=== PATIENT | female | born 1985 | race Caucasian/White ===

== ENCOUNTER 2022-07-20 00:19 | Day surgery (SDC) | payer OTHER, SELFPAY ==
[2022-07-17 11:37] VITALS: BMI 29.0
--- NOTE | 2022-07-17 11:47 | PC.NURSE ---
Report to the Outpatient Waiting Room, entrance under the green pavilion located off [facility], at time __0730 on date __07/20/22 . OR Time: . - You and your visitor will be asked to self-screen and do not enter if you have any COVID symptoms. - Only one visitor and NO children visitors are allowed at this time. - The patient visitor is requested to leave or wait in car when not with patient due to restrictions. - A mask is required within the hospital. Patients may have clear liquids (water, carbonated beverages, clear teas, apple juice) until 3 hours prior to surgery with a maximum of 20 ounces. - No food from midnight until time of surgery - Infants may have breast milk until 4 hours before surgery, infant formula 6 hours prior to surgery. - Children will be allowed to drink immediately following surgery. If applicable, please bring a bottle or sippy cup to assist with drinking. Juice, water, soda, and popsicles are readily available. For infants on formula, please bring formula the day of surgery. Pacifiers are allowed. Take the following medications with a SIP of water the morning of surgery: ANTIBIOTIC, PAIN PILL IF NEEDED Medications to discontinue per physician Date to take last dose Please no make-up, nail azerbaijani, hairspray, perfume, deodorant, or body powder the day of surgery. No jewelry (including any body piercings) or valuables the day of surgery, leave them at home. Please take a shower or bath the night before, or the morning of, surgery with an antibacterial soap. Wear comfortable, loose fitting clothing. Children are encouraged to wear pajamas. - Jewelry must be removed prior to entering the operating room. Rings and piercings that are not removed may be cut off. - The hospital will not accept responsibility for valuables. - Please leave all valuables, including medications, at home the day of surgery. If you are going home after surgery, a licensed armored car driver must drive you home. - NO public transportation without another adult. - We recommend that an adult stay with you for 24 hours following discharge. - We also recommend that you do not drive, make important decision, drink alcoholic beverages, or take any drugs that were not prescribed by your health care provider for at least 24 hours after your discharge time. For Pediatric surgeries, we recommend two adults accompany the child home (only one inside the building at this time). Follow any additional instructions given to you from your surgeon. If you or anyone in your household have experienced Covid symptoms in the past week, please notify your surgeon or the nurse liaison at the phone number below for possible testing. Telephone instructions given to ___PT and asked if any additional questions and then verbalized understanding. Patient advised to call surgeon office or pre surgery nurse liaison [phone] if any additional questions.
[2022-07-20] VITALS (8 sets, daily range): BP systolic 96–107; BP diastolic 50–67; PULSE 58–74; RESP 14–18; TEMP 36.1–36.3; O2SAT 99
--- NOTE | 2022-07-20 08:37 | WPDANESEPPF ---
Anes - Initial Pre Proc Eval Procedure: Operation Date: 07/20/22 09:30 Proposed Procedures p Exam Under Anesthesia, Incision and Drainage of Guerita-Rectal Abscess - Elva Bauer MD Date/Time: 07/20/22 08:37 Surgeon: Elva Bauer MD Pre Op Diagnosis: perirectal abscess Patient Data Age: 37 Gender: F Height: 1.8 m Weight: 94.5 kg Last Vital Signs Temp 36.1 C L 07/20/22 08:16 Pulse 70 07/20/22 08:16 Resp 18 07/20/22 08:16 BP 105/64 07/20/22 08:16 Pulse Ox 99 07/20/22 08:16 O2 Del Method Room Air 07/20/22 08:16 Allergies Allergy/AdvReac Type Severity Reaction Status Date / Time venom-wasp Allergy Unknown Anaphylactic Verified 07/20/22 08:21 Shock Home Medications Medication Instructions Recorded Confirmed Type sulfamethoxazole 800 1 tablet PO Q12H #20 tabs 07/14/22 07/20/22 Rx mg-trimethoprim 160 mg tablet (Bactrim DS) hydrocodone 5 mg-acetaminophen 325 1 tablet PO Q4H PRN pain #15 tabs 07/16/22 07/20/22 Rx mg tablet Patient hx anesthesia problems: none Family hx anesthesia problems: none Results Review: All pre-operative results and documents have been reviewed as part of the pre-operative evaluation. [facility] Past Medical History Medical History Abnormal Pap smear of cervix (04/04/14) ascus -HPV Arthritis Asthma BMI 30.0-30.9,adult Encounter for IUD insertion 04/03/05 Mirena insertion 01/10/20 Mirena insertion Encounter for IUD removal (~2009) Mirena removal Hemorrhoid thrombosis Herpes HSV 1 & 2 Perirectal abscess Psoriasis Smoker Surgical History Surgical History History of appendectomy (~2003) S/P skin biopsy Family History Family History Grandparent Acute myocardial infarction Daughter Heart valve regurgitation Heart murmur Sibling Diabetes mellitus sister Social History Social History Smoking packs per day: 0.5 Smoking cigarettes per day: 10.0 Years smoked: 15 Smoking pack-years: 7.50 Smoking status: Current every day smoker Tobacco type: cigarettes Second hand tobacco smoke exposure: Yes Alcohol intake: never Substance use: former Substance use type: marijuana Other substance usage details: A TEEN 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 Living arrangements: with family Additional living arrangements comments: single 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 Gender identity (if verbalized by the patient): Female Sexual Orientation (if Verbalized by the Patient): Straight or Heterosexual Spiritual care concerns: No Anes - Eval Final PreProcedure Day of Procedure 07/20/22 08:37 Patient weight: overweight Heart: regular rate and rhythm Lungs: clear to auscultation and normal air movement Airway: Mallampati scale class II Neurological: alert and oriented Last oral intake: >/= 8 hours ASA classification: II Emergent: no Anesthetic plan: proceed Anesthesia type and monitoring: general LMA and ETT Results Review: All pre-operative results and documents have been reviewed as part of the pre-operative evaluation. Informed Consent: The patient's anesthetic plan and its attendant risks and benefits were discussed with the patient/family/POA. Questions were solicited and answers provided to the satisfaction of the patient/family/POA.
[2022-07-20] MEDS: LACTATED RINGERS 1,000 ML 30 ML IV CONT (08:40)
[2022-07-20] MEDS: ACETAMINOPHEN 500 MG TABLET 1000 MG PO (08:41)
[2022-07-20] MEDS: KETOROLAC 15 MG/ML VIAL (*BKC) IV PUSH (08:41)
--- NOTE | 2022-07-20 08:57 | WPDHPUPDATE1 ---
History and Physical Update Update Date/Time: 07/20/22 08:57 History and Physical has been reviewed, including an updated exam of the patient. There are NO changes in the patient's condition. Risks, benefits, and alternatives have been discussed and questions answered. Patient agrees to proceed with procedure.
[2022-07-20] MEDS: ceFAZolin 2 GM/D5W 50 ML 2 GM/50 ML BAG IVPB (09:11)
[2022-07-20] MEDS: BUPIVACAINE/EPINEPHRINE 0.25% 50 ML VIAL 10 ML INFILTRATE (09:11)
--- NOTE | 2022-07-20 09:34 | W.PM.PROC2 ---
Procedure Note - Detailed Date of Procedure 07/20/22 Pre-op Diagnosis perirectal abscess Post-op Diagnosis Same Procedure Performed 1. Rectal exam under anesthesia 2. Incision and drainage of perirectal abscess Surgeon Fox Sevilla, DO Anesthesia MAC and Local (0.25% bupivacaine with epinephrine) Indications This is a 37-year-old woman who presented with perirectal swelling and pain. She was referred for possible thrombosed external hemorrhoid, but on exam there appeared to be a deeper area of fluctuance suspicious for a perirectal abscess. Incision and drainage was performed on 07/14/2022, but minimal drainage was expressed. She continued to have swelling and pain on a short follow-up therefore decision was made to proceed with rectal exam under anesthesia with deeper incision and drainage of perirectal abscess. Findings Rectal exam under anesthesia was performed. Upon digital rectal exam, no deep palpable abnormalities were noted. A Hill-Cheung anoscope was then also inserted in the anal rectal canal was carefully inspected. There was no evidence of internal fistula or other abnormalities internally. The anterior midline area of induration and swelling was the only abnormality noted. The deeper incision and drainage was performed. Scant purulence drainage was noted. There was not enough to perform cultures. The wound was then packed with quarter-inch iodoform gauze. Description of Procedure Procedure as well as risks, benefits, and alternatives were discussed with the patient. Written consent was obtained and placed in chart prior to procedure. Patient was brought back to surgical suite. She was placed supine on operating table. Time-out was done to confirm patient and procedure. LMA was then placed by the Anesthesia Department and general anesthesia was administered. She was placed in dorsal lithotomy position and her perirectal region was prepped and draped in sterile fashion using Betadine prep. Digital rectal exam was performed. A Hill-Cheung anoscope was then inserted and the anal rectal canal was carefully inspected. No internal abnormalities were noted. 0.5% bupivacaine with epinephrine was infiltrated around the anterior midline region where the perirectal abscess was. The incision was extended to about 2 cm using a 15 blade scalpel. A curved hemostat was then carefully used to dissect between the sphincter muscle fibers and drain any residual abscess. Scant drainage was noted, but no other abnormalities were encountered. The wound was then packed with quarter-inch iodoform gauze. Fluff gauze and mesh underwear were then applied. The patient was then awakened from anesthesia, extubated, and transferred to recovery. Estimated Blood Loss 5 Packing Yes (Quarter-inch iodoform gauze) Complications No immediate complications Condition Stable Disposition Same day [facility] Billing Surgery - Charge Forward: Surgery Billing
[2022-07-20] MEDS: fentaNYL CITRATE INJ (*CRX) 100 MCG/2 ML VIAL 25 MCG IV PUSH ×2 (10:05→10:10)
[2022-07-20] MEDS: oxyCODONE HCL (*CRX) 5 MG TAB IR PO (10:41)
== END 2022-07-20 11:35 | disposition home or self-care (01) ==
PROVIDERS: Visit Provider Surgery
PROC: (CPT 46040; principal; 2022-07-20 09:30)
DX: K61.1 Rectal abscess (principal); M19.90 Unspecified osteoarthritis, unspecified site; J45.909 Unspecified asthma, uncomplicated; L40.9 Psoriasis, unspecified; F17.210 Nicotine dependence, cigarettes, uncomplicated; F12.90 Cannabis use, unspecified, uncomplicated
CPT/HCPCS: 46040; A9270; J0690; J1100; J1885; J2250; J2405; J2704; J3010; J7120

== ENCOUNTER 2024-11-17 02:27 | Day surgery (SDC) | payer OTHER, SELFPAY ==
[2024-11-15 13:29] VITALS: BMI 29.9
--- NOTE | 2024-11-15 13:30 | PC.NURSE ---
Report to the Outpatient Waiting Room, entrance under the green pavilion located off [facility], at time _0800_ on date _[id number]_. Planned Procedure Time: _1000_.? Time changes happen often and if your time is changed the preop area will call you the afternoon before. - You and your visitor will be asked to self-screen and do not enter if you have any COVID symptoms. Please call surgeon if you need to reschedule. - A mask is optional within the hospital at this time. Patients may have clear liquids (water, carbonated beverages, clear teas, apple juice) until 3 hours prior to surgery with a maximum of 20 ounces. - No food from midnight until time of surgery and no smoking. This includes no chewing gum, candy or mints. Take only the following medications with a SIP of water on the morning of surgery: ____Inhaler if needed. DO NOT STOP ANY OF YOUR OTHER PRESCRIPTION MEDICATIONS PRIOR TO SURGERY EXCEPT THE FOLLOWING Medications to discontinue per physician Prenatal vitamin Date to take last dose____Stop now. Please no make-up, nail mongolian, hairspray, perfume, deodorant, or body powder the day of surgery.? No jewelry (including any body piercings) or valuables the day of surgery, leave them at home.? Please take a shower or bath the night before, or the morning of, surgery with an antibacterial soap.? Wear comfortable, loose fitting clothing.? - Jewelry must be removed prior to entering the operating room.? Rings and piercings that are not removed may be cut off. - The hospital will not accept responsibility for valuables.? - Please leave all valuables, including medications, at home the day of surgery. If you are going home after surgery, a licensed regional flatbed truck driver must drive you home.? - NO public transportation without another adult if you receive anesthesia. - We recommend that an adult stay with you for 24 hours following discharge. - We also recommend that you do not drive, make important decision, drink alcoholic beverages, or take any drugs that were not prescribed by your health care provider for at least 24 hours after your discharge time. Follow any additional instructions given to you from your surgeon. Telephone instructions given to __Amy__and asked if any additional questions and then verbalized understanding. Patient advised to call surgeon office or pre surgery nurse liaison [phone] if any additional questions.
--- NOTE | 2024-11-16 14:31 | WPDANESEPPF ---
Anes - Initial Pre Proc Eval Procedure: Operation Date: 11/17/24 10:00 Proposed Procedures p Suction Dilatation and Curettage - Toni Melendez MD Date/Time: 11/16/24 14:31 Surgeon: Toni Melendez MD Pre Op Diagnosis: missed AB Patient Data Age: 39 Gender: F Height: 1.77 m Weight: 93.2 kg Allergies Allergy/AdvReac Type Severity Reaction Status Date / Time venom-wasp Allergy Unknown Anaphylactic Verified 11/17/24 08:18 Shock Home Medications ?Medication ?Instructions ?Recorded ?Confirmed ?Type vitamins-iron fumarate 65 1 tablet PO DAILY 10/23/24 11/17/24 History mg iron-folic acid 1 mg tablet albuterol sulfate 90 mcg/actuation 2 puff inhalation Q6H PRN 11/15/24 11/17/24 History aerosol inhaler shortness of breath or wheezing Patient hx anesthesia problems: none Family hx anesthesia problems: none Results Review: All pre-operative results and documents have been reviewed as part of the pre-operative evaluation. [facility] Past Medical History Medical History Bursitis Screen for STD (sexually transmitted disease) BMI 30.0-30.9,adult Perirectal abscess REUA and I&D perirectal abscess on 07/20/22. Hemorrhoid thrombosis Smoker Arthritis Encounter for IUD removal (~2009) Mirena removal Encounter for IUD insertion 04/03/05 Mirena insertion 01/10/20 Mirena insertion Herpes HSV 1 & 2 Psoriasis Abnormal Pap smear of cervix (04/04/14) ascus -HPV Asthma Surgical History Surgical History History of shoulder surgery (~01/2024) H/O hemorrhoidectomy S/P skin biopsy History of appendectomy (~2003) Family History Family History Grandparent Acute myocardial infarction Daughter Heart valve regurgitation Heart murmur Sibling Diabetes mellitus sister Social History Social History Smoking packs per day: 0.5 Smoking cigarettes per day: 10.0 Years smoked: 15 Smoking pack-years: 7.50 Smoking status: Current every day smoker Tobacco type: cigarettes Second hand tobacco smoke exposure: Yes Alcohol intake: never Substance use: former Substance use type: marijuana Other substance usage details: A TEEN 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 Do You Feel Safe in your Home?: Yes Lack of Transportation: No Lack of Food: Never True Current Housing: I Have Housing Concerned About Future Housing: No Difficulty Paying Gas/Electric Bills: No Difficulty Paying for Meds: No Currently Unemployed: No Education: High School Diploma/GED Difficulty w/ Childcare or Family Care: No Living arrangements: with family Additional living arrangements comments: fiance Occupation/Education: occupation 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 Gender identity (if verbalized by the patient): Female Sexual Orientation (if Verbalized by the Patient): Straight or Heterosexual Spiritual care concerns: No Anes - Eval Final PreProcedure Day of Procedure 11/16/24 14:31 Patient weight: overweight Heart: regular rate and rhythm Lungs: clear to auscultation Airway: Mallampati scale class II Neurological: alert and oriented Last oral intake: >/= 8 hours ASA classification: II Emergent: no Anesthetic plan: proceed Anesthesia type and monitoring: general GIVS and standard monitoring Results Review: All pre-operative results and documents have been reviewed as part of the pre-operative evaluation. Informed Consent: The patient's anesthetic plan and its attendant risks and benefits were discussed with the patient/family/POA. Questions were solicited and answers provided to the satisfaction of the patient/family/POA.
[2024-11-17] VITALS (7 sets, daily range): BP systolic 96–105; BP diastolic 46–62; PULSE 58–68; RESP 14–16; TEMP 36.7; O2SAT 98–100
--- NOTE | 2024-11-17 07:46 | WPDHPUPDATE1 ---
History and Physical Update Update Date/Time: 11/17/24 07:46 History and Physical has been reviewed, including an updated exam of the patient. There are NO changes in the patient's condition. Risks, benefits, and alternatives have been discussed and questions answered. Patient agrees to proceed with procedure.
[2024-11-17] MEDS: ACETAMINOPHEN 500 MG TABLET 1000 MG PO (08:26)
[2024-11-17] MEDS: LACTATED RINGERS 1,000 ML 30 ML IV CONT (08:55)
[2024-11-17 09:20] LABS: Hematocrit 33.2 % (37.0-47.0); Hemoglobin 11.3 g/dL (12.0-15.0); Mean Corpuscular Hemoglobin 30.9 pg (26-34); Mean Corpuscular Volume 90.7 fl (80-100); Mean Platelet Volume 9.9 fl (7.4-10.4); Platelet Count Result 202 k/mm3 (150-375); Red Blood Count 3.66 M/mm3 (4.2-5.4); Red Cell Distribution Width 12.4 % (11.5-14.5); White Blood Count 6.5 K/mm3 (4.5-10.0)
--- NOTE | 2024-11-17 10:22 | W.PM.PROC2 ---
Procedure Note - Detailed Date of Procedure 11/17/24 Pre-op Diagnosis missed AB Post-op Diagnosis Same Procedure Performed Suction curettage Surgeon Toni Melendez MD Anesthesia MAC Findings Moderate amount of retained products of conception Description of Procedure Patient was prepped and draped in usual manner for this procedure. Anterior cervix was grasped with single-tooth tenaculum and cervix was readily dilated to allow an 8mm suction curette be placed. The depth of the uterine cavity was 10 cm. Using the suction curette the intrauterine contents were readily removed. Sharp curette throughout with no remaining tissue no significant bleeding. At this point the procedure was considered terminated. Patient was sent to recovery room in good condition. Estimated Blood Loss 100 Drains No Packing No Pathology Yes Complications No immediate complications Condition Stable Disposition PACU [facility] Billing Surgery - Charge Forward: Surgery Billing
[2024-11-17] MEDS: oxyCODONE HCL (*CRX) 5 MG TAB IR PO (11:22)
== END 2024-11-17 11:47 | disposition home or self-care (01) ==
PROVIDERS: Visit Provider Obstetrics & Gynecology
PROC: (CPT 59820; principal; 2024-11-17 10:00)
DX: O02.1 Missed abortion (principal); F17.210 Nicotine dependence, cigarettes, uncomplicated
CPT/HCPCS: 59820; 36415; 85027; 88305; A9270; J2003; J2250; J2704; J3010; J7120

== ENCOUNTER 2024-11-21 08:05 | Outpatient (CLI) | payer OTHER, SELFPAY ==
--- NOTE | ~2024-11-21 | US_ITS ---
EXAMINATION: US pelvic complete w TV DATE: 11/21/2024 12:08 INDICATION: Pelvic pain. Other acute post procedural pain. TECHNIQUE: Multiple transabdominal and transvaginal sonographic images of the pelvis were obtained. COMPARISON: Ultrasound 11/15/2024 FINDINGS: TRANSABDOMINAL ULTRASOUND: The uterus measures 9.0 x 6.7 x 2.7 cm. There is no free fluid in the pelvis. TRANSVAGINAL ULTRASOUND: The endometrial complex measures 18 mm in thickness. The right ovary measures 4.6 x 2.8 x 2.9 cm. The left ovary measures 4.7 x 3.1 x 3.1 cm. IMPRESSION: 1. Thickened endometrial complex, consistent with retained products of conception. Reviewed, dictated and finalized at location A. [facility] IMPRESSION: 1. Thickened endometrial complex, consistent with retained products of concepti on.
--- OUTSIDE RECORDS SUMMARY | 2024-11-28 06:01 | XMS_ITS | Encounter Summary ---
Author Organization [facility] Address [address] [place] [address] Care Team Providers Care Canine Service Teacher Name Role Phone Toni Melendez MD Primary Care Provider [phone] Reason for Referral * Cardiac (Routine) - Closed Specialty Diagnoses / Procedures Referred By Jonah delacruz Referred To Contact Cardiology Diagnoses Prior with congenital cardiac defect, antepartum, second trimester (HCC) Procedures ECHO CONSULT - Maxim Mayer MD [address] [place] [address] [place] [address] Referral ID Status Reason Start Date Expiration Date Visits Re quested Visits Authorized [id number] Closed 04/28/2017 10/25/2017 1 1 Reason for Visit * Cardiac (Routine) - Closed Specialty Diagnoses / Procedures Referred By Jonah delacruz Referred To Contact Cardiology Diagnoses Prior with congenital cardiac defect, antepartum, second trimester (HCC) Procedures ECHO CONSULT - Maxim Mayer MD [address] [employer] [address] [place] [address] [place] [address] Referral ID Status Reason Start Date Expiration Date Visits Re quested Visits Authorized [id number] Closed 04/28/2017 10/25/2017 1 1 Encounter Details Date Type Department Care Team (Latest Contact Info) Description 05/20/2017 10:45 AM CDT - 05/20/2017 11:59 PM CDT Hospital [facility] [address] [place] [address]. [place] [address] Damaris Yo MD [address] [place] [address] Discharge Disposition: Home or Self Care Social History Tobacco Use Types Packs/Day Years Used Date Smoking Tobacco: Every Day Cigarettes 0.5 10 Comments Yes Sex and Gender Information Value Date Recorded Sex Assigned at Not on file Gender Identity Female 04/21/2018 2:50 PM CDT Sexual Orientation Not on file documented as of this encounter Consult Notes * Damaris Yo MD - 05/20/2017 11:34 AM CDT Images from the original note were not included. Echocardiogram and Consultation Date: 05/20/2017 : [place] Referring Physician: Maxim Mayer MD [address] [place] [address] Melendez and Dr. Mayer: I had the pleasure of seeing your patient, Chelsea Hays, for echocardiographic evaluation and consultation on 05/20/2017. Indications for echocardiogram include a history of previous child with congenital heart disease. The previous child had a history of dilated ductus venosus and tri cuspid regurgitation prenatally. We were concerned that the ductus venosus would not close postnatally, however it did close and the tricuspid valve normalized. The child does have an atrial septal defect which persists and she is followed for this. The following clinical information was available at the time of the evaluation: Maternal Age: 32 y.o. Gestational Age: 27w1d Estimated Date of Delivery: 08/18/17 History : Complications of the : none Maternal Medical History: None Medications: vitamins Family History of Congenital Heart Disease: Yes, as noted above Previous Ultrasound: normal Abnormal HeartTones: none detected A complete 2-D, pulse wave and color Doppler echocardiogram was performed. The quality of thestudy was technically adequate. 2-D Findings: Visceroatrial situs solitus with levocardia. The systemic venous return was normal. There was atrioventricular and ventriculoarterial concordance. The right atrium and left atrium appeared normal size. There was a patent foramen ovale which bowed from right to left. The mitral valve and tricuspid valves were morphologically normal. The right and left ventricles were normal size for gestational age with normal wall thickness and normal systolic function. The ventricular septum appeared intact. The great vessels were normally related. The branch pulmonary arteries were confluent. A ductal arch was identified. The aortic arch appeared normal. No pericardial or pleural effusion. Doppler Examination: There was normal mitral and tricuspid inflow patterns with a dominant A wave and smaller E wave. No mitral or tricuspid insufficiency. There was normal laminar flow across the aortic and pulmonary valves. There was normal sqiux-fk-kkgj shunting across the ductus arteriosus in systole with a small amount in diastole. There was normal flow pattern in the transverse aortic arch.No arrhythmia was detected. IMPRESSION: Normal echocardiogram. RECOMMENDATIONS: I reviewed the findings of today's echocardiogram with the mother of the baby. I reassured her that there are no identified cardiac malformations on today's study, but that minor defects, such as small muscular VSDs or minor valve defects, could still be present postnatally. Based on the findings today, no further cardiology follow-up is needed unless new concerns or symptoms arise. Thank you again for allowing us to participate in the care of this patient. If you have any furtherquestions, please do not hesitate to contact me at . In general, echocardiography has an excellent sensitivity and specificity. However, certain heart lesions cannot be diagnosed in the fetus as they are a normal part of the circulation, e.g. secundum atrial septal defects and patent ductus arteriosus. Other congenital heart lesions that have proven difficult to diagnose in a fetus include coarctation of the aorta, total or partial anomalous pulmonary venous return, small ventricular septal defects, and coronary anomalies. Nor can we predict late gestation myocarditis or arrhythmias later in life such as Jhuiq-Qlaswflgj-Lpuap syndrome. Total time spent with the patient was 30 minutes with >50% time spent counseling regarding findings and limitations, and coordinating care. Sincerely, Damaris Yo MD documented in this encounter Plan of Treatment Not on file documented as of this encounter Procedures Procedure Name Priority Date/Time Associated Diagnosis Comments ECHO CONSULT - Routine 05/20/2017 11:08 AM CDT Prior with congenital cardiac defect, antepartum, second trimester (HCC) documented in this encounter Results * ECHO CONSULT - (05/20/2017 11:08 AM CDT) 05/20/2017 11:0 8 AM CDT Narrative Procedure Note Damaris Yo MD - 05/20/2017 [facility] [place] [id number] Fax Echocardiogram Report Pat.Name: CHELSEA HAYS Pat.ID: [id number] .Date: 05/20/2017 Exam Time: 11:08:00 AM Study Type: Echo Age: 4 1985,32Y Sex: FEMALE Sonogrphr: Suad Benítez RDCS Pat. Stat.:Outpatient CPT - 4: [id number], [id number], [id number], [id number] Reason for Study:Previous child with CHD History / Clinical:Previous child with CHD 08/18/17 210 Procedures: 2D Complete, Doppler Complete, Color Flow Visit ID: [id number] SUMMARY: Study Data: GA: 27w1d weeks. NINA: 08/18/2017 . : 5. Para: 4. Type: Brasher. Lie: Vertex. Impression: The echocardiogram was within normal limits; however small atrial and ventricular septal defects and persistent ductus arteriosus cannot be excluded as findings. Findings: Anatomic Relationships: Left sided cardiac apex (levocardia). There is normal visceral-cardiac situs, and normal segmental cardiac anatomical relationship. Systemic Veins: There is normal systemic venous return. Pulmonary Veins: The visualized pulmonary veins drain normally to the left atrium. Right Atrium: The right atrial size is normal. Left Atrium: The left atrial size is normal. Atrial Septum: Patent foramen ovale is seen with the foramen flap bowing from right to left and color flow is right to left. Tricuspid Valve: The tricuspid valve is structurally normal. The inflow pattern is normal. Tricuspid velocity is within the normal range. There is no regurgitation present. Mitral Valve: The mitral valve is structurally normal. The inflow pattern is normal. Mitral velocity is within the normal range. There is no regurgitation present. Right Ventricle: The cavity size is normal. The wall thickness is normal. The systolic function is normal. RV Outflow Tract: The outflow tract is normal. Left Ventricle: The cavity size is normal. The wall thickness is normal. The systolic function is normal. LV Outflow Tract: The outflow tract is normal. Ventricular Septum: There is no defect with no shunting. Pulmonary Valve: Leaflets exhibited normal mobility. The transpulmonic velocity is within the normal range. There is no regurgitation present. Aortic Valve: Leaflets exhibited normal mobility. The transaortic velocity is within the normal range. There is no regurgitation present. Pulmonary Artery: The MPA is normal with confluent branch pulmonary arteries. Aorta: aortic arch visualized and is without obstruction by 2D, color flow and Doppler. Ductus Arteriosus: The antegrade flow velocity and pattern in the ductal arch is normal. A normal ductus arteriosus is appreciated. Hydrops Assessment: No pericardial effusion. No evidence of ascites or pleural effusion. Rhythm: The rhythm is normal. There is 1:1 AV conduction. Dopplers: Flow in the ductus venosus is normal. The umbilical vein flow pattern is normal. The umbilical artery flow pattern is normal. MEASUREMENTS: DOPPLER Mitral Valve MV pkE 0.4 m/s MV pkA 0.5 m/s Tricuspid Valve TV pkE 0.4 m/s TV pkA 0.6 m/s Aortic Valve AVpkPG 2.9 mmHg AVpkVel 0.8 m/s Pulmonic Valve PV pkPG 1.9 mmHg PV pkVel 0.7 m/s MMODE HR 125.2 bpm HR 125.2 bpm Signed 05/20/2017 03:50 PM Damaris Yo MD Maxim Mayer MD ECHO ORDERABLES Performing Organization Address City/State/[facility] Co de Phone Number [facility] [address] [place] [address] documented in this encounter Visit Diagnoses Diagnosis Prior with congenital cardiac defect, antepartum, second trimester (HCC) documented in this encounter Care Teams Canine Service Teacher Relationship Specialty Start Date End Date Toni Melendez MD [address] [facility] [address] [place] [address] PCP - General Obstetrics and Gynecology 05/20/17 documented as of this encounter
--- OUTSIDE RECORDS SUMMARY | 2024-11-28 06:01 | XMS_ITS | Encounter Summary ---
Author Organization [facility] Address [address] [place] [address] Care Team Providers Care Business Risk Consultant Name Role Phone Holger Alves MD Primary Care Provider [phone] Encounter Details Date Type Department Care Team (Latest Contact Info) Description 08/31/2014 2:44 PM CDT - 08/31/2014 11:59 PM CDT Hospital Encounter [facility] & Care [address] [place] [address] Maxim Mayer MD [address] [address] Discharge Disposition: Home or Self Care Social History Tobacco Use Types Packs/Day Years Used Date Smoking Tobacco: Every Day Cigarettes 0.5 10 Comments Yes Sex and Gender Information Value Date Recorded Sex Assigned at Not on file Gender Identity Female 04/21/2018 2:50 PM CDT Sexual Orientation Not on file documented as of this encounter Plan of Treatment Not on file documented as of this encounter Procedures Procedure Name Priority Date/Time Associated Diagnosis Comments FIRST TRI NUCHAL TRANSLUCENCY W:SEQ SCREEN Routine 08/31/2014 3:34 PM CDT Encounter for nuchal translucency testing (HCC) documented in this encounter Results * FIRST TRI NUCHAL TRANSLUCENCY W:SEQ SCREEN (08/31/2014 3:34 PM CDT) Anatomical Region Laterality Modality Other 08/31/2014 3:34 PM CDT Narrative 08/31/2014 4:25 PM CDT ?[facility] Maternal Medicine ? [facility] ?PHONE: ??FAX: ? Pat. Name: ?CHELSEA DANIEL Pat. No: ?[id number] Study Date: ?? 08/31/2014 ??3:34pm , Age: ? 1985, 29 LMP: ?Unknown GA by US: ? 10w4d GA Selected: ??10w1d (From Known E) NINA: ?03/28/2015 Referring MD: Edelmira Andrade MD Bus Driver: ??Magda Roldan RDMS Hist/Ind: ? Previous Child with a Heart Defect ?NIPT MEASUREMENTS & AGE ? GROWTH EVALUATION Measurement ??GA ? Range ? Srce %for GA Ratios ----- ---- ------- CRL ??3.7 cm 10w4d ([id number]) Hadl CRL 72% GA for sonogram 10w4d ([id number]) based on (CRL) Avg ? Heart Rate: 168 bpm CLINICAL SUMMARY Study Number: ??1 A single intrauterine gestational sac is seen. ??The gestational sac contains a embryonic pole and a yolk sac. ??The right ovary was not visualized. ??The left ovary was not visualized. ??There is no free fluid in the cul de sac. Blood was drawn for NIPT. IMPRESSION: Single, live IUP at 10w1d No gross anomalies seen RECOMMEND: ?? Follow up ultrasound at 20 weeks for anatomy survey Patient with history of prior child with VSD Patient elected for NIPT with 22q testing Thank you for allowing us the opportunity to care for your patient. Maxim Mayer MD <Electronic Signature> ??08/31/2014 04:26pm Edelmira Andrade MD [facility] ORDERABLES documented in this encounter Visit Diagnoses Diagnosis Encounter for nuchal translucency testing (HCC)- Primary Other specified screening Prior with congenital cardiac defect, antepartum, first trimester (HCC) Supervision of other normal , first trimester (HCC) documented in this encounter Care Teams Business Risk Consultant Relationship Specialty Start Date End Date Holger Alves MD [address] [place] [address] [address] [place] [address] PCP - General Internal Medicine 05/30/13 01/07/15 documented as of this encounter
--- OUTSIDE RECORDS SUMMARY | 2024-11-28 06:01 | XMS_ITS | Encounter Summary ---
Author Organization [facility] Address [address] [facility] [place] [address] Care Team Providers Care Export Coordinator Name Role Phone Toni Melendez MD Primary Care Provider [phone] Reason for Visit * Evaluate & Treat (Routine) - Closed Specialty Diagnoses / Procedures Referred By Jonah delacruz Referred To Contact Cardiology Diagnoses Supervision of other high risk pregnancies, unspecified trimester (HCC) Maternal care for (suspected) hereditary disease in fetus, not applicable or unspecified (HCC) Procedures [place] [facility] Elana Lin NP [address] [facility] [address] [place] [address] [address] Referral ID Status Reason Start Date Expiration Date Visits Re quested Visits Authorized [id number] Closed 05/10/2018 02/03/2019 1 1 Encounter Details Date Type Department Care Team (Latest Contact Info) Description 05/10/2018 2:30 PM CDT - 05/10/2018 11:59 PM CDT Hospital Encounter [facility] at [address] [address] Blanca Mendoza MD [address] [place] [address] Discharge Disposition: Home or Self Care Social History Tobacco Use Types Packs/Day Years Used Date Smoking Tobacco: Every Day Cigarettes 0.5 10 Comments Yes Sex and Gender Information Value Date Recorded Sex Assigned at Not on file Gender Identity Female 04/21/2018 2:50 PM CDT Sexual Orientation Not on file documented as of this encounter Consult Notes * Blanca Mendoza MD - 05/10/2018 3:15 PM CDT Images from the original note were not included. Attending Physician: Blanca Mendoza MD Office Echocardiogram and Consultation Date: 05/10/2018 Institution:[facility] Referring Physician: Elana Lin NP [address] [address] [address] [place] [address] Dear Elana Lin NP, I had the pleasure of seeing your patient, Chelsea Hays, for echocardiographic evaluation and consultation on 05/10/2018. Indications for echocardiogram include a history of previous child with congenital heart disease. The following clinical information was available at the time of the evaluation: Maternal Age: 33 years old. Gestational Age: 26 2/7 weeks. Estimated Date of Delivery: 08/14/2018 History : G6,P5. Complications of the : Admitted recently due to contractions. Maternal Medical History: Psoriasis History of antepartum diabetes: No Medications: vitamins Family History of Congenital Heart Disease: Yes; Daughter Maureen (4yrs) with large ductus venosus and tricuspid regurgitation. Residual atrial septal defect followed by Dr. Yo. Social History: . Smoker. 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 The aortic and pulmonary valves were thin and mobile. The branch pulmonary arteries were confluent. A ductal arch was identified. The aortic arch appeared normal. No pericardial or pleural effusion. Doppler Examination: There were normal mitral and tricuspid inflow patterns with a dominant A wave and smaller E wave. No mitral or tricuspid insufficiency. There was normal laminar flow across the aortic and pulmonary valves. There was normal rbelq-es-oeku shunting across the ductus arteriosus in systole with a small amount in diastole. There was normal flow pattern in the transverse aortic arch. No arrhythmia was detected. heart rate was 138 beats per minute. Normal umbilical artery andumbilical vein flow profiles. Normal ductus venosus flow profile. Abnormal HeartTones: none detected IMPRESSION:No evidence of congenital heart disease. RECOMMENDATIONS: I reviewed the findings of today's echocardiogram with . Chelsea Hays and her aunt. The echocardiogram showed a structurally normal heart without evidence of cardiac pathology and noabnormal heart rhythms were noted. No further follow-up is required unless any new cardiacconcerns are noted. Thank you again for allowing us to participate in the care of this patient. If you have any furtherquestions, please do not hesitate to contact me at . Sincerely, Blanca Mendoza MD In general, echocardiography has an excellent sensitivity [...] or arrhythmias later in life such as Wxiod-Adxpdknwm-Yalrc syndrome. Total time spent with the patient was 45 minutes with >50% time spent counseling regarding findings and limitations. documented in this encounter Plan of Treatment Not on file documented as of this encounter Procedures Procedure Name Priority Date/Time Associated Diagnosis Comments ECHO CONSULT - Routine 05/10/2018 2:48 PM C DT Prior with congenital cardiac defect, antepartum (HCC) documented in this encounter Results * ECHO CONSULT - (05/10/2018 2:48 PM CDT) 05/10/2018 2:48 PM CDT Narrative Procedure Note Blanca Mendoza MD - 05/10/2018 [place] [address] Fax Echocardiogram Report Pat.Name: CHELSEA HAYS Pat.ID: [id number] St.Date: 05/10/2018 Exam Time: 2:48:00 PM Study Type: Echo Age: 4 1985,33Y Sex: FEMALE Sonogrphr: JENNIFER Green Pat. Stat.:Outpatient Reason for Study:Family History of Congenital Heart Disease Procedures: 2D Complete, Doppler Complete, Color Flow Visit ID: [id number] SUMMARY: Study Data: GA: 26/2 weeks. NINA: 08/14/2018 . : 6. Para: 5. Type: [place]. Lie: Breech. Impression: The echocardiogram was within normal limits; [...] Mitral Valve MV pkE 0.4 m/s MV E/A 0.8 no unit MV pkA 0.5 m/s Aortic Valve AVpkVel -0.9 m/s Pulmonic Valve PV pkVel 0.7 m/s Thorax Cardiac Circumf 98.4 mm CTCR 0.6 no unit Thorax Circumfe 179.9 mm Signed 05/10/2018 04:23 PM Blanca Mendoza MD Blanca Mendoza MD ECHO ORDERABLES [facility] [address] [place] [address] documented in this encounter Visit Diagnoses Diagnosis Prior with congenital cardiac defect, antepartum (HCC)- Primary with other poor obstetric history documented in this encounter Care Teams Export Coordinator Relationship Specialty Start Date End Date Toni Melendez MD [address] [place] [address] PCP - General Obstetrics and Gynecology 05/20/17 documented as of this encounter
--- OUTSIDE RECORDS SUMMARY | 2024-11-28 06:01 | XMS_ITS | Encounter Summary ---
Author Organization [facility] Address [address] [place] [address] Care Team Providers Care Tannery Worker Name Role Phone Holger Alves MD Primary Care Provider [phone] Encounter Details Date Type Department Care Team (Latest Contact Info) Description 12/11/2014 11:00 AM QUALITY TECH - 12/11/2014 11:59 PM QUALITY TECH Hospital Encounter [facility] Care [address] [place] [address] Yamilka Leroy MD [address] [id number] Discharge Disposition: Home or Self Care Social [...] Procedure Name Priority Date/Time Associated Diagnosis Comments SONOGRAM - COMPLETE Routine 12/11/2014 11:49 AM QUALITY TECH Encounter for routine screening for malformation using ultrasonics documented in this encounter Results * SONOGRAM - COMPLETE (12/11/2014 11:49 AM QUALITY TECH) Anatomical Region Laterality Modality Other 12/11/2014 11:4 9 AM QUALITY TECH Narrative 12/11/2014 1:37 PM QUALITY TECH ?[facility] Maternal Medicine ? M[facility] Care Center ?PHONE: ??FAX: ? Pat. Name: ?CHELSEA HAYS Pat. No: ?[id number] Study Date: ?? 12/11/2014 ??11:49am , Age: ? 1985, 29 LMP: ?Unknown GA by 1st: ?24w5d GA by US: ? 24w3d GA Selected: ??24w5d (From First S) NINA: ?03/28/2015 Referring MD: Edelmira Andrade MD Circulating Nurse: ??Kenyetta Earl RDMS CPT4: ? [address] Hist/Ind: ? Incomplete anatomic survey ?Prior child with congential heart defect MEASUREMENTS & AGE ? GROWTH EVALUATION Measurement ??GA ? Range ? Srce %for GA Ratios ----- ---- ------- BPD ??5.8 cm 23w5d ([id number]) Hadl BPD 25% FL/BPD 0.78 (0.71 - 0.87) HC ??22.3 cm 24w2d (03t5s-52b7i) Hadl HC ??42% FL/AC ??0.23 (0.20 - 0.24) AC ??19.9 cm 24w4d ([id number]) Hadl AC ??47% HC/AC ??1.12 (1.02 - 1.21) FL ?? 4.5 cm 24w6d (00t5t-60n8s) Hadl FL ??53% CI ? 0.73 (0.70 - 0.86) HL ?? 4.1 cm 24w4d ([id number]) Ted HL ??47% GA for sonogram 24w3d (25g1n-90e5i) ?? Weight Estimate: based on (HL,BPD,HC,AC,FL) Avg ? Weight: 716 gm (612-821) Hadlock ? : 1lbs, 9oz ? Normal: 752 gm (564-940) Hadlock ? Wt% ? 41% for 24w5d Heart Rate: 128 bpm CLINICAL SUMMARY Study Number: 3 A single fetus is identified breech presentation. The amniotic fluid volume is within normal limits. ??The placenta is posterior. IMPRESSION: ?? 1) Brasher gestation, 24w5d 2) Biometry is consistent with the previously established NINA of 03/28/15 3) No structural abnormalities have been detected on the, now complete, anatomic survey NOTE: The patient was advised that ultrasound does not allow detection of all structural or chromosomal abnormalities. ?? RECOMMEND: ?? Follow up at the [facility] for a echo in 4 weeks Thank you for allowing us the opportunity to care for your patient. Yamilka Leroy MD <Electronic Signature> ??12/11/2014 01:37pm Yamilka Leroy MD [facility] ORDERABLES documented in this encounter Visit Diagnoses Diagnosis Encounter for routine screening for malformation using ultrasonics (HCC)- Primary Encounter for routine screening for malformation using ultrasonics Prior with congenital cardiac defect, antepartum, second trimester (HCC) documented in this encounter Care Teams Tannery Worker Relationship Specialty Start Date End Date oHlger Alves MD [address] [place] [address] [address] [place] [address] PCP - General Internal Medicine 05/30/13 01/07/15 documented as of this encounter
--- OUTSIDE RECORDS SUMMARY | 2024-11-28 06:01 | XMS_ITS | Encounter Summary ---
Author Organization [facility] Address [address] [place] [address] Care Team Providers Care Academic Affairs Coordinator Name Role Phone Holger Alves MD Primary Care Provider [phone] Reason for Referral * - Closed Specialty Diagnoses / Procedures Referred By Contac t Referred To Contact Cardiology Diagnoses abnormality in (HCC) Procedures ECHO CONSULT - Echo 10199 Placido Cortez MD [address] [facility] [address] [place] [address] Referral ID Status Reason Start Date Expiration Date Visits Re quested Visits Authorized [id number] Closed 06/14/2013 12/03/2013 1 1 Encounter Details Date Type Department Care Team (Latest Contact Info) Description 06/02/2013 3:30 PM CDT - 06/02/2013 11:59 PM CDT Hospital Encounter [facility] [address] [place] [address] Placido Cortez MD [address] [place] [address] Discharge Disposition: Home or Self Care Social History Tobacco Use Types Packs/Day Years Used Date Smoking Tobacco: Every Day Cigarettes 0.5 10 Tobacco Cessation:Ready to Q uit: No Comments Yes Sex and Gender Information Value Date Recorded Sex Assigned at Not on file Gender Identity Female 04/21/2018 2:50 PM CDT Sexual Orientation Not on file documented as of this encounter Plan of Treatment Not on file documented as of this encounter Procedures Procedure Name Priority Date/Time Associated Diagnosis Comments SONOGRAM - COMPLETE Routine 06/02/2013 5 :05 PM CDT abnormality in (HCC) documented in this encounter Results * ECHO CONSULT - (06/14/2013 3:42 PM CDT) 06/14/2013 3:42 PM CDT Narrative [facility] - 06/16/2013 11:24 AM CDT [facility] , Echocardiogram 2D, Doppler, and Color Doppler Name: CHELSEA DANIEL MR #: [id number] Study date: 06/14/2013 Age: : 1985 Gender: Female Ht: / Wt: / BSA: HR: BP: / age: 32 weeks NINA: 08/06/2013 Maternal age: 28 years CARDIOVASCULAR OR NURSE: ??Damaris oY MD PEDIATRIC ECHO TETRYL SCREEN OPERATOR: ??JENNIFER Green History/ Indications: Dilated ductus venosus. Rule out CHD. Procedure: The study was performed in the [facility] [place]. Echocardiogram. The mother was G 3, P 2. type: single fetus. The fetus is in vertex presentation. rhythm: The rhythm was normal. There was 1:1 AV conduction. dopplers: Flow in the ductus venosus was normal. The umbilical vein flow pattern was normal. The umbilical artery flow pattern was normal. Anatomic relationships: Visceral situs: normal. Left sided cardiac apex (levocardia). There was normal visceral-cardiac situs, and normal segmental cardiac anatomical relationship. Systemic veins: There was normal superior vena cava drainage. IVC not well visualized. Ductus venosus: The umbilical vein and ductus venosus was enlarged. The ductus venosus course appeared to pass more anteriorly than typical. Pulmonary veins: Doppler: Color flow pattern showed normal draining to the left atrium in the visualized pulmonary vein(s). Right atrium: Size was normal. Left atrium: Size was normal. Atrial septum: Patent foramen ovale is seen with the foramen flap bowing from right to left and color flow is right to left. Tricuspid valve: Mildly thickened tricuspid valve. Doppler: The inflow pattern and transtricuspid velocity were within the normal range. There was mild regurgitation. Mitral valve: Valve structure was normal. Doppler: The inflow pattern and transmitral velocity were within the normal range. There was no regurgitation. Right ventricle: The cavity size was normal. Wall thickness was normal. Systolic function was normal. Left ventricle: The cavity size was normal. Wall thickness was normal. Systolic function was normal. Ventricular septum: The septum was intact. Pulmonic valve: Leaflets exhibited normal mobility. Doppler: The transpulmonic velocity was within the normal range. There was no regurgitation. Aortic valve: Leaflets exhibited normal mobility. Doppler: Transaortic velocity was within the normal range. There was no regurgitation. Pulmonary artery: The main pulmonary artery was normal, with normal-sized, confluent branch pulmonary arteries. Aorta: aortic arch visualized and was without obstruction by 2D, color flow and Doppler. Extracardiac shunting: Ductus arteriosus: The antegrade flow velocity and pattern in the ductal arch was normal. A normal ductus arteriosus was appreciated. Pericardium: There was no pericardial effusion. No evidence of ascites or pleural effusion. 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 Mildly thickened tricuspid valve with mild tricuspid regurgitation. Normal biventricular systolic function. Upper normal heart size. No evidence of hydrops. Recommendations: Recommend echocardiogram as an outpatient (if baby asymptomatic) to reevaluate tricuspid valve and for peristence of the ductus venosus. Recommend follow-up OB ultrasound - if any evidence of hydrops or increased cardiomegaly, we would be happy to reevaluate fetus prenatally. Prepared and signed by Damaris Yo MD Signed 06/16/2013 11:23:50 2D MEASUREMENTS General ?? (Reference) Cardiac area ?? 16 cm?? Thoracic area ?? 39.5 cm?? Cardiac circumference ?? 142 mm Thoracic circumference ?? 223 mm Cardiac area/thoracic area ?? 0.41 Cardiac circ/thoracic circ ?? 0.64 Legend: Predicted normals (shown in italics) are given as mean ?? 2 SD Asterisk (*) shelton values outside the specified normal range. System measurement tables PW Fetus=A MV A Darinel: 81.1 cm/s MV E Darinel: 47.1 cm/s MV E/A Ratio: 0.6 PV Vmax: 89.5 cm/s PV maxP.2 mmHg TR Vmax: 2.1 m/s TR maxP.9 mmHg TV A Darinel: 74 cm/s TV E Darinel: 51.6 cm/s TV E/A Ratio: 0.7 HR: 138.7 BPM Procedure Note 06/16/2013 [facility] , Echocardiogram 2D, Doppler, and Color Doppler Name: CHELSEA DANIEL MR #: [id number] Study date: 06/14/2013 Age: : 1985 Gender: Female Ht: / Wt: / BSA: HR: BP: / age: 32 weeks NINA: 08/06/2013 Maternal age: 28 years CARDIOVASCULAR OR NURSE: Damaris Yo MD PEDIATRIC ECHO TETRYL SCREEN OPERATOR: JENNIFER Green History/ Indications: Dilated ductus venosus. Rule out CHD. Procedure: The study was performed in the [facility] [place] [facility]. Echocardiogram. The mother was G 3, P 2. type: single fetus. The fetus is in vertex presentation. rhythm: The rhythm was normal. There was 1:1 AV conduction. dopplers: Flow in the ductus venosus was normal. The umbilical vein flow pattern was normal. The umbilical artery flow pattern was normal. Anatomic relationships: Visceral situs: normal. Left sided cardiac apex (levocardia). There was normal visceral-cardiac situs, and normal segmental cardiac anatomical relationship. Systemic veins: There was normal superior vena cava drainage. IVC not well visualized. Ductus venosus: The umbilical vein and ductus venosus was enlarged. The ductus venosus course appeared to pass more anteriorly than typical. Pulmonary veins: Doppler: Color flow pattern showed normal draining to the left atrium in the visualized pulmonary vein(s). Right atrium: Size was normal. Left atrium: Size was normal. Atrial septum: Patent foramen ovale is seen with the foramen flap bowing from right to left and color flow is right to left. Tricuspid valve: Mildly thickened tricuspid valve. Doppler: The inflow pattern and transtricuspid velocity were within the normal range. There was mild regurgitation. Mitral valve: Valve structure was normal. Doppler: The inflow pattern and transmitral velocity were within the normal range. There was no regurgitation. Right ventricle: The cavity size was normal. Wall thickness was normal. Systolic function was normal. Left ventricle: The cavity size was normal. Wall thickness was normal. Systolic function was normal. Ventricular septum: The septum was intact. Pulmonic valve: Leaflets exhibited normal mobility. Doppler: The transpulmonic velocity was within the normal range. There was no regurgitation. Aortic valve: Leaflets exhibited normal mobility. Doppler: Transaortic velocity was within the normal range. There was no regurgitation. Pulmonary artery: The main pulmonary artery was normal, with normal-sized, confluent branch pulmonary arteries. Aorta: aortic arch visualized and was without obstruction by 2D, color flow and Doppler. Extracardiac shunting: Ductus arteriosus: The antegrade flow velocity and pattern in the ductal arch was normal. A normal ductus arteriosus was appreciated. Pericardium: There was no pericardial effusion. No evidence of ascites or pleural effusion. 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 Mildly thickened tricuspid valve with mild tricuspid regurgitation. Normal biventricular systolic function. Upper normal heart size. No evidence of hydrops. Recommendations: Recommend echocardiogram as an outpatient (if baby asymptomatic) to reevaluate tricuspid valve and for peristence of the ductus venosus. Recommend follow-up OB ultrasound - if any evidence of hydrops or increased cardiomegaly, we would be happy to reevaluate fetus prenatally. Prepared and signed by Damaris Yo MD Signed 06/16/2013 11:23:50 2D MEASUREMENTS General (Reference) Cardiac area 16 cm?? Thoracic area 39.5 cm?? Cardiac circumference 142 mm Thoracic circumference 223 mm Cardiac area/thoracic area 0.41 Cardiac circ/thoracic circ 0.64 Legend: Predicted normals (shown in italics) are given as mean ?? 2 SD Asterisk (*) shelton values outside the specified normal range. System measurement tables PW Fetus=A MV A Darinel: 81.1 cm/s MV E Darinel: 47.1 cm/s MV E/A Ratio: 0.6 PV Vmax: 89.5 cm/s PV maxP.2 mmHg TR Vmax: 2.1 m/s TR maxP.9 mmHg TV A Darinel: 74 cm/s TV E Darinel: 51.6 cm/s TV E/A Ratio: 0.7 HR: 138.7 BPM Placido Cortez MD ECHO ORDERABLES [facility] [address] [place] [address] * SONOGRAM - COMPLETE (06/02/2013 5:05 PM CDT) Anatomical Region Laterality Modality Other 06/02/2013 5:05 PM CDT Narrative 06/02/2013 7:34 PM CDT ?[facility] ? [facility] ?PHONE: ??FAX: ? Pat. Name: ?CHELSEA DANIEL Pat. No: ?[id number] Study Date: ?? 06/02/2013 ??5:05pm , Age: ? 1985, 28 Pregnancies: ?? 3, Para 2 LMP: ?10/29/2012 GA by LMP: ?30w6d GA by US: ? 31w2d GA Selected: ??30w6d (LMP) NINA: ?08/05/2013 Referring MD: Dmitri Andrade MD National Sales Executive: ??Britta Majano RDMS Hist/Ind: ? Heart Defect Seen on Outside Scan MEASUREMENTS & AGE ? GROWTH EVALUATION Measurement ??GA ? Range ? Srce %for GA Ratios ----- ---- ------- BPD ??7.8 cm 31w2d ([id number]) Hadl BPD 55% FL/BPD 0.76 (0.71 - 0.87) HC ??28.7 cm 31w4d (66p3u-88w0a) Hadl HC ??61% FL/AC ??0.21 (0.20 - 0.24) AC ??28.8 cm 32w5d (86j9y-21i1h) Hadl AC ??78% HC/AC ??1.00 (0.97 - 1.16) FL ?? 5.9 cm 31w0d (12q0b-22l4n) Hadl FL ??51% CI ? 0.77 (0.70 - 0.86) HL ?? 5.1 cm 29w5d (53i8u-99h7y) Ted HL ??31% GA for sonogram 31w2d (47m7m-82r5j) ?? Weight Estimate: based on (HL,BPD,HC,AC,FL) Avg ? Weight: 1876 gm (9738-8455) Hadlo ? : 4lbs, 2oz ? Normal: 1613 gm (1165- 2271) Brenn ? Wt% ? 66% for 30.9 wks Heart Rate: 138 bpm CLINICAL SUMMARY Study Number: ??1 A garner fetus is identified in cephalic presentation. ??The measurements today are consistent with appropriate growth for the NINA provided.. ??The NINA selected is based on her LMP and a prior ultrasound examination. ??The amniotic fluid volume is within normal limits. ??The placenta is anterior, Grade 2. ??The anatomy was not well visualized due to position and size. ??The patient was advised that ultrasound does not allow detection of all structural or chromosomal abnormalities. ?? ECHO: Situs solitus The heart is of normal size. ?? Normal ??4 chamber heart was visualized with normal cardiac axis. ?? Normal ??right ventricular outflow tracts. Normal left ventricular outflow tracts. The following was well visualized: aortic arch The following was well visualized: ductal arch No pericardial effusion observed The ductus venosus does not appear to move through the liver. ?? The Doppler interrogation of the ductus venosus is note normal ANATOMY: There is no evidence of cardiomegaly. Right and left atria are symmetric and approximately equal in size. ?? Right and left ventricles are symmetric and approximately equal in size. HEART RATE AND RHYTHM: heart rate is 141 bpm. ??Normal sinus rhythm. IMPRESSION: ?? Single, live, IUP 30w6d. No anomalies identified on an incomplete anatomical survey The ductus venosus has a cursory or non-hepatic path to the heart The umbilical vein is large in diameter through the intra abdominal course The umbilical vein drains either into the right atrium or into the coronary sinus The umbilical cord possesses 3 vessels Cardiac venous return is not well visualized RECOMMEND: ?? Follow up ultrasound in four to six weeks echo cardiologic evaluation to be scheduled in the next 2 - 3 weeks Thank you for allowing us the opportunity to care for your patient. Maxim Mayer MD <Electronic Signature> ??06/02/2013 07:34pm Revised Edelmira Andrade MD [facility] ORDERABLES documented in this encounter Visit Diagnoses Diagnosis abnormality in (HCC) Unspecified abnormality affecting management of mother, unspecified as to episode of care abnormality in (HCC) Unspecified abnormality affecting management of mother, unspecified as to episode of care documented in this encounter Care Teams Academic Affairs Coordinator Relationship Specialty Start Date End Date Holger Alves MD [address] [place] [address] [address] [place] [address] PCP - General Internal Medicine 05/30/13 01/07/15 documented as of this encounter
--- OUTSIDE RECORDS SUMMARY | 2024-11-28 06:01 | XMS_ITS | Encounter Summary ---
Author Organization [facility] Address [address] [place] [address] Care Team Providers Care Traffic Engineering Director Name Role Phone Toni Melendez MD Primary Care Provider Reason for Referral * Cardiac - Closed Specialty Diagnoses / Procedures Referred By Contac t Referred To Contact Cardiology Diagnoses Prior with congenital cardiac defect, antepartum, second trimester (HCC) Procedures ECHO CONSULT - Yamilka Leroy MD [address] [place] [address] [address] Referral ID Status Reason Start Date Expiration Date Visits Re quested Visits Authorized [id number] Closed 11/13/2014 05/12/2015 1 1 ISTLER OPERATOR Reason for Visit * Evaluate & Treat (Routine) - Closed Specialty Diagnoses / Procedures Referred By Contac t Referred To Contact Maternal Medicine Diagnoses Supervision of other high-risk (V23.89) (HCC) Hereditary disease in family possibly affecting fetus, affecting management of mother, antepartum condition or complication (HCC) Procedures [facility] Yamilka Leroy MD [address] [place] [address] [facility] [address] [place] [address] Referral ID Status Reason Start Date Expiration Date Visits Re quested Visits Authorized [id number] Closed 01/08/2015 05/28/2015 1 1 Encounter Details Date Type Department Care Team (Latest Contact Info) Description 01/08/2015 10:00 AM DETHISTLER OPERATOR - 01/08/2015 11:59 PM [facility] Hospital Encounter [facility] at [address] [address] Yamilka Leroy MD [address] [facility] [address] [place], [place] [id number] Discharge Disposition: Home or Self Care Social History Tobacco Use Types Packs/Day Years Used Date Smoking Tobacco: Every Day Cigarettes 0.5 10 Comments Yes Sex and Gender Information Value Date Recorded Sex Assigned at Not on file Gender Identity Female 04/21/2018 2:50 PM CDT Sexual Orientation Not on file documented as of this encounter Progress Notes * Helen Miguel MD - 01/08/2015 11:29 AM CST Images from the original note were not included. Attending Physician: Yamilka Leroy MD Office 01/08/2015 11:29 AM Echocardiogram and Consultation Date: 01/08/2015 Institution: [facility] : [facility] Referring Physician: Yamilka Leroy MD [address] Leryo I had the pleasure of seeing your patient, Chelsea Hays , for echocardiographic evaluationand consultation on 01/08/2015. Indications for echocardiogram include a history of family history of congenital heart disease. The following clinical information was available at the time of the evaluation: Maternal Age: 29 y.o. Maternal Medical History: None, history of antepartum diabetes: No Gestational Age: 28 weeks. Estimated Date of Delivery: 03/28/15 History : G2,P1. Medications: vitamins Smoking status: Smoker Family History of Congenital Heart Disease: Yes - 18 month old child with ASD, no surgery to date Previous Ultrasound: normal A complete 2-D, pulse wave and color Doppler echocardiogram was performed. The quality of thestudy was technically adequate. The fetus is in vertex position. The cardiac silhouette is within the left hemithorax. There is oneto one AV conduction noted with heart rate 136bpm. The four chamber view of the heart is normal with two well formed AV valves, atria and ventricles. Color flow interrogation in the four chamber view is normal without evidence of VSD or AV valve regurgitation. Mitral and tricuspid inflow Doppler patterns are normal. The septal view of the heart is normal without evidence of VSD. The septal thickness is normal for gestational age. The PFO flow is from right to left and color flow confirms this finding. The sagittal view of the heart demonstrates the anterior most great vessel to bifurcate, consistent with the pulmonary artery. The pulmonary and aortic valve annuli are symmetric in size. Doppler flow interrogation of the great vessels is normal for gestational age. The ductal arch andaortic arch are well visualized and are without obstruction by 2D, color flow and Doppler interrogation. IMPRESSION:Normal cardiac anatomy. RECOMMENDATIONS: No further follow-up is required unless any new cardiac concerns are noted. I reviewed the findings of today's echocardiogram with the patient and the father of the baby. I reassured them that there are no identified malformations on today's study, but that minor defects, such as small muscular VSDs could still be present postnatally. Thank you again for allowing us to participate in the care of this patient. If you have any further questions, please do not hesitate to contact me at . Sincerely, Helen Miguel MD CC: Toni Melendez [address] [address] / [facility] [address] Date: 01/08/2015 11:29 AM In general, echocardiography has an excellent sensitivity and specificity. However, certain heart lesions cannot be diagnosed in the fetus as they are a normal part of the circulation, e.g. secundum atrial septal defects and patent ductus arteriosus. Total time spent with the patient was 20 minutes with >50% time spent counseling regarding findings and limitations. ISTLER OPERATOR documented in this encounter Plan of Treatment Not on file documented as of this encounter Procedures Procedure Name Priority Date/Time Associated Diagnosis Comments CARDIAC ECHOCARDIOGRAM COMPLETE ORDER 01/09/2015 10:17 PM DETHISTLER OPERATOR ECHO CONSULT - Routine 01/08/2015 11:34 AM DETHISTLER OPERATOR Prior with congenital cardiac defect, antepartum, second trimester (HCC) documented in this encounter Results * CARDIAC ECHOCARDIOGRAM COMPLETE ORDER (01/09/2015 10:17 PM DETHISTLER OPERATOR) Narrative 01/09/2015 10:17 PM DETHISTLER OPERATOR Ordered by an unspecified provider. Scanned Document ECHO ORDERABLES * ECHO CONSULT - (01/08/2015 11:34 AM DETHISTLER OPERATOR) 01/08/2015 11:3 4 AM DETHISTLER OPERATOR Narrative [facility] - 01/08/2015 12:11 PM DETHISTLER OPERATOR ?[address] [place] [address] ?[phone] Phone ?[phone] Fax ? Echocardiogram Report Pat.Name: ??CHELSEA HAYS ?Pat.ID: ?[id number] ? St.Date: ?? 01/08/2015 ? Exam Time: 11:34:00 AM ? Study Type: Echo ?Age: ??1985,29Y ? Sex: ? FEMALE ?Sonogrphr: Khadijah Stringer, RDCS ? Pat. Stat.:Outpatient ?Room: ?echo lab ? CPT - 4: ?? 02393, 16541, 18095, [id number] Procedures:Doppler Color Flow, 2D Complete, Doppler Complete, Doppler Umbilical artery Visit ID: ??[id number] ? SUMMARY: Study Comments: ?? echocardiogram performed on a 28 week single fetus. NINA is 03-28-15. All cardiac structures are well visualized. The fetus is in vertex position. Impressions: ??The echocardiogram was within normal limits; however, small atrial and ventricular septal defects and persistent ductus arteriosus cannot be excluded as findings. Findings Anatomic Relationships: Visceral situs: Normal. ??Cardiac apex: Levocardia. ??Atrial situs: ??Solitus. ??AV alignment: Concordant. Ventricular looping: ??D-looped. ??VA connection: ??Concordant. ??Arterial relationships: ??Normal. ?? Systemic Venous Return: Normal. Pulmonary Veins: At least two pulmonary veins seen draining to left atrium. RA Size: ??Normal. LA Size: ?? Normal. Atrial Septum: ??Normal foramen ovale. ??Shunt: Hzhic-pf-Bxgw, Non-restrictive. ? Tricuspid Valve: Structure: Normal. Stenosis:No. Regurgitation: No. ?? Mitral Valve: Structure: Normal. Stenosis: No. Regurgitation: No. Ventricles: ??RV size: ??Normal. ??RV wall thickness: ??Normal. ??RV function: Normal. ?? LV size: Normal. LV wall thickness: ??Normal. ??LV function:Normal. IVS: ??Defect Type/Size: None./None. ??Shunt: None. Outflow Tracts: RVOT: ??Normal. LVOT: ??Normal. Grt Vessls: ??Pulmonary Valve: ??Structure: Normal. Stenosis: No. Regurgitation: No. ?? Aortic Valve: Structure: Normal. Stenosis: No. Regurgitation: No. Pulmonary Artery: MPA: Normal MPA with confluent branch pulmonary arteries. Aorta: ?? aortic arch: Unobstructed aortic arch. Arch sidedness: ??Left aortic arch. PDA: ??Normal ductus arteriosus. ??Shunt: ??Right to left ?? Effusions: ??Pericardial: ??None. ??Pleural: ??None. Ascites: ??None. Dopplers: Umbilical Artery: ??Normal. ?Umbilical Vein: Normal. Ductus Venosus: Normal. Rhythm: ? The rhythm was normal with 1:1 AV conduction. MEASUREMENTS: ?DOPPLER AV Forward Flow AV pkVel ?88.5 cm/s ?AV pkPG ?3 mmHg AV pkVel ?88.5 cm/s ? MV Forward Flow MV pkE ?30.9 cm/s ?MV E/A ? 0.8 ? MV pkA ?39.7 cm/s ? PV Forward Flow PV pkVel ?58.3 cm/s ?PV pkPG ?1 mmHg TV Forward Flow TV pkE ?36.2 cm/s ?TV E/A ? 0.9 ? TV pkA ?41.8 cm/s ? Aortic Valve ?? Heart rate ? 132 bpm ? HEART CIRC ?? Circumference ??108.3 mm ?Area ? 9.2 cm2 HRTC/THRC ?? Value ?0.5 ? THORAX CIRC ?? Circumference ??206.5 mm ?2D Aorta ?? Ao Rtd ?0.57 cm ? Pulmonic Valve ?? PV pamela ?0.65 cm ? Tricuspid Valve ?? TV pamela ?1.02 cm ?TV pamela ?1.02 cm ?? Mitral Valve ?? MV pamela ?0.88 cm ? Signed 01/08/2015 12:11 PM Helen Miguel MD Procedure Note Reading, No - 01/08/[address] [place] [address] Fax Echocardiogram Report Pat.Name: CHELSEA HAYS Pat.ID: [id number] St.Date: 01/08/2015 Exam Time: 11:34:00 AM Study Type: Echo Age: 4 1985,29Y Sex: FEMALE Sonogrphr: Khadijah Stringer RDCS Pat. Stat.:Outpatient Room: echo lab CPT - 4: 92387, 82571, 94019, [address]28[address] Procedures:Doppler Color Flow, 2D Complete, Doppler Complete, Doppler Umbilical artery Visit ID: [id number] SUMMARY: Study Comments: echocardiogram performed on a 28 week single fetus. NINA is 03-28-15. All cardiac structures are well visualized. The fetus is in vertex position. Impressions: The echocardiogram was within normal limits; however, small atrial and ventricular septal defects and persistent ductus arteriosus cannot be excluded as findings. Findings Anatomic Relationships: Visceral situs: Normal. Cardiac apex: Levocardia. Atrial situs: Solitus. AV alignment: Concordant. Ventricular looping: D-looped. VA connection: Concordant. Arterial relationships: Normal. Systemic Venous Return: Normal. Pulmonary Veins: At least two pulmonary veins seen draining to left atrium. RA Size: Normal. LA Size: Normal. Atrial Septum: Normal foramen ovale. Shunt: [id number]-dq-Fshd, Non-restrictive. Tricuspid Valve: Structure: Normal. Stenosis:No. Regurgitation: No. Mitral Valve: Structure: Normal. Stenosis: No. Regurgitation: No. Ventricles: RV size: Normal. RV wall thickness: Normal. RV function: Normal. LV size: Normal. LV wall thickness: Normal. LV function:Normal. IVS: Defect Type/Size: None./None. Shunt: None. Outflow Tracts: RVOT: Normal. LVOT: Normal. Grt Vessls: Pulmonary Valve: Structure: Normal. Stenosis: No. Regurgitation: No. Aortic Valve: Structure: Normal. Stenosis: No. Regurgitation: No. Pulmonary Artery: MPA: Normal MPA with confluent branch pulmonary arteries. Aorta: aortic arch: Unobstructed aortic arch. Arch sidedness: Left aortic arch. PDA: Normal ductus arteriosus. Shunt: Right to left Effusions: Pericardial: None. Pleural: None. Ascites: None. Dopplers: Umbilical Artery: Normal. Umbilical Vein: Normal. Ductus Venosus: Normal. Rhythm: The rhythm was normal with 1:1 AV conduction. MEASUREMENTS: DOPPLER AV Forward Flow AV pkVel 88.5 cm/s AV pkPG 3 mmHg AV pkVel 88.5 cm/s MV Forward Flow MV pkE 30.9 cm/s MV E/A 0.8 MV pkA 39.7 cm/s PV Forward Flow PV pkVel 58.3 cm/s PV pkPG 1 mmHg TV Forward Flow TV pkE 36.2 cm/s TV E/A 0.9 TV pkA 41.8 cm/s Aortic Valve Heart rate 132 bpm HEART CIRC Circumference 108.3 mm Area 9.2 cm2 HRTC/THRC Value 0.5 THORAX CIRC Circumference 206.5 mm 2D Aorta Ao Rtd 0.57 cm Pulmonic Valve PV pamela 0.65 cm Tricuspid Valve TV pamela 1.02 cm TV pamela 1.02 cm Mitral Valve MV pamela 0.88 cm Signed 01/08/2015 12:11 PM Helen Miguel MD Yamilka Leroy MD ECHO ORDERABLES Performing Organization Address City/State/[facility] Co de Phone Number [facility] [address] [place] [address] documented in this encounter Visit Diagnoses Diagnosis Prior with congenital cardiac defect, antepartum, second trimester (HCC) documented in this encounter Care Teams Traffic Engineering Director Relationship Specialty Start Date End Date Toni Melendez MD [address] [facility] [address] [place] [address] PCP - General Obstetrics and Gynecology 01/08/1512/30 documented as of this encounter
--- OUTSIDE RECORDS SUMMARY | 2024-11-28 06:01 | XMS_ITS | Encounter Summary ---
Author Organization [facility] Address [address] [place] [address] Care Team Providers Care Vegetable Loader Name Role Phone Kyle Turner PA-C Primary Care Provider [phone] Reason for Visit * Reason Onset Date Comments Employment Physical 01/15/2017 Encounter Details Date Type Department Care Team (Late st Contact Info) Description 01/15/2017 11:30 AM RESIDENTIAL PROGRAM WORKER Office Visit [facility] [address] [place] [phone] Pre-employment health screening examination (Primary Dx) Social History Tobacco Use Types Packs/Day Years Used Date Smoking Tobacco: Every Day Cigarettes 0.5 10 Sex and Gender Information Value Date Recorded Sex Assigned at Not on file Gender Identity Female 04/21/2018 2:50 PM CDT Sexual Orientation Not on file documented as of this encounter Progress Notes * Franck Snyder RT - 01/15/2017 2:16 PM CST Patient presents for [facility] pre-employment physical examination and drug screening. Please see scanned copy of paper form for full documentation. DENTIAL PROGRAM WORKER documented in this encounter Plan of Treatment Not on file documented as of this encounter Visit Diagnoses Diagnosis Pre-employment health screening examination- Primary Health examination of defined subpopulation documented in this encounter Care Teams Vegetable Loader Relationship Specialty Start Date End Date Kyle Turner PA-C [address] [place] [phone] PCP - General Physician Television Announcer 01/15/17 05/19/17 documented as of this encounter
--- OUTSIDE RECORDS SUMMARY | 2024-11-28 06:01 | XMS_ITS | Encounter Summary ---
Author Organization [facility] Address [address] [place] [address] Care Team Providers Care Clinical Social Worker Name Role Phone Holger Alves MD Primary Care Provider [phone] Reason for Referral * Cardiac - Closed Specialty Diagnoses / Procedures Referred By Contac t Referred To Contact Cardiology Diagnoses Prior with congenital cardiac defect, antepartum, second trimester (HCC) Procedures ECHO CONSULT - Yamilka Leroy MD [address] [place] [address] [address] Referral ID Status Reason Start Date Expiration Date Visits Re quested Visits Authorized [id number] Closed 11/13/2014 05/12/2015 1 1 HEAD CLEANER Encounter Details Date Type Department Care Team (Latest Contact Info) Description 11/13/2014 1:15 PM OVERHEAD CLEANER - 11/13/2014 11:59 PM OVERHEAD CLEANER Hospital Encounter [facility]aternal & Care [address] [place] [address] Yamilka Leroy MD [address] [place] [address] Discharge Disposition: Home or Self [...] Associated Diagnosis Comments SONOGRAM - COMPLETE Routine 11/13/2014 2:11 PM OVERHEAD CLEANER Encounter for routine screening for malformation using ultrasonics Prior with congenital cardiac defect, antepartum, second trimester (HCC) documented in this encounter Results * ECHO CONSULT - (01/08/2015 11:34 AM OVERHEAD CLEANER) 01/08/2015 11:3 4 AM OVERHEAD CLEANER Narrative [facility] - 01/08/2015 12:11 PM OVERHEAD CLEANER ?[address] [place] [address] ?[phone] Phone ?[phone] Fax ? Echocardiogram Report Pat.Name: ??CHELSEA HAYS ?Pat.ID: ?[id number] ? St.Date: ?? 01/08/2015 ? Exam Time: 11:34:00 AM ? Study Type: Echo ?Age: ??1985,29Y ? Sex: ? FEMALE ?Sonogrphr: Khadijah Stringer, RDCS ? Pat. Stat.:Outpatient ?Room: ?echo lab ? CPT - 4: ?? 21128, 608[address], 556[address], [address] Procedures:Doppler Color Flow, 2D Complete, Doppler Complete, Doppler Umbilical artery Visit ID: ??[id number] ? SUMMARY: Study Comments: ?? echocardiogram performed [...] Normal. Atrial Septum: ??Normal foramen ovale. ??Shunt: Evyik-qr-Dvbv, Non-restrictive. ? Tricuspid Valve: Structure: Normal. Stenosis:No. [...] Note Reading, No - 01/08/[address] [place] [address] Fax Echocardiogram Report Pat.Name: CHELSEA HAYS Pat.ID: [id number] St.Date: 01/08/2015 Exam Time: 11:34:00 AM Study Type: Echo Age: 4 1985,29Y Sex: FEMALE Sonogrphr: Khadijah Stringer RDCS Pat. Stat.:Outpatient Room: echo lab CPT - 4: 78675, 80140, 77348, [address]372 Procedures:Doppler Color Flow, 2D Complete, Doppler Complete, Doppler Umbilical artery Visit ID: [id number] SUMMARY: Study Comments: echocardiogram performed on a [...] Normal. Atrial Septum: Normal foramen ovale. Shunt: Punog-ip-Vawj, Non-restrictive. Tricuspid Valve: Structure: Normal. Stenosis:No. Regurgitation: [...] Miguel MD Yamilka Leroy MD ECHO ORDERABLES [facility] [address] [place] [address] * SONOGRAM - COMPLETE (11/13/2014 2:11 PM OVERHEAD CLEANER) Anatomical Region Laterality Modality Other 11/13/2014 2:11 PM OVERHEAD CLEANER Narrative 11/13/2014 3:15 PM OVERHEAD CLEANER ?[facility]aternal [facility] ? [facility] ?PHONE: ??FAX: ? Pat. Name: ?CHELSEA HAYS. No: ?[id number] Study Date: ?? 11/13/2014 ??2:11pm , Age: ? 1985, 29 LMP: ?Unknown GA by 1st: ?20w5d GA by US: ? 20w5d GA Selected: ??20w5d (From First S) NINA: ?03/28/2015 Referring MD: Edelmira Andrade MD Rough Rib Grader: ??Kenyetta Earl, [facility] CPT4: ? 52292 Hist/Ind: ? Anatomic survey ?Prior child with heart defect MEASUREMENTS & AGE ? GROWTH EVALUATION Measurement ??GA ? Range ? Srce %for GA Ratios ----- ---- ------- BPD ??4.9 cm 20w5d ([id number]) Hadl BPD 50% FL/BPD 0.71 HC ??18.3 cm 20w5d (28h7f-87r4c) Hadl HC ??50% FL/AC ??0.22 AC ??15.5 cm 20w5d (02q0s-18s5b) Hadl AC ??50% HC/AC ??1.18 (1.06 - 1.24) FL ?? 3.5 cm 20w6d (17s1y-88y1p) Hadl FL ??54% CI ? 0.76 (0.70 - 0.86) HL ?? 3.2 cm 20w4d (84y3b-80x0r) Ted HL ??47% GA for sonogram 20w5d (60n6r-03e7l) ?? Weight Estimate: based on (HL,BPD,HC,AC,FL) Avg ? Weight: 376 gm (321-430) Hadlock ? : 0lbs, 13oz ? Normal: 380 gm (284-475) Hadlock ? Wt% ? 48% for 20w5d Heart Rate: 141 bpm Amniotic Fluid Index: 02.6cm (Deepest Pocket) CLINICAL SUMMARY Study Number: 2 A single fetus is identified cephalic presentation. The amniotic fluid volume is within normal limits. ??The placenta is posterior. IMPRESSION: ?? 1) Brasher gestation, 20w5d 2) Biometry is consistent with the previously established NINA of 03/28/15 3) No structural abnormalities were detected on detailed anatomic survey 4) Imaging of the heart, cord insert, and hands was suboptimal due to positioning NOTE: The patient was advised that ultrasound does not allow detection of all structural or chromosomal abnormalities. ?? RECOMMEND: ?? 1) Follow-up in 4 weeks to complete the anatomic survey 2) Schedule echo at [facility] around 28 weeks (order submitted) Thank you for allowing us the opportunity to care for your patient. 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
--- OUTSIDE RECORDS SUMMARY | 2024-11-28 06:01 | XMS_ITS | Encounter Summary ---
Author Organization [facility] Address [address] [place] [address] Care Team Providers Care Agricultural Equipment Design Engineer Name Role Phone Kyle Turner PA-C Primary Care Provider [phone] Reason for Visit * Reason Comments Ultrasound Encounter Details Date Type Department Care Team (Latest Contact Info) Description 03/31/2017 1:04 PM CDT - 03/31/2017 11:59 PM CDT Hospital Encounter [facility] Maternal & Care [address] [place], [place] [id number] Bear Jimenez MD [address] [place] [id number] Discharge Disposition: Home or Self Care Social [...] Associated Diagnosis Comments SONOGRAM - COMPLETE Routine 03/31/2017 2 :53 PM CDT Prior with congenital cardiac defect, antepartum, second trimester (HCC) Encounter for anatomic survey (HCC) documented in this encounter Results * SONOGRAM - COMPLETE (04/28/2017 11:44 AM CDT) Anatomical Region Laterality Modality Other 04/28/2017 11:4 4 AM CDT Narrative 04/28/2017 12:48 PM CDT ? [facility] Maternal Medicine ? Maternal & Care Center ?PHONE: ??FAX: ? Pat. Name: ?CHELSEA HAYS Pat. No: ?[id number] Study Date: ?? 04/28/2017 ??11:44am , Age: ? 1985, 32 Pregnancies: ?? 5, Para 4 Height: ? 68 in Weight: ? 195 lb LMP: ?Unknown GA by 1st: ?24w3d GA by US: ? 24w1d GA Selected: ??24w3d (From First U) NINA: ?08/15/2017 Referring MD: Toni Melendez MD Online Education Manager: ??Angelina Moraes RDMS BMI: ?29.65 Hist/Ind: ? 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 GROWTH EVALUATION Measurement ??GA ? Range ? Srce %for GA Ratios ----- ---- ------- BPD ??5.7 cm 23w4d (21g0g-02q4c) Hadl BPD 27% FL/BPD 0.75 (0.71 - 0.87) HC ??21.5 cm 23w4d (20a1b-73s6b) Hadl HC ??26% FL/AC ??0.21 (0.20 - 0.24) AC ??20.9 cm 25w3d (56x8o-06e1a) Hadl AC ??72% HC/AC ??1.03 (1.02 - 1.21) FL ?? 4.3 cm 24w0d (88j9u-67n5g) Hadl FL ??43% CI ? 0.75 (0.70 - 0.86) GA for sonogram 24w1d (48i9j-11f8q) ?? Weight Estimate: based on (BPD,HC,AC,FL) Avg ?Weight: 723 gm (617-828) Hadlock ? : 1lbs, 9oz ? Normal: 715 gm (594-836) Hadlock ? Wt% ? 52% for 24w3d Heart Rate: 136 bpm CLINICAL SUMMARY Study Number: 3 A single fetus is identified in cephalic presentation. ??The measurements today are consistent with appropriate growth compared to previous study. ??The NINA selected is based on a prior ultrasound examination (confirmed). ??The amniotic fluid volume is within normal limits. ??The placenta is posterior. ??No major malformations are seen. ??The patient was advised that ultrasound does not allow detection of all structural or chromosomal abnormalities. IMPRESSION: Single, live, IUP 24w3d No anomalies identified Normal fluid assessment Appropriate interval growth RECOMMEND: ?? Follow up ultrasound as clinically indicated. echocardiogram is scheduled at [facility] in the near future Thank you for allowing us the opportunity to care for your patient. Maxim Mayer MD <Electronic Signature> ??04/28/2017 12:47pm Bear Jimenez MD [facility] ORDERABLES * SONOGRAM - COMPLETE (03/31/2017 2:53 PM CDT) Anatomical Region Laterality Modality Other 03/31/2017 2:53 PM CDT Narrative 03/31/2017 6:19 PM CDT ? [facility] Maternal Medicine ? Maternal & Care Center ?PHONE: ??FAX: ? Pat. Name: ?CHELSEA HAYS. No: ?[id number] Study Date: ?? 03/31/2017 ??2:53pm , Age: ? 1985, 31 Pregnancies: ?? 5, Para 4 Height: ? 68 in Weight: ? 195 lb LMP: ?Unknown GA by [facility]: ?20w3d GA by US: ? 20w1d GA Selected: ??20w3d (From First U) NINA: ?08/15/2017 Referring MD: Toni Melendez MD Online Education Manager: ??Angelina Moraes RDMS BMI: ?29.65 Hist/Ind: ? 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 Anatomy Screen MEASUREMENTS & AGE ? GROWTH EVALUATION Measurement ??GA ? Range ? Srce %for GA Ratios ----- ---- ------- BPD ??4.7 cm 20w2d (20r5p-97q4a) Hadl BPD 47% FL/BPD 0.66 HC ??16.9 cm 19w4d (19b8f-24q3b) Hadl HC ??25% FL/AC ??0.20 AC ??16.0 cm 21w0d (37i4s-87w5d) Hadl AC ??64% HC/AC ??1.06 (1.06 - 1.24) FL ?? 3.1 cm 19w5d (63d1u-81f1w) Hadl FL ??32% CI ? 0.82 (0.70 - 0.86) HL ?? 3.2 cm 20w5d (80p3o-45q9e) Ted HL ??55% GA for sonogram 20w1d (67e5w-76u0e) ?? Weight Estimate: based on (BPD,HC,AC,FL) Avg ?Weight: 347 gm (297-398) Hadlock ? : 0lbs, 12oz ? Normal: 358 gm (297-418) Hadlock ? Wt% ? 43% for 20w3d Cervical Length: ??4.4 cm Heart Rate: 142 bpm CLINICAL SUMMARY Study Number: 2 A single fetus is identified in cephalic presentation. ??The measurements today are consistent with appropriate growth. ?? The NINA selected is based on a prior ultrasound(confirmed). ??The estimated weight is at the 43%. ??The amniotic fluid volume is within normal limits. ??The placenta is fundal. ?? The patient was advised that ultrasound does not allow detection of all structural or chromosomal abnormalities. TRANSVAGINAL ULTRASOUND: ?? The transvaginal cervical length measures 4.4cm with no funneling identified. ??No change is seen with fundal pressure. IMPRESSION: Single, live vertex IUP at 20w3d Normal amniotic fluid volume Appropriate growth AGA ?? status Placental location: Fundal No major malformations are seen today within the limitations of ultrasound The heart views and spine were not well visualized due to position. ?? Incomplete anatomy survey RECOMMEND: Follow up ultrasound in 4 weeks to complete anatomy and growth,. Thank you for allowing us the opportunity to care for your patient. Bear Jimenez MD <Electronic Signature> ??03/31/2017 06:20pm Julio Cesar Young MD [facility] ORDERABLES documented in this encounter Visit Diagnoses Diagnosis Encounter for ultrasound to check growth (HCC)- Primary Prior with congenital cardiac defect, antepartum, second trimester (HCC) Encounter for anatomic survey (HCC) Encounter for anatomic survey Prior with congenital cardiac defect, antepartum, second trimester (HCC)- Primary Encounter for ultrasound to check growth (HCC) Encounter for nuchal translucency testing (HCC) Other specified screening documented in this encounter Care Teams Agricultural Equipment Design Engineer Relationship Specialty Start Date End Date Kyle Turner PA-C [address] [place] [id number] PCP - General Physician Plate Conditioner 01/15/17 05/19/17 documented as of this encounter
--- OUTSIDE RECORDS SUMMARY | 2024-11-28 06:01 | XMS_ITS | Clinical Summary ---
Author Organization [facility] Address [address] [place] [address]. [place], [place] [id number] [place] [address] Care Team Providers Care Line Out Man Name Role Phone Unavailable Primary Care Provider Unavailabl e Social History Tobacco Use Types Packs/Day Years Used Date Smoking Tobacco: Never Assessed Comments Unknown Sex and Gender Information Value Date Recorded Sex Assigned at Not on file Legal Sex Female 4:30 PM CDT Gender Identity Not on file Sexual Orientation Not on file Last Filed Vital Signs Vital Sign Reading Time Taken Comments Blood Pressure 110/68 02/09/2017 12:01 PM CDT Pulse 80 02/09/2017 12:01 PM CDT Temperature - - Respiratory Rate - - Oxygen Saturation - - Inhaled Oxygen Concentration - - Weight - - Height - - Body Mass Index - - Plan of Treatment Health Maintenance Due Date Last Done Comments Cervical Cancer Screening Pa p Smear (Age 30 to 64) Every 3 Years 1984 Annual Physical 1987 Hepatitis C 2002 DTaP, Tdap and Td Vaccines ( 1 - Tdap) 2003 Hepatitis B Vaccines (1 of 3 - 19+ 3-dose series) 2003 Cervical Cancer Screening Pa p with HPV Testing (Age 30 to 64) Every 5 Years 2014 Cervical Cancer Screening with HPV 2014 Mammogram Screening 2024 COVID-19 Vaccine ( - 2023-2 5 season) 2024 Influenza Adult (#1) 2024 HPV Vaccines Aged Out No longer eligi ble based on patient's age to complete this topic Meningococcal Vaccine Aged Out No stepan isaac eligible based on patient's age to complete this topic Pneumococcal Vaccine: Pediat rics (0 to 5 Years) and At-Risk Patients (6 to 64 Years) Aged Out No longer eligible b ased on patient's age to complete this topic RSV Immunizations Under 20 Months Aged Out No longer eligible based on patient's age to complete this topic
--- OUTSIDE RECORDS SUMMARY | 2024-11-28 06:01 | XMS_ITS | Referral Summary ---
Author Organization [facility] Address [address] [facility] [place] [address] Care Team Providers Care Utilization Review Rn Name Role Phone Toni Melendez MD Primary Care Provider [phone] Source Comments [facility],non-owned Affiliates and Associated Physician Practices is amultiple site organization consisting of ambulatory clinics and hospital sitesin [place], [place], [place] and [place]. This disclosure is being madepursuant to the Care Everywhere program and may not contain all information available regarding this patient. Last updated 18.[facility] Allergies No known active allergies Active Problems Problem Noted Date Diagnosed Date Encounter for routine screen ing for malformation using ultrasonics 12/13/2014 Encounter for nuchal translucency testing 2013 Prior with congenital cardiac defect, antepartum 09/04/2014 Encounter for supervision of other normal pregna ncy 09/04/2014 Overview (10/06/2015): Social History Tobacco Use Types Packs/Day Years Used Date Smoking Tobacco: Every Day Cigarettes 0.5 10 Tobacco Cessation:Ready to Q uit: No Sex and Gender Information Value Date Recorded Sex Assigned at Not on file Gender Identity Female 04/21/2018 2:50 PM CDT Sexual Orientation Not on file Plan of Treatment Not on file Care Teams Utilization Review Rn Relationship Specialty Start Date End Date Toni Melendez MD [address] [place] [address] PCP - General Obstetrics and Gynecology 05/20/17
--- OUTSIDE RECORDS SUMMARY | 2024-11-28 06:01 | XMS_ITS | Encounter Summary ---
Author Organization [facility] Address [address] [facility] [place] [address] Care Team Providers Care Service Plumber Name Role Phone Holger Alves MD Primary Care Provider [phone] Reason for Visit * Reason Onset Date Comments Results 10/23/2014 Scheduling 10/23/2014 Encounter Details Date Type Department Care Team ([facility] [place] Contact Info) Description 10/23/2014 Telephone [facility] Maternal & Care [address] [place] [address] Kip Smallwood RN Results; Scheduling Social History Tobacco Use Types Packs/Day Years Used Date Smoking Tobacco: Every Day Cigarettes 0.5 10 Comments Yes Sex and Gender Information Value Date Recorded Sex Assigned at Not on file Gender Identity Female 04/21/2018 2:50 PM CDT Sexual Orientation Not on file documented as of this encounter Miscellaneous Notes * Telephone Encounter - Kip Smallwood RN - 10/23/2014 3:51 PM CST Pt notified of good results on Panorama screen and notified of gender of fetus. Pt scheduled for anatomy scan. LE CONSULTANT documented in this encounter Plan of Treatment Not on file documented as of this encounter Visit Diagnoses Not on filedocumented in this encounter Care Teams Service Plumber Relationship Specialty Start Date End Date Holger Alves MD [address] [place], [place] [address] [place] [address] PCP - General Internal Medicine 05/30/13 01/07/15 documented as of this encounter
--- OUTSIDE RECORDS SUMMARY | 2024-11-28 06:01 | XMS_ITS | Encounter Summary ---
Author Organization [facility] Address [address] [place] [address] Care Team Providers Care Summer Sessions Director Name Role Phone Kyle Turner PA-C Primary Care Provider [phone] Reason for Visit * Reason Comments Ultrasound Encounter Details Date Type Department Care Team (Latest Contact Info) Description 02/24/2017 2:08 PM CDT - 02/24/2017 11:59 PM CDT Hospital Encounter [facility] Maternal & Care [address] [place], [place] [id number] Julio Cesar Young MD [address] [id number] Discharge Disposition: Home or Self Care Social [...] Associated Diagnosis Comments SONOGRAM - COMPLETE Routine 02/24/2017 3 :22 PM CDT Prior with congenital cardiac defect, antepartum, second trimester (HCC) documented in this encounter Results * SONOGRAM - COMPLETE (03/31/2017 2:53 PM CDT) Anatomical Region Laterality Modality Other 03/31/2017 2:53 PM CDT Narrative 03/31/2017 6:19 PM CDT ? [facility] ? M[facility] & Care Center ?PHONE: ??FAX: ? Pat. Name: ?CHELSEA DANIEL Pat. No: ?[id number] Study Date: ?? 03/31/2017 ??2:53pm , Age: ? 1985, 31 Pregnancies: ?? 5, Para 4 Height: ? 68 in Weight: ? 195 lb LMP: ?Unknown GA by 1st: ?20w3d GA by US: ? 20w1d GA Selected: ??20w3d (From First U) NINA: ?08/15/2017 Referring MD: Toni Melendez MD Transverse Abdominal Muscle Nurse: ??Angelina Moraes RDMS BMI: ?29.65 Hist/Ind: ? 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 Anatomy Screen MEASUREMENTS & AGE ? GROWTH EVALUATION Measurement ??GA ? Range ? Srce %for GA Ratios ----- ---- ------- BPD ??4.7 cm 20w2d (14p6i-50f6d) Hadl BPD 47% FL/BPD 0.66 HC ??16.9 cm 19w4d (97l0z-72m6v) Hadl HC ??25% FL/AC ??0.20 AC ??16.0 cm 21w0d (38l8g-39v8s) Hadl AC ??64% HC/AC ??1.06 (1.06 - 1.24) FL ?? 3.1 cm 19w5d (62x2j-44h1m) Hadl FL ??32% CI ? 0.82 (0.70 - 0.86) HL ?? 3.2 cm 20w5d (31c9d-61z4i) Ted HL ??55% GA for sonogram 20w1d (17l9e-35q1y) ?? Weight Estimate: based on (BPD,HC,AC,FL) Avg [...] Signature> ??03/31/2017 06:20pm Julio Cesar Young MD [facility] ORDERABLES * SONOGRAM - COMPLETE (02/24/2017 3:22 PM CDT) Anatomical Region Laterality Modality Other 02/24/2017 3:22 PM CDT Narrative 02/24/2017 3:21 PM CDT ? [facility] ? Maternal & Care Center ?PHONE: ??FAX: ? Pat. Name: ?CHELSEA DANIEL. No: ?[id number] Study Date: ?? 02/24/2017 ??3:22pm , Age: ? 1985, 31 Pregnancies: ?? 5, Para 4 Height: ? 68 in Weight: ? 195 lb LMP: ?Unknown GA by US: ? 15w3d GA Selected: ??15w3d (Sonographic) NINA: ?08/15/2017 Referring MD: Toni Melendez MD Transverse Abdominal Muscle Nurse: ??Angelina Moraes RDMS Hist/Ind: ? 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 GROWTH EVALUATION Measurement ??GA ? Range ? Srce %for GA Ratios ----- ---- ------- BPD ??2.9 cm 15w2d (66l5h-56i0w) Hadl BPD 45% FL/BPD 0.60 HC ??10.9 cm 15w2d (41t9k-37p1a) Hadl HC ??45% FL/AC ??0.18 AC ?? 9.8 cm 15w6d (05n4j-43d6g) Hadl AC ??63% HC/AC ??1.11 (1.10 - 1.29) FL ?? 1.8 cm 15w1d (10i4j-44m4i) Hadl FL ??43% CI ? 0.78 (0.70 - 0.86) HL ?? 1.7 cm 14w5d (63d0q-23d1l) Ted HL ??39% GA for sonogram 15w3d (33y7v-60d9e) ?? Weight Estimate: based on (BPD,HC,AC,FL) Avg ?Weight: 126 gm (108-145) Hadlock ? : 0lbs, 4oz ? Normal: 128 gm (106-150) Hadlock ? Wt% ? 46% for 15w3d Heart Rate: 147 bpm CLINICAL SUMMARY Study Number: 1 A single fetus is identified in breech presentation. ??The measurements today are consistent with appropriate growth compared to previous study. ??The NINA selected is based on a prior ultrasound examination (confirmed). ??The amniotic fluid volume is within normal limits. ??The placenta is fundal. ??No major malformations are seen. ??The patient was advised that ultrasound does not allow detection of all structural or chromosomal abnormalities. IMPRESSION: Single live IUP at 15w3d Appropriate growth Normal AFV No major malformations are seen within the limitations of ultrasound and early gestational age RECOMMEND: ?? Follow up ultrasound in 5 weeks for detailed anatomic survey and cervical screening Thank you for allowing us the opportunity to care for your patient Julio Cesar Young MD <Electronic Signature> ??02/24/2017 03:21pm Toni Melendez MD [facility] ORDERABLES documented in this encounter Visit Diagnoses Diagnosis Encounter for anatomic survey (HCC)- Primary Encounter for anatomic survey Prior with congenital cardiac defect, antepartum, second trimester (HCC) Supervision of other high risk pregnancies, second trimester (HCC) Encounter for ultrasound to check growth (HCC)- Primary Prior with congenital cardiac defect, antepartum, second trimester (HCC) Encounter for anatomic survey (HCC) Encounter for anatomic survey documented in this encounter Care Teams Summer Sessions Director Relationship Specialty Start Date End Date Kyle Turner PA-C [facility] [place] [address] PCP - General Physician Electrolysis Needle Operator 01/15/17 05/19/17 documented as of this encounter
--- OUTSIDE RECORDS SUMMARY | 2024-11-28 06:01 | XMS_ITS | Encounter Summary ---
Author Organization [facility] Address [address] [place] [address] Care Team Providers Care Pet Supplies Salesperson Name Role Phone Yue Hixton Thompson CLARKE Primary Care Provider [phone] Encounter Details Date Type Department Care Team (Latest Contact Info) Description 03/05/2017 9:33 AM CDT - 03/05/2017 11:59 PM CDT Hospital Encounter [facility] Maternal & Care [address] [place] [address] Yamilka Leroy MD [facility] [address] [phone] Discharge Disposition: Home or Self Care Social History Tobacco Use Types Packs/Day Years Used Date Smoking Tobacco: Every Day Cigarettes 0.5 10 Comments Yes Sex and Gender Information Value Date Recorded Sex Assigned at Not on file Gender Identity Female 04/21/2018 2:50 PM CDT Sexual Orientation Not on file documented as of this encounter Progress Notes * Angelina Louis APRN-CNP - 03/05/2017 11:08 AM CDT Pt. Presents for NIPT r/t abnormal quad results. Pt. Offered and declined genetic counseling and amnio at this time. NIPT drawn Angelina Louis RN 03/05/2017 11:09 AM documented in this encounter Plan of Treatment Not on file documented as of this encounter Visit Diagnoses Not on filedocumented in this encounter Care Teams Pet Supplies Salesperson Relationship Specialty Start Date End Date Kyle Turner PA-C [address] [place] [phone] PCP - General Physician Senior Electrical Estimator 01/15/17 05/19/17 documented as of this encounter
--- OUTSIDE RECORDS SUMMARY | 2024-11-28 06:01 | XMS_ITS | Patient Health Summary ---
Author Organization [facility] [employer] Address [address] [place] [address] Care Team Providers Care Senior Clinical Sas Programmer Name Role Phone Toni Melendez MD Primary Care Provider [phone] Note from [facility],non-owned Affiliates and Associated Physician Practices is amultiple site organization consisting of ambulatory clinics and hospital sitesin [place], [place], [place] and [place]. This disclosure is being madepursuant to the Care Everywhere program and may not contain all information available regarding this patient. Last updated 18.[facility] [employer] Allergies No known active allergies Active Problems Problem Noted Date Diagnosed Date Encounter for routine screen ing for malformation using ultrasonics 12/13/2014 Encounter for nuchal translucency testing 2013 Prior with congenital cardiac defect, antepartum 09/04/2014 Encounter for supervision of other normal pregna ncy 09/04/2014 Social History Tobacco Use Types Packs/Day Years Used Date Smoking Tobacco: Every Day Cigarettes 0.5 10 Tobacco Cessation:Ready to Q uit: No Sex and Gender Information Value Date Recorded Sex Assigned at Not on file Gender Identity Female 04/21/2018 2:50 PM CDT Sexual Orientation Not on file Procedures * ECHO CONSULT - (Performed 05/10/2018) Performed for Prior with congenital cardiac defect, antepartum (HCC) * ECHO CONSULT - (Performed 05/20/2017) Performed for Prior with congenital cardiac defect, antepartum, second trimester (HCC) * SONOGRAM - COMPLETE(Performed 04/28/2017) Performed for Encounter for ultrasound to check growth (HCC) * SONOGRAM - COMPLETE(Performed 03/31/2017) Performed for Prior with congenital cardiac defect, antepartum, second trimester ([facility]), Encounter for anatomic survey ([facility]) * SONOGRAM - COMPLETE(Performed 02/24/2017) Performed for Prior with congenital cardiac defect, antepartum, second trimester ([facility]) * CARDIAC ECHOCARDIOGRAM COMPLETE ORDER(Performed 01/09/2015) * ECHO CONSULT - (Performed 01/08/2015) Performed for Prior with congenital cardiac defect, antepartum, second trimester ([facility]) * SONOGRAM - COMPLETE(Performed 12/11/2014) Performed for Encounter for routine screening for malformation using ultrasonics * SONOGRAM - COMPLETE(Performed 11/13/2014) Performed for Encounter for routine screening for malformation using ultrasonics, Prior with congenital cardiac defect, antepartum, second trimester ([facility]) * FIRST TRI NUCHAL TRANSLUCENCY W:SEQ SCREEN(Performed 08/31/2014) Performed for Encounter for nuchal translucency testing ([facility]) * CULTURE URINE(Performed 04/20/2014) * ECHO CONSULT - (Performed 06/14/2013) Performed for abnormality in ([facility]) * SONOGRAM - COMPLETE(Performed 06/02/2013) Performed for abnormality in ([facility]) Results * ECHO CONSULT - (05/10/2018 2:48 PM CDT) Only the most recent of4 resultswithin the time period is included. 05/10/2018 2:48 PM CDT Narrative Procedure Note Blanca Mendoza MD - 05/10/2018 [address] [place] [address] Fax Echocardiogram Report Pat.Name: FREDY CHELSEA Aristides Pat.ID: [id number] St.Date: 05/10/2018 Exam Time: 2:48:00 PM Study Type: Echo Age: 4 1985,33Y Sex: FEMALE Sonogrphr: JENNIFER Green Pat. Stat.:Outpatient Reason for Study:Family History of Congenital Heart Disease Procedures: 2D Complete, Doppler Complete, Color Flow Visit ID: [id number] SUMMARY: Study Data: GA: 26/2 weeks. NINA: 08/14/2018 . : 6. Para: 5. Type: [place]. Lie: Breech. Impression: The echocardiogram was within [...] Mendoza MD Blanca Mendoza MD ECHO ORDERABLES Performing Organization Address City/State/[facility] Co de Phone Number [facility] [address] [place] [address] * SONOGRAM - COMPLETE (04/28/2017 11:44 AM CDT) Only the most recent of6 resultswithin the time period is included. Anatomical Region Laterality Modality Other 04/28/2017 11:4 4 AM CDT Narrative 04/28/2017 12:48 PM CDT ? [facility] ? [facility] ?PHONE: ??FAX: ? Pat. Name: ?CHELSEA HAYS. No: ?[id number] Study Date: ?? 04/28/2017 ??11:44am , Age: ? 1985, 32 Pregnancies: ?? 5, Para 4 Height: ? 68 in Weight: ? 195 lb LMP: ?Unknown GA by [facility]: ?24w3d GA by US: ? 24w1d GA Selected: ??24w3d (From First U) NINA: ?08/15/2017 Referring MD: Toni Melendez MD Application Development Liaison: ??Angelina Moraes RDMS BMI: ?29.65 Hist/Ind: ? 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 GROWTH EVALUATION Measurement ??GA ? Range ? Srce %for GA Ratios ----- ---- ------- BPD ??5.7 cm 23w4d (69b3f-58t5e) Hadl BPD 27% FL/BPD 0.75 (0.71 - 0.87) HC ??21.5 cm 23w4d (92p7n-32e9o) Hadl HC ??26% FL/AC ??0.21 (0.20 - 0.24) AC ??20.9 cm 25w3d (35f5c-29y9t) Hadl AC ??72% HC/AC ??1.03 (1.02 - 1.21) FL ?? 4.3 cm 24w0d (02t5n-94b3g) Hadl FL ??43% CI ? 0.75 (0.70 - 0.86) GA for sonogram 24w1d (29p8b-43p0h) ?? Weight Estimate: based on (BPD,HC,AC,FL) Avg [...] as clinically indicated. echocardiogram is scheduled at [facility] in the near future Thank you for allowing us the opportunity to care for your patient. Maxim Mayer MD <Electronic Signature> ??04/28/2017 12:47pm Bear Jimenez MD [facility] ORDERABLES * CARDIAC ECHOCARDIOGRAM COMPLETE ORDER (01/09/2015 10:17 PM HAND PLEATER) Narrative 01/09/2015 10:17 PM HAND PLEATER Ordered by an unspecified provider. Scanned Document ECHO ORDERABLES * FIRST TRI NUCHAL TRANSLUCENCY W:SEQ SCREEN (08/31/2014 3:34 PM CDT) Anatomical Region Laterality Modality Other 08/31/2014 3:34 PM CDT Narrative 08/31/2014 4:25 PM CDT ?[facility] ? M[facility] Care Center ?PHONE: ??FAX: ? Pat. Name: ?CHELSEA HAYS. No: ?[id number] Study Date: ?? 08/31/2014 ??3:34pm , Age: ? 1985, 29 LMP: ?Unknown GA by US: ? 10w4d GA Selected: ??10w1d (From Known E) NINA: ?03/28/2015 Referring MD: Edelmira Andrade MD Application Development Liaison: ??Magda Roldan RDMS Hist/Ind: ? Previous Child with a Heart Defect ?NIPT MEASUREMENTS & AGE ? GROWTH EVALUATION Measurement ??GA ? Range ? Srce %for GA Ratios ----- ---- ------- CRL ??3.7 cm 10w4d (40l6l-26i0h) Hadl CRL 72% GA for sonogram 10w4d (03u1v-27a9g) based on (CRL) Avg ? Heart Rate: [...] <Electronic Signature> ??08/31/2014 04:26pm Edelmira Andrade MD [facility] ORDERABLES * CULTURE URINE (04/20/2014 6:48 PM CDT) Culture Urine STAPHYLOCOCCUS SAPROPHYTICUS [facility] Comment:1,000,000 CFU/ML Sta phylococcus Saprophyticus Urine specimen (specimen) URINE SPECIMEN OBTAINED BY CLEAN CATCH PROCEDURE / Unknown 04/20/2014 6:48 PM CDT 04/21/2014 12:02 AM CDT Narrative [facility] - 04/23/2014 10:52 AM CDT DevanSpecimen#[id number] Devan Loc/Rm/Bed: EXPCARE C// CLN CATCH U Historical Provider LAB - MICROBIOLOG Y ORDERABLES [address] [phone] Care Teams Senior Clinical Sas Programmer Relationship Specialty Start Date End Date Toni Melendez MD [address] [place] [address] PCP - General Obstetrics and Gynecology 05/20/17
--- OUTSIDE RECORDS SUMMARY | 2024-11-28 06:01 | XMS_ITS | Encounter Summary ---
Author Organization [facility] Address [address] [place] [address] Care Team Providers Care Slate Splitter Name Role Phone Kyle Turner PA-C Primary Care Provider [phone] Reason for Referral * Cardiac (Routine) - Closed Specialty Diagnoses / Procedures Referred By Jonah delacruz Referred To Contact Cardiology Diagnoses Prior with congenital cardiac defect, antepartum, second trimester (HCC) Procedures ECHO CONSULT - Maxim Mayer MD [address] [place] [address] [address] Referral ID Status Reason Start Date Expiration Date Visits Re quested Visits Authorized [id number] Closed 04/28/2017 10/25/2017 1 1 Reason for Visit * Reason Comments Ultrasound Encounter Details Date Type Department Care Team (Latest Contact Info) Description 04/28/2017 11:43 AM CDT - 04/28/2017 11:59 PM CDT Hospital Encounter [facility] Women's Health Maternal & Care [address] [place] [address] Maxim Mayer MD [address] [place] [address] Discharge Disposition: Home or Self [...] Associated Diagnosis Comments SONOGRAM - COMPLETE Routine 04/28/2017 1 1:44 AM CDT Encounter for ultrasound to check growth (HCC) documented in this encounter Results * ECHO CONSULT - (05/20/2017 11:08 AM CDT) 05/20/2017 11:0 8 AM CDT Narrative Procedure Note Damaris Yo MD - 05/20/2017 [address] [place] [address] Fax Echocardiogram Report Pat.Name: CHELSEA HAYS Pat.ID: [id number] St.Date: 05/20/2017 Exam Time: 11:08:00 AM Study Type: Echo Age: 4 1985,32Y Sex: FEMALE Sonogrphr: Suad Benítez RDCS Pat. Stat.:Outpatient CPT - 4: 02150, [id number], [id number], [id number] Reason for Study:Previous child with CHD History / Clinical:Previous child with CHD 08/18/17 210 Procedures: 2D Complete, Doppler Complete, Color Flow Visit ID: [id number] SUMMARY: Study Data: GA: 27w1d weeks. NINA: [...] Yo MD Maxim Mayer MD ECHO ORDERABLES [facility] [address] [place] [address] * SONOGRAM - COMPLETE (04/28/2017 11:44 AM CDT) Anatomical Region Laterality Modality Other 04/28/2017 11:4 4 AM CDT Narrative 04/28/2017 12:48 PM CDT ? [facility] Maternal Medicine ? Maternal & Care Center ?PHONE: ??FAX: ? Pat. Name: ?CHELSEA HAYS Pat. No: ?[id number] Study Date: ?? 04/28/2017 ??11:44am , Age: ? 1985, 32 Pregnancies: ?? 5, Para 4 Height: ? 68 in Weight: ? 195 lb LMP: ?Unknown GA by 1st: ?24w3d GA by US: ? 24w1d GA Selected: ??24w3d (From First U) NINA: ?08/15/2017 Referring MD: Toni Melendez MD Beauty Director: ??Angelina Moraes RDMS BMI: ?29.65 Hist/Ind: ? 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 GROWTH EVALUATION Measurement ??GA ? Range ? Srce %for GA Ratios ----- ---- ------- BPD ??5.7 cm 23w4d (64i8w-09f1a) Hadl BPD 27% FL/BPD 0.75 (0.71 - 0.87) HC ??21.5 cm 23w4d (48q2g-62e8m) Hadl HC ??26% FL/AC ??0.21 (0.20 - 0.24) AC ??20.9 cm 25w3d (72g1t-89c1b) Hadl AC ??72% HC/AC ??1.03 (1.02 - 1.21) FL ?? 4.3 cm 24w0d (45y4b-77l7o) Hadl FL ??43% CI ? 0.75 (0.70 - 0.86) GA for sonogram 24w1d (09x1k-47s7o) ?? Weight Estimate: based on (BPD,HC,AC,FL) Avg [...] as clinically indicated. echocardiogram is scheduled at [facility] in the near future Thank you for allowing us the opportunity to care for your patient. Maxim Mayer MD <Electronic Signature> ??04/28/2017 12:47pm Bear Tony MD [facility] ORDERABLES documented in this encounter Visit Diagnoses Diagnosis Prior with congenital cardiac defect, antepartum, second trimester (HCC)- Primary Encounter for ultrasound to check growth (HCC) Encounter for nuchal translucency testing (HCC) Other specified screening Prior with congenital cardiac defect, antepartum, second trimester (HCC) documented in this encounter Care Teams Slate Splitter Relationship Specialty Start Date End Date Kyle Turner PA-C [address] [place] [address] [phone] PCP - General Physician Head Men'S Golf Coach 01/15/17 05/19/17 documented as of this encounter
--- OUTSIDE RECORDS SUMMARY | 2024-11-28 06:01 | XMS_ITS | Encounter Summary ---
Author Organization [facility] Address [address] [place] [address] Care Team Providers Care Instructor Military Science Name Role Phone Holger Alves MD Primary Care Provider [phone] Reason for Referral * - Closed Specialty Diagnoses / Procedures Referred By Contac t Referred To Contact Cardiology Diagnoses abnormality in (HCC) Procedures ECHO CONSULT - Echo [id number] Moe MD [address] [employer] [address] [place] [address] Referral ID Status Reason Start Date Expiration Date Visits Re quested Visits Authorized [id number] Closed 06/14/2013 12/03/2013 1 1 Reason for Visit * - Closed Specialty Diagnoses / Procedures Referred By Contac t Referred To Contact Cardiology Diagnoses abnormality in (HCC) Procedures ECHO CONSULT - Echo [id number] Alvarado MD [address] [employer] [address] [place] [address] Referral ID Status Reason Start Date Expiration Date Visits Re quested Visits Authorized [id number] Closed 06/14/2013 12/03/2013 1 1 Encounter Details Date Type Department Care Team (Latest Contact Info) Description 06/14/2013 3:13 PM CDT - 06/14/2013 11:59 PM CDT Hospital [facility] [address] [place] [address]. [place] [address] Damaris Yo MD [facility] [place] [address] Discharge Disposition: Home or Self Care Social History Tobacco Use Types Packs/Day Years Used Date Smoking Tobacco: Every Day Cigarettes 0.5 10 Comments Yes Sex and Gender Information Value Date Recorded Sex Assigned at Not on file Gender Identity Female 04/21/2018 2:50 PM CDT Sexual Orientation Not on file documented as of this encounter Progress Notes * Damaris Yo MD - 06/14/2013 5:37 PM CDT Images from the original note were not included. Attending Physician: Damaris Yo MD Office 06/14/2013 5:38 PM Echocardiogram and Consultation Date: 06/14/2013 Institution:[facility] [place] Referring Physician: Maxim Mayer MD Dear Dr. Mayer and Dr. Altman: I had the pleasure of seeing your patient, Chelsea Hays , for echocardiographic evaluationand consultation on 06/14/2013. Indications for echocardiogram include a history of abnormal ductus venosus. The umbilical vein is dilated and the ductus venosus has an abnormal course. The following additional clinical information was available at the time of the evaluation: Maternal Age: 29 years old. Gestational Age: 32 weeks, 4 days. Estimated Date of Delivery: 08/05/13 History : G3,P2. Complications of the : possible anomaly Maternal Medical History: None Medications: vitamins Family History of Congenital Heart Disease: No Previous Ultrasound: abnormal Abnormal HeartTones: none detected A complete 2-D, pulse wave and color Doppler echocardiogram was performed. The quality of thestudy was technically adequate. 2-D Findings: Visceroatrial situs solitus with levocardia. There was atrioventricular and ventriculoarterial concordance. The right atrium and left atrium appeared normal size. There was a patent foramen ovale which bowed from right to left. The mitral valve appeared normal. The tricuspid valve appeared mildly thickened. The right and left ventricles were normal size for gestational age with normal wall thickness and normal systolic function. The ventricular septum appeared intact. The great vessels were normally related. The aortic and pulmonary valves were thin and mobile. The branch pulmonary arteries were confluent. A ductal arch was identified. The aortic arch appeared normal. No pericardial or pleural effusion. The ductus venosus was dilated and the umbilical vein leading to the ductus venosus is also dilated. Doppler Examination: There were normal mitral and tricuspid inflow patterns with a dominant A wave and smaller E wave. No mitral insufficiency. Mild tricuspid insufficiency. There was normal laminar flow across the aortic and pulmonary valves. There was normal xsmiq-nt-nbgs shunting across the ductus arteriosus in systole with a small amount in diastole. There was normal flow pattern in the transverse aortic arch. No arrhythmia was detected. Normal umbilical artery and umbilical vein flow profiles. Ductus venosus flow profile showed all antegrade flow in the ductus venosus. IMPRESSION: 1. 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 2. Mildly thickened tricupsid valve with mild tricuspid regurgitation. 3. Upper normal heart size. RECOMMENDATIONS: I reviewed the findings of today's echocardiogram with the mother and fatherof the baby. The dilatation of the ductus venosus may lead to persistence of the ductus venosus. This usually acts as a shunt which allows passage of blood to the caval system without the benefit of decontamination through the liver. In older patients and adults, this can lead to mental status changes. On review of the literature, babies generally are not symptomatic. However, if the ductus venosus persists postnatally, this can be closed by interventional cardiac catheterization, which I discussed with the family. In addition, there is mild thickening of the tricuspid valve and mild tricuspid regurgitation. This may reflect a mild abnormality of the tricuspid valve or could be normal variant. I do not think the baby should have significant hemodynamic issues in the period, however Iwould recommend an echocardiogram after for reevaluation. We can perform this as an outpatient here at [facility] once the baby is discharged. Delivery site does not need to be altered unless there are additional concerns from an OB standpoint. I would recommend a follow-up OB ultrasound through your office. If there is evidence of evolving hydrops or increasing heart size, we would be happy to reevaluate the fetus. Thank you again for allowing us to participate in the care of this patient. If you have any furtherquestions, please do not hesitate to contact me at . Sincerely, Damaris Yo MD In general, echocardiography has an excellent [...] or arrhythmias later in life such as Yvcag-Wmaeahpuo-Fwhth syndrome. Total time spent with the patient was 45 minutes with >50% time spent counseling regarding findings and limitations. documented in this encounter Plan of Treatment Not on file documented as of this encounter Procedures Procedure Name Priority Date/Time Associated Diagnosis Comments ECHO CONSULT - Routine 06/14/2013 3:42 PM CDT abnormality in (HCC) documented in this encounter Results * ECHO CONSULT - (06/14/2013 3:42 PM CDT) 06/14/2013 3:42 PM CDT Narrative [facility] - 06/16/2013 11:24 AM CDT [facility] , Echocardiogram 2D, Doppler, and Color Doppler Name: CHELSEA HAYS MR #: [id number] Study date: 06/14/2013 Age: : 1985 Gender: Female Ht: / Wt: / BSA: HR: BP: / age: 32 weeks NINA: 08/06/2013 Maternal age: 28 years ARMORED SERVICE TECHNICIAN: ??Damaris Yo MD PEDIATRIC ECHO HEAD OF MARKETING: ??JENNIFER Green History/ Indications: Dilated ductus venosus. Rule out CHD. Procedure: The study was performed in the [facility] [place]. Echocardiogram. The mother was G 3, P [...] 0.7 HR: 138.7 BPM Procedure Note 06/16/2013 [facility] , Echocardiogram 2D, Doppler, and Color Doppler Name: CHELSEA HAYS MR #: [id number] Study date: 06/14/2013 Age: : 1985 Gender: Female Ht: / Wt: / BSA: HR: BP: / age: 32 weeks NINA: 08/06/2013 Maternal age: 29 years ARMORED SERVICE TECHNICIAN: Damaris Yo MD PEDIATRIC ECHO HEAD OF MARKETING: JENNIFER Green History/ Indications: Dilated ductus venosus. Rule out CHD. Procedure: The study was performed in the [facility] [place]. Echocardiogram. The mother was G 3, P [...] E/A Ratio: 0.7 HR: 138.7 BPM Placido Bj Cortez MD ECHO ORDERABLES Performing Organization Address City/State/[facility] Co de Phone Number [facility] [address] [place] [address] documented in this encounter Visit Diagnoses Diagnosis abnormality in (HCC) Unspecified abnormality affecting management of mother, unspecified as to episode of care documented in this encounter Care Teams Instructor Military Science Relationship Specialty Start Date End Date Holger Alves MD [address] [place] [address] [address] [place] [address] PCP - General Internal Medicine 05/30/13 01/07/15 documented as of this encounter
--- OUTSIDE RECORDS SUMMARY | 2024-11-28 06:01 | XMS_ITS | Clinical Summary ---
Author Organization [facility] Address [address] [facility] [address] Care Team Providers Care Die Maker Trim Name Role Phone Toni Melendez MD Primary Care Provider [phone] Source Comments [facility],non-owned Affiliates and Associated Physician Practices is amultiple site organization consisting of ambulatory clinics and hospital sitesin [place], [place], [place] and [place]. This disclosure is being madepursuant to the Care Everywhere program and may not contain all information available regarding this patient. Last updated 18.[facility] Allergies No known active allergies Active Problems [...] Orientation Not on file Plan of Treatment Health Maintenance Due Date Last Done Comments LIPID TESTING 1985 MAMMOGRAM 1985 PAP SMEAR 1985 PNEUMOCOCCAL VACCINE (1 of 2 - PCV) 1990 HIV SCREENING 1999 HEPATITIS C SCREENING 04/20/2002 DTAP/TDAP/TD VACCINES (1 - Tdap) 2003 HEPATITIS B VACCINE (1 of 3 - 19+ 3-dose series) 2003 DEPRESSION SCREENING 11/29/2023 COVID-19 VACCINE (3 - 2023-2 5 season) 2024 2021, 12/31/2020 INFLUENZA VACCINE (#1) 2024 8, 08/10/2017 ZOSTER VACCINE (1 of 2) 2034 HIB VACCINE Aged Out No longer eligi ble based on patient's age to complete this topic HPV VACCINE Aged Out No longer eligi ble based on patient's age to complete this topic MENINGOCOCCAL VACCINE Aged Out No stepan isaac eligible based on patient's age to complete this topic Care Teams Die Maker Trim Relationship Specialty Start Date End Date Toni Melendez MD [address] [place] [address] PCP - General Obstetrics and Gynecology 05/20/17
--- OUTSIDE RECORDS SUMMARY | 2024-11-28 06:02 | XMS_ITS | Encounter Summary ---
Author Organization [facility] Address [address] [place] [address]. [place] [address] [place] [address] Care Team Providers Care Radio News Anchor Name Role Phone Unavailable Primary Care Provider Unavailabl e Encounter Details Date Type Department Care Team (Late st Contact Info) Description 03/18/2018 Abstract [facility] [address] [place] [address] [place] [address] [place] [address] [address] [place] [address] Social History Tobacco Use Types Packs/Day Years Used Date Smoking Tobacco: Never Assessed Comments Unknown Sex and Gender Information Value Date Recorded Sex Assigned at Not on file Legal Sex Female 4:30 PM CDT Gender Identity Not on file Sexual Orientation Not on file documented as of this encounter Plan of Treatment Not on file documented as of this encounter Visit Diagnoses Not on filedocumented in this encounter
--- OUTSIDE RECORDS SUMMARY | 2024-11-28 06:02 | XMS_ITS | Encounter Summary ---
Author Organization [facility] Address [address] [place] [address]. [place], [place] [address] [place] [address] Care Team Providers Care Post Office Manager Name Role Phone Unavailable Primary Care Provider Unavailabl e Encounter Details Date Type Department Care Team (Late st Contact Info) Description 01/06/2017 Abstract [facility] [address] [place] [address] Fox David MD Social History Tobacco Use Types Packs/Day Years [...]
--- OUTSIDE RECORDS SUMMARY | 2024-11-28 06:02 | XMS_ITS | Encounter Summary ---
Author Organization [facility] Address [address] [place] [address]. [place] [address] [place] [address] Care Team Providers Care Survey Rodman Name Role Phone Unavailable Primary Care Provider Unavailabl e Encounter Details Date Type Department Care Team (Late st Contact Info) Description 05/18/2018 Abstract [facility] [address] [place] [address] Elana Lin, DEJUAN [address] [facility] [address] [place] [address] Social History Tobacco Use Types Packs/Day Years [...]
--- OUTSIDE RECORDS SUMMARY | 2024-11-28 06:02 | XMS_ITS | Encounter Summary ---
Author Organization [facility] Address [address] [place] [address]. [place] [address] [place] [address] Care Team Providers Care Heading Saw Operator Name Role Phone Unavailable Primary Care Provider Unavailabl e Encounter Details Date Type Department Care Team (Late st Contact Info) Description 06/03/2017 Abstract [facility] [address] [place] [address] Thad [place] MD [address] [place] [address] [id number] Social History Tobacco Use Types Packs/Day Years [...]
--- OUTSIDE RECORDS SUMMARY | 2024-11-28 06:02 | XMS_ITS | Encounter Summary ---
Author Organization [facility] Address [address] [place] [address]. [place], [place] [address] [place] [address] Care Team Providers Care Operations Accountant Name Role Phone Unavailable Primary Care Provider Unavailabl e Encounter Details Date Type Department Care Team (Late st Contact Info) Description 07/24/2016 Abstract [facility] Clinics Conversion Md, Generic Conversion, Social History Tobacco Use Types Packs/Day Years [...]
--- OUTSIDE RECORDS SUMMARY | 2024-11-28 06:02 | XMS_ITS | Encounter Summary ---
Author Organization [facility] Address [address] [place] [address]. [place], [place] [address] [place] [address] Care Team Providers Care Mill Feeder Name Role Phone Unavailable Primary Care Provider Unavailabl e Encounter Details Date Type Department Care Team (Late st Contact Info) Description 07/21/2016 Abstract [facility] CONVERSION [address] [place] [id number] , Generic Conversion, Social History Tobacco Use Types [...]
--- OUTSIDE RECORDS SUMMARY | 2024-11-28 06:02 | XMS_ITS | Encounter Summary ---
Author Organization [facility] Address [address] [place] [address]. [place], [place] [address] [place] [address] Care Team Providers Care Agile Java Developer Name Role Phone Unavailable Primary Care Provider Unavailabl e Encounter Details Date Type Department Care Team (Late st Contact Info) Description 11/24/[address] [facility] [address] [place] [address] [place] [address] [place] [address] Social History Tobacco Use Types Packs/Day Years [...]
--- OUTSIDE RECORDS SUMMARY | 2024-11-28 06:02 | XMS_ITS | Encounter Summary ---
Author Organization [facility] Address [address] [place] [address]. [place] [address] [place] [address] Care Team Providers Care Women'S Basketball Coach Name Role Phone Unavailable Primary Care Provider Unavailabl e Encounter Details Date Type Department Care Team (Late st Contact Info) Description 12/14/2017 Abstract [facility] [address] [place] [address] [place] [address] [place] [address] [address] [place] [address] Social History Tobacco Use Types Packs/Day Years [...]
--- OUTSIDE RECORDS SUMMARY | 2024-11-28 06:02 | XMS_ITS | Encounter Summary ---
Author Organization [facility] Address [address] [place] [address]. [place], [place] [address] [place] [address] Care Team Providers Care Clerk Of Court Name Role Phone Unavailable Primary Care Provider Unavailabl e Encounter Details Date Type Department Care Team (Late st Contact Info) Description 05/05/2018 Abstract [facility] CONVERSION [address] [place] [phone] Helen Willard MD Social History Tobacco Use Types Packs/Day [...]
--- OUTSIDE RECORDS SUMMARY | 2024-11-28 06:02 | XMS_ITS | Encounter Summary ---
Author Organization [facility] Address [address] [place] [address]. [place], [place] [address] [place] [address] Care Team Providers Care Doctor Naturopathic Name Role Phone Unavailable Primary Care Provider Unavailabl e Encounter Details Date Type Department Care Team (Late st Contact Info) Description 06/05/[address] [facility] [address] [place] [address] , Deven Juarez MD Social History Tobacco Use Types Packs/Day [...]
--- OUTSIDE RECORDS SUMMARY | 2024-11-28 06:02 | XMS_ITS | Encounter Summary ---
Author Organization [facility] Address [address] [place] [address]. [place] [address] [place] [address] Care Team Providers Care Golf Club Repairer Name Role Phone Unavailable Primary Care Provider Unavailabl e Encounter Details Date Type Department Care Team (Late st Contact Info) Description 09/11/2019 Abstract [facility] Emergency Services [address] [place] [address] Angel Locke MD [address] [place] [address] Social History Tobacco Use Types Packs/Day Years [...]
--- OUTSIDE RECORDS SUMMARY | 2024-11-28 06:02 | XMS_ITS | Encounter Summary ---
Author Organization [facility] Address [address] [place] [address]. [place] [address] [place] [address] Care Team Providers Care Canteen Attendant Name Role Phone Unavailable Primary Care Provider Unavailabl e Encounter Details Date Type Department Care Team (Late st Contact Info) Description 12/09/2017 Abstract [facility] [address] [place] [address] [place] [address] [place] [address] [address] [place] [address] Social History Tobacco Use Types Packs/Day Years [...]
--- OUTSIDE RECORDS SUMMARY | 2024-11-28 06:02 | XMS_ITS | Encounter Summary ---
Author Organization [facility] Address [address] [place] [address]. [place], [place] [address] [place] [address] Care Team Providers Care Pianos And Organs Salesperson Name Role Phone Unavailable Primary Care Provider Unavailabl e Encounter Details Date Type Department Care Team (Late st Contact Info) Description 09/03/[address] [facility] [address] [place] [address] [place] [address] [place] [address] Social History Tobacco Use Types [...]
--- OUTSIDE RECORDS SUMMARY | 2024-11-28 06:02 | XMS_ITS | Encounter Summary ---
Author Organization [facility] Address [address] [place] [address]. [place] [address] [place] [address] Care Team Providers Care Communication Analyst Name Role Phone Unavailable Primary Care Provider Unavailabl e Encounter Details Date Type Department Care Team (Late st Contact Info) Description 12/30/2015 Abstract [facility] Emergency Services [address] [place] [address] Margot Blackburn, [place] [address] Social History Tobacco Use Types Packs/Day Years [...]
--- OUTSIDE RECORDS SUMMARY | 2024-11-28 06:02 | XMS_ITS | Encounter Summary ---
Author Organization [facility] Address [address] [place] [address]. [place] [address] [place] [address] Care Team Providers Care Research Administrator Name Role Phone Unavailable Primary Care Provider Unavailabl e Encounter Details Date Type Department Care Team (Late st Contact Info) Description 11/24/2017 Abstract [facility] [address] [place] [address] [place] [address] [place] [address] [address] [place] [address] Social History Tobacco Use Types Packs/Day Years [...]
--- OUTSIDE RECORDS SUMMARY | 2024-11-28 06:02 | XMS_ITS | Encounter Summary ---
Author Organization [facility] Address [address] [place] [address]. [place], [place] [address] [place] [address] Care Team Providers Care Costume Cutter Name Role Phone Unavailable Primary Care Provider Unavailabl e Encounter Details Date Type Department Care Team (Late st Contact Info) Description 05/25/[address] [facility] [address] [place] [address] , Deven Juarez MD Social History Tobacco [...]
--- OUTSIDE RECORDS SUMMARY | 2024-11-28 06:02 | XMS_ITS | Encounter Summary ---
Author Organization [facility] Address [address] [place] [address]. [place] [address] [place] [address] Care Team Providers Care Manufacturing Executive Name Role Phone Unavailable Primary Care Provider Unavailabl e Encounter Details Date Type Department Care Team (Late st Contact Info) Description 07/24/2016 Abstract [facility] Emergency Services [address] [place] [address] Thad [place] MD [address] [place] [address] [phone] Social History Tobacco Use Types Packs/Day Years [...]
--- OUTSIDE RECORDS SUMMARY | 2024-11-28 06:02 | XMS_ITS | Encounter Summary ---
Author Organization [facility] Address [address] [place] [address]. [place], [place] [address] [place] [address] Care Team Providers Care Personal Fitness Manager Name Role Phone Unavailable Primary Care Provider Unavailabl e Encounter Details Date Type Department Care Team (Late st Contact Info) Description 05/05/2018 Abstract [facility] [address] [place] [phone] Helen Willard MD Social History Tobacco Use [...]
--- OUTSIDE RECORDS SUMMARY | 2024-11-28 06:02 | XMS_ITS | Encounter Summary ---
Author Organization [facility] Address [address] [place] [address]. [place] [address] [place] [address] Care Team Providers Care Appliance Worker Name Role Phone Unavailable Primary Care Provider Unavailabl e Encounter Details Date Type Department Care Team (Late st Contact Info) Description 02/09/2017 Abstract [facility] Conversion Jennifer Hutchinson, EMELY [address] [place], [place] [id number] Social History Tobacco Use Types Packs/Day Years Used Date Smoking Tobacco: Never Assessed Comments Unknown Sex and Gender Information Value Date Recorded Sex Assigned at Not on file Legal Sex Female 4:30 PM CDT Gender Identity Not on file Sexual Orientation Not on file documented as of this encounter Last Filed Vital Signs Vital Sign Reading Time Taken Comments Blood Pressure 110/68 02/09/2017 12:01 PM CDT Pulse 80 02/09/2017 12:01 PM CDT Temperature - - Respiratory Rate - - Oxygen Saturation - - Inhaled Oxygen Concentration - - Weight - - Height - - Body Mass Index - - documented in this encounter Plan of Treatment Not on file documented as of this encounter Visit Diagnoses Not on filedocumented in this encounter
--- OUTSIDE RECORDS SUMMARY | 2024-11-28 06:02 | XMS_ITS | Encounter Summary ---
Author Organization [facility] Address [address] [place] [address]. [place] [address] [place] [address] Care Team Providers Care Shower Screen Installer Name Role Phone Unavailable Primary Care Provider Unavailabl e Encounter Details Date Type Department Care Team (Late st Contact Info) Description 05/17/2019 Abstract [facility] [address] [place] [address] Yogi Cho MD [address] [place] [address] [address] [place] [address] Social History Tobacco Use Types Packs/Day Years [...]
--- OUTSIDE RECORDS SUMMARY | 2024-11-28 06:02 | XMS_ITS | Encounter Summary ---
Author Organization [facility] Address [address] [place] [address]. [place], [place] [address] [place] [address] Care Team Providers Care Director Retirement Name Role Phone Unavailable Primary Care Provider Unavailabl e Encounter Details Date Type Department Care Team (Late st Contact Info) Description 01/08/[address] [facility] [address] [place] [address] , Deven Juarez MD Social History Tobacco [...]
--- OUTSIDE RECORDS SUMMARY | 2024-11-28 06:02 | XMS_ITS | Encounter Summary ---
Author Organization [facility] Address [address] [place] [address]. [place], [place] [address] [place] [address] Care Team Providers Care Chemical Dependency Nurse Name Role Phone Unavailable Primary Care Provider Unavailabl e Encounter Details Date Type Department Care Team (Late st Contact Info) Description 06/15/2017 Abstract [facility] Emergency Services [address] [place] [address] , Deven Juarez MD Social History Tobacco [...]
--- OUTSIDE RECORDS SUMMARY | 2024-11-28 06:02 | XMS_ITS | Encounter Summary ---
Author Organization [facility] Address [address] [place] [address]. [place], [place] [address] [place] [address] Care Team Providers Care Subway Guard Name Role Phone Unavailable Primary Care Provider Unavailabl e Encounter Details Date Type Department Care Team (Late st Contact Info) Description 03/19/[address] [facility] [address] [place] [address] [place] [address] [place] [address] Social History Tobacco Use Types [...]
--- OUTSIDE RECORDS SUMMARY | 2024-11-28 06:02 | XMS_ITS | Encounter Summary ---
Author Organization [facility] Address [address] [place] [address]. [place], [place] [address] [place] [address] Care Team Providers Care Plateman Name Role Phone Unavailable Primary Care Provider Unavailabl e Encounter Details Date Type Department Care Team (Late st Contact Info) Description 11/12/2018 Abstract [facility] Emergency Services [address] [place] [address] Adolph Jenkins MD [address] [place] [address] Social History Tobacco Use Types Packs/Day Years [...]
--- OUTSIDE RECORDS SUMMARY | 2024-11-28 06:02 | XMS_ITS | Encounter Summary ---
Author Organization [facility] Address [address] [place] [address]. [place] [address] [place] [address] Care Team Providers Care Automation Clerk Name Role Phone Unavailable Primary Care Provider Unavailabl e Encounter Details Date Type Department Care Team (Late st Contact Info) Description 05/18/2018 Abstract [facility] [address] [place] [address] [place] [address] [place] [address] [address] [place] [address] Social History Tobacco Use Types Packs/Day Years [...]
--- OUTSIDE RECORDS SUMMARY | 2024-11-28 06:02 | XMS_ITS | Encounter Summary ---
Author Organization [facility] Address [address] [place] [address]. [place], [place] [address] [place] [address] Care Team Providers Care Asphalt Tile Floor Layer Name Role Phone Unavailable Primary Care Provider Unavailabl e Encounter Details Date Type Department Care Team (Late st Contact Info) Description 10/02/[address] [facility] [address] [place] [address] [place] [address] [place] [address] Social History Tobacco Use Types [...]
--- OUTSIDE RECORDS SUMMARY | 2024-11-28 06:02 | XMS_ITS | Encounter Summary ---
Author Organization [facility] Address [address] [place] [address]. [place] [address] [place] [address] Care Team Providers Care Flash Developer Name Role Phone Unavailable Primary Care Provider Unavailabl e Encounter Details Date Type Department Care Team (Late st Contact Info) Description 02/11/2018 Abstract [facility] Emergency Services [address] [place] [address] Vlad Garg MD [facility] [place] [address] Social History Tobacco Use Types Packs/Day Years [...]
--- OUTSIDE RECORDS SUMMARY | 2024-11-28 06:07 | XMS_ITS | Data Portability ---
Author Organization [facility], [address] [facility] ([place] Address [address] [place] [address] [place] [address] Care Team Providers Care Animal Laboratory Helper Name Role Phone VIJI OWUSU Primary Care Provider [phone] Assessment Encounter Date Assessment Date Assessment LastModified by Organization Details LastModified Time 10/02/2024 10/02/2024 Patient is interested in Sotyktu. Had a very long discussion with the patient over the Ric inhibitors and the tyk2 i. Discussed the risk of infection, malignancy, thrombosis, cardiac events, lab changes as well as the most common side effects including nasopharyngiti s, diarrhea, bronchitis, ear infection, hives, folliculitis, and upper respiratory infection symptoms. Patient denies a history of cancer, blood clots, heart attacks, or infection. She is a smoker and is trying to quit. She is not on OCP. Cbc, cmp, lipid panel, bhcg, tb, hep panel, hiv checked today. [email or web address] Not available 10/02/2024 17:00:05 Plan of Treatment Reminders Order Date Submit Date Provider Last Modified By Organization Details Last Modified Time Details Appointments None recorded. Lab CBC w/ auto diff 2023 024 adoughert y17 [facility], [address] [place] [address], [address], 4 10:47:15 CMP, serum or plasma 2023 024 adoughert y17 [facility], [address] [place] [address], [address], 4 10:47:15 hepatitis panel (A+B+C), acute, serum 2023 adoughert y17 [facility], [address] [place] [address], [address], 4 10:47:15 HIV 1+2 Ab + HIV 1 p24 Ag, panel, [place], serum or plasma 2023 adoughert y17 [facility], [address] [place] [address], [address], 4 10:47:16 TB (M tuberculos is), IFN-gamma+ mitogen-ga mma, blood 2023 adoughert y17 [facility], [address] [place] [address], [address], 10:47:16 beta-HCG, quantitati ve, serum or plasma 2023 adoughert y17 [facility], [address] [place] [address], [address], 10:47:16 lipid panel, serum 2023 adoughert y17 [facility], [address] [place] [address], [address], 10:47:16 Referral None recorded. Procedures None recorded. Surgeries None recorded. Imaging None recorded. Medication Orders None recorded. Patient TargetsNo targets recorded. Patient Instructions Encounter Date Encounter Id Patient Instructions Last Modified By Organization Details Last Modified Time 10/02/2024 [id number] Plan of care reviewed and discussed with patient. Patient verbalizes understanding and has no questions. Professional minutes spent face to face, chart review, and chart documentation with patient: [email or web address] Not available 07/23/2024 11:10:01 Reason for Referral None Reported. Problems Name Problem SNOMED Code Status Onset Date Resolution Date Notes Provider Name and Address Organization Details Recorded Time Psoriasis vulgaris 744393867 Active Judi Davidson PA-C [address] [place] [address], [phone], [facility] 4 11:09:46 Psoriatic arthritis 326073450 Active 024 Judi Davidson PA-C [address] [place] [address], [phone], [facility] 4 11:09:53 Problem Notes None recorded. Medical Equipment None Reported. Allergies No known drug allergies Medications Name Sig Start Date Stop Date Status Note LastModified by Organization Details LastModified Time amoxicillin 500 mg capsule TAKE 2 CAPSULES BY MOUTH TWICE DAILY active Not Available Not Available No t Available nystatin 100,000 unit/mL oral suspension TAKE 5 ML BY MOUTH 4 TIMES DAILY FOR 10 DAYS active Not Available Not Available No t Available azithromyci n 250 mg tablet TAKE 2 TABLETS BY MOUTH ON DAY 1, AND THEN TAKE 1 TABLET BY MOUTH ONCE A DAY ON DAY 2 THROUGH DAY 5 10/02 completed Not Available Not Available Not Available valacyclovi r 1 gram tablet TAKE 1 TABLET BY MOUTH THREE TIMES DAILY FOR 7 DAYS active Not Available Not Available No t Available hydrocodone 5 mg-acetamin ophen 325 mg tablet TAKE 1 TABLET BY MOUTH EVERY 6 HOURS NEEDED FOR PAIN active Not Available Not Available No t Available triamcinolo ne acetonide 0.1 % topical cream APPLY CREAM EXTERNALL Y TO AFFECTED AREA(S) TWICE DAILY FOR 2 WEEKS. TAKE ONE WEEK BREAK AND USE NEEDED AFTER THE CYCLE COMPLETED . active Not Available Not Available No t Available clobetasol 0.05 % topical ointment APPLY A THIN LAYER TO THE AFFECTED AREA on your body BY TOPICAL ROUTE 2 TIMES PER DAY for 2 weeks take one week off then repeat as needed. 2023 active Not Available Not Available Not Avai lable albuterol sulfate HFA 90 mcg/actuati on aerosol inhaler INHALE 2 PUFFS BY MOUTH EVERY 4 HOURS NEEDED active Not Available Not Available No t Available mometasone 0.1 % topical cream APPLY A THIN LAYER TO THE AFFECTED AREA(S) on the face BY TOPICAL ROUTE 3 times a week 2023 active Not Available Not Available Not Avai lable Otezla 30 mg tablet active Not Available Not Available No t Available naloxone 4 mg/actuatio n nasal spray CALL 911. ADMINISTE R A SINGLE SPRAY INTRANASA LLY INTO ONE NOSTRIL UPON SIGNS OF OPIOID OVERDOSE. MAY REPEAT AFTER 3 MINUTES IF NO RESPONSE. active Not Available Not Available No t Available Paxlovid 300 mg (150 mg x 2)-100 mg tablets in a dose pack TAKE 3 TABLETS TOGETHER (TWO 150 MG NIRMATREL VIR TABLETS AND ONE 100 MG RITONAVIR TABLET) BY MOUTH TWICE DAILY FOR 5 DAYS. active Not Available Not Available No t Available Vitals None Recorded Social History None recorded. Functional Status None recorded. Mental Status None recorded. Family History Nothing Reported. Medical History No medical history recorded. Gynecological HistoryNo gynecological history recorded. Obstetrics History GPAL:G 0 P 0 0 0 0 Past Encounters Encounter ID Performer Location Encounter Start Date Encounter Closed Date Diagnosis/Indication Diagnosis SNOMED-CT Code Diagnosis ICD10 Code [id number] Judi Davidson PA-C [facility] [address] [place] [address] 10/02/2024 16:06:15 10/02/2024 17:01:23 Psoriasis vulgaris 744284509 L40.0 Psoriatic arthritis 1563 35066 L40.50 Long-term current use of drug therapy 310844924 Z79.899 Health Concerns Section Related Observation LastModified by Organization Detai ls LastModified Time None Recorded Concern Status LastModified by Organization Details LastModified Time None Recorded Advance Directives Directive None Recorded Payers Encounter Date Sequence Insurance Name Policy Number Policy Rodríguez Covered Member ID Rodríguez Member ID Guarantor Name 10/02/2024 1 [facility] ON OR AFTER 05/29/21 (MEDICAID REPLACEMENT - HMO) Chelsea Hays [id number] Chelsea Hays Notes Date Note Type Note Provider Name and Address Organization Details Recorded Time 10/02/2024 text/html 4 mo recheck of psoriasis and psoriatic arthritis on Otezla. She has been sick a lot the last month and is wondering if Otezla is making it worse. Has hip pain that is worse at night. She says all of her joints hurt except her elbows and ankles. She does report difficulty getting up out of bed in the morning because of her hip pain. She think hip pain is worse since starting Otezla. Also has soft stools with Otezla. Has 7 children but is possibly thinking about future children. Judi Davidson PA-C [address] [place] [address], [phone], [facility] 10/02/2024 17:00:24 OBGyn Episode No OBEpisode recorded.
--- OUTSIDE RECORDS SUMMARY | 2024-11-28 06:07 | XMS_ITS | Continuity of Care Document ---
Author Organization [facility], [facility] ([place] Address [address] [place] [address] Care Team Providers Care Dispatcher Relay Name Role Phone VIJI OWUSU Primary Care Provider [phone] Assessment Encounter Date Assessment Date Assessment LastModified [...] [email or web address] y17 [facility], [address] [place] [address], [address], 4 10:47:15 CMP, serum or plasma 2023 024 adoughert y17 [facility], [address] [place] [address], [address], 4 10:47:15 hepatitis panel (A+B+C), acute, serum 2023 adoughert y17 [facility], [address] [place] [address], [address], 4 10:47:15 HIV 1+2 Ab + HIV 1 p24 Ag, panel, IA, serum or plasma 2023 adoughert y17 [facility], [address] [place] [address], [address], 4 10:47:16 TB (M tuberculos is), IFN-gamma+ mitogen-ga mma, blood 2023 adoughert y17 [facility], [address] [place] [address], [address], 10:47:16 beta-HCG, quantitati ve, serum or plasma 2023 adoughert y17 [facility], [address] [place] [address], [address], 10:47:16 lipid panel, serum 2023 adoughert y17 [facility], [address] [place] [address], [address], 10:47:16 Referral None recorded. Procedures None recorded. Surgeries None recorded. Imaging None recorded. Medication Orders None recorded. Patient TargetsNo targets recorded. Patient Instructions Encounter Date Encounter Id Patient Instructions Last Modified By Organization Details Last Modified Time 10/02/2024 [id number] Plan of care reviewed and discussed with patient. Patient verbalizes understanding and has no questions. Professional minutes spent face to face, chart review, and chart documentation with patient: [email or web address] Not available 07/23/2024 11:10:01 Reason for Referral None Reported. Problems Name Problem SNOMED Code Status Onset Date Resolution Date Notes Provider Name and Address Organization Details Recorded Time Psoriasis vulgaris 163507517 Active Judi Davidson PA-C [address] [place] [address], [phone], [facility] 4 11:09:46 Psoriatic arthritis 498963049 Active 024 Judi Davidson PA-C [address] [place] [address], [phone], [facility] 4 11:09:53 Problem Notes None recorded. Medical [...] Diagnosis/Indication Diagnosis SNOMED-CT Code Diagnosis ICD10 Code [id number] Judi Davidson PA-C [facility] [address] [place] [address] 10/02/2024 16:06:15 10/02/2024 17:01:23 Psoriasis vulgaris 079513731 L40.0 Psoriatic arthritis 1563 14899 L40.50 Long-term current use of drug therapy 666359003 Z79.899 Health Concerns Section Related Observation LastModified by Organization Detai ls LastModified Time None Recorded Concern Status LastModified by Organization Details LastModified Time None Recorded Payers Encounter Date Sequence Insurance Name Policy Number Policy Rodríguez Covered Member ID Rodríguez Member ID Guarantor Name 10/02/2024 1 [facility] ON OR AFTER 05/29/21 (MEDICAID REPLACEMENT - HMO) Chelsea Hays [id number] Chelsea Hays Notes Date Note Type Note [...] future children. Judi Davidson PA-C [address] [place] [address], [id number], [facility] 10/02/2024 17:00:24 OBGyn Episode No OBEpisode recorded.
--- OUTSIDE RECORDS SUMMARY | 2024-11-28 06:07 | XMS_ITS | Continuity of Care Document ---
Author Organization [facility] Марина PETERSON Address [address] [place] [address] Care Team Providers Care Locate Technician Name Role Phone VIJI TURNER Primary Care Provider JOSAFAT [place] [employer] Manager Assessment No assessment recorded. Plan of Treatment Reminders Order Date Submit Date Provider Last Modified By Organization Details Last Modified Time Details Appointments None recorded. Lab None recorded. Referral physical therapist referral - appt for nokomis [address], [address], 4 11:49:42 Procedures None recorded. Surgeries None recorded. Imaging None recorded. Medication Orders None recorded. Patient TargetsNo targets recorded. Patient Instructions Encounter Date Encounter Id Patient Instructions Last Modified By Organization Details Last Modified Time 11/06/2024 [id number] A healthy lifestyle: care instructions Not available 11/06/2024 14:29:43 Quitting Tobacco : Care Instructions Not available 11/06/2024 14:29:43 Reason for Referral Physical Therapist Referral for Degeneration of lumbar intervertebral disc appt for nokomis Referring Physician: Viji Turner, Family Medicine, Encounter Date: 11/06/2024 Problems Name Problem SNOMED Code Status Onset Date Resolution Date Notes Provider Name and Address Organization Details Recorded Time Accessory nipple 23521732 Active 2019 Not Available [facility] 09:52:45 Degenerati on of cervical interverte bral disc 71681021 Active 2019 Not Available [facility] 02/04/202 1 09:52:45 Spinal stenosis in cervical region 81346195 Active 2019 Not Available [facility] 1 09:52:45 Tendinosis of right shoulder 9428840864450 9100 Active 2019 Not Available [facility] 1 09:52:45 Cough 10166441 Active 2023 Viji Turner PA-C Attn: Accounting ,[address] [facility], [place], [address] , [facility] 4 13:07:13 Degenerati on of lumbar interverte bral disc 51894824 Active 2023 Viji Turner PA-C Attn: Accounting ,[address] [facility], [place], [address] , [facility] 4 14:55:51 Disorder of rotator cuff 329698549 Active Not Available [facility] 1 09:52:45 Anaphylaxi s 66770929 Active Not Available [facility] 1 09:52:45 Problem Notes None recorded. Procedures Surgical History Date Name Laterality Status Provider Name and Address Organization Details Recorded Time Appendectomy completed Rita Gil RN [facility] 07/08/2016 10:37:36 Imaging Results None recorded. Procedure Notes None recorded. Medical Equipment None Reported. Allergies Allergen ID Allergen Name Allergen Category Reaction Reaction Severity Criticality Documentation Date Start Date Code Code System Note Provider Name and Address Organization Details Recorded Time 67331 wasp venoms environme nt Not available Not available Not available 07/08/2016 76298 RxNorm Rita Gil RN [facility], [facility] 6 10:37:36 Medications Name Sig Start Date Stop Date Status Note LastModified by Organization Details LastModified Time cyclobenzap rine 10 mg tablet TAKE 1 TABLET BY MOUTH THREE TIMES DAILY FOR 15 DAYS 12/15 completed Not Available Not Available Not Available amoxicillin 500 mg capsule TAKE 2 CAPSULES BY MOUTH TWICE DAILY 09/25 completed Not Available Not Available Not Available buspirone 5 mg tablet 01/16 completed Not Available Not Available Not Available nystatin 100,000 unit/mL oral suspension TAKE 5 ML BY MOUTH 4 TIMES DAILY FOR 10 DAYS 12/15 completed Not Available Not Available Not Available prednisone 10 mg tablet TAKE 3 TABLETS BY MOUTH ONCE DAILY FOR 3 DAYS 09/27 completed Not Available Not Available Not Available venlafaxine ER 75 mg capsule,ext ended release 24 hr 01/16 completed Not Available Not Available Not Available clindamycin HCl 300 mg capsule TAKE ONE CAPSULE BY MOUTH EVERY 8 HOURS UNTIL ALL TAKEN 02/10 completed Not Available Not Available Not Available azithromyci n 250 mg tablet TAKE 2 TABLETS BY MOUTH ON DAY 1, AND THEN TAKE 1 TABLET BY MOUTH ONCE A DAY ON DAY 2 THROUGH DAY 5 11/06 completed Not Available Not Available Not Available ibuprofen 800 mg tablet TAKE 1 TABLET EVERY 6 HOURS NEEDED FOR PAIN 04/22 completed Not Available Not Available Not Available Lidocaine Viscous 2 % mucosal solution SWISH AND EXPECTORA TE 5 ML BY MOUTH EVERY 1 TO 2 HOURS NEEDED FOR PAIN 04/22 completed Not Available Not Available Not Available valacyclovi r 1 gram tablet TAKE 1 TABLET BY MOUTH THREE TIMES DAILY FOR 7 DAYS 08/21 completed Not Available Not Available Not Available hydrocodone 5 mg-acetamin ophen 325 mg tablet TAKE 1 TABLET BY MOUTH EVERY 6 HOURS NEEDED FOR PAIN 08/21 completed Not Available Not Available Not Available meloxicam 15 mg tablet TAKE 1 TABLET BY MOUTH ONCE DAILY 12/15 completed Not Available Not Available Not Available ondansetron HCl 4 mg tablet 01/03 completed Not Available Not Available Not Available Medrol (Suhail) 4 mg tablets in a dose pack Take 1 dose pk by oral route as directed. 04/30 completed Not Available Not Available Not Available prednisone 20 mg tablet 01/03 completed Not Available Not Available Not Available naproxen 250 mg tablet take 1-2 tablets up to twice daily as needed 07/31 completed Not Available Not Available Not Available acyclovir 400 mg tablet 01/16 completed Not Available Not Available Not Available sulfamethox azole 800 mg-trimetho prim 160 mg tablet TAKE 1 TABLET BY MOUTH EVERY 12 HOURS 02/10 completed Not Available Not Available Not Available triamcinolo ne acetonide 0.1 % topical cream APPLY CREAM EXTERNALL Y TO AFFECTED AREA(S) TWICE DAILY FOR 2 WEEKS. TAKE ONE WEEK BREAK AND USE NEEDED AFTER THE CYCLE COMPLETED . active Not Available Not Available No t Available oxycodone-a cetaminophe n 5 mg-325 mg tablet Take 1 tablet 3 times a day by oral route as needed. 07/31 completed Not Available Not Available Not Available terbinafine HCl 250 mg tablet TAKE 1 TABLET BY MOUTH ONCE DAILY 02/10 completed Not Available Not Available Not Available amoxicillin 875 mg tablet Take 1 tablet every 12 hours by oral route for 10 days. 02/18 completed Not Available Not Available Not Available orphenadrin e citrate ER 100 mg tablet,exte nded release 01/03 completed Not Available Not Available Not Available diclofenac potassium 50 mg tablet Take 1 tablet twice a day by oral route for 14 days. 01/16 completed Not Available Not Available Not Available diclofenac sodium 75 mg tablet,marco yed release Take 1 tablet twice a day by oral route. 01/19 completed Not Available Not Available Not Available diclofenac sodium 50 mg tablet,marco yed release 07/31 completed Not Available Not Available Not Available clobetasol 0.05 % topical ointment APPLY A THIN LAYER TO THE AFFECTED AREA(S) BY TOPICAL ROUTE 2 TIMES PER DAY active Not Available Not Available No t Available epinephrine 0.3 mg/0.3 mL injection, auto-inject or Take by injection route as directed. active Not Available Not Available No t Available ibuprofen 600 mg tablet TAKE 1 TABLET BY MOUTH THREE TIMES DAILY WITH FOOD OR MILK NEEDED 01/16 completed Not Available Not Available Not Available albuterol sulfate HFA 90 mcg/actuati on aerosol inhaler INHALE 2 PUFFS BY MOUTH EVERY 4 HOURS NEEDED active Not Available Not Available No t Available ketorolac 60 mg/2 mL intramuscul ar solution Inject 2 mL by intramusc ular route. 12/15 completed Not Available Not Available Not Available norethindro ne (contracept timothy) 0.35 mg tablet 01/19 completed Not Available Not Available Not Available hydrocortis one 2.5 % topical ointment APPLY A THIN LAYER TO THE AFFECTED AREA(S) BY TOPICAL ROUTE 2 TIMES PER DAY 01/03 completed Not Available Not Available Not Available hydroxyzine HCl 10 mg tablet 01/16 completed Not Available Not Available Not Available mometasone 0.1 % topical cream active Not Available Not Available Not Available calcipotrie ne 0.005 % topical ointment APPLY A THIN LAYER TO THE AFFECTED AREA(S) BY TOPICAL ROUTE ONCE DAILY ; RUB IN GENTLY AND COMPLETEL Y 04/30 completed Not Available Not Available Not Available hydroxyzine pamoate 25 mg capsule 01/16 completed Not Available Not Available Not Available bupropion HCl XL 150 mg 24 hr tablet, extended release 01/16 completed Not Available Not Available Not Available 12/18 (28) 1 mg-20 mcg (21)/75 mg (7) tablet Take 1 tablet every day by oral route. 01/19 completed Not Available Not Available Not Available 01/03 completed Not Available Not Available Not Available Banophen 50 mg capsule 01/03 completed Not Available Not Available Not Available Otezla 30 mg tablet 11/06 completed Not Available Not Available Not Available Otezla 11/06 completed Not Available Not Available Not Available naloxone 4 mg/actuatio n nasal spray CALL 911. ADMINISTE R A SINGLE SPRAY INTRANASA LLY INTO ONE NOSTRIL UPON SIGNS OF OPIOID OVERDOSE. MAY REPEAT AFTER 3 MINUTES IF NO RESPONSE. 08/21 completed Not Available Not Available Not Available Paxlovid 300 mg (150 mg x 2)-100 mg tablets in a dose pack TAKE 3 TABLETS TOGETHER (TWO 150 MG NIRMATREL VIR TABLETS AND ONE 100 MG RITONAVIR TABLET) BY MOUTH TWICE DAILY FOR 5 DAYS. 08/21 completed Not Available Not Available Not Available Vitals Date Recorded Body height Body mass index (BMI) Body weight Heart rate Respiratory rate Systolic blood pressure Diastolic blood pressure Provider Name and Address Organization Details Last Updated DateTime 4 175.26 cm 30 kg/m2 60300.2 5 g 73 /min 18 /min 112 mm[Hg] 70 mm[Hg] Tosha Hunter LPN [place] - [facility] 4 14:20:10 Social History Question Answer Notes LastModified by Organizat ion Details LastModified Time Tobacco Smoking Status Current Every Day Smoker Rita Gli RN null, [place] - [facility] 07/08/2016 10:37:36 Do You Have An Advance Directive? No Information not available 09/27/2023 Are You Blind Or Do You Have Difficulty Seeing? No Information not available 09/27/2023 In The 14 Days Before Symptom Onset, Have You Had Close Contact With A Laboratory-confir med COVID-19 While That Case Was Ill? No Information not available 09/27/2023 In The 14 Days Before Symptom Onset, Have You Had Close Contact With A Person Who Is Under Investigation For COVID-19 While That Person Was Ill? No Information not available 09/27/2023 Have You Been To An Area Known To Be High Risk For COVID-19? No Information not available 09/27/2023 Are You Currently Employed? Yes Information not available 09/27/2023 Are You Deaf Or Do You Have Serious Difficulty Hearing? No Information not available 09/27/2023 What Type Of Diet Are You Following? REGULAR Information not available 09/27/2023 Do You Or Have You Ever Used E-cigarettes Or Vape? 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 No Information not available 09/27/2023 What Was The Date Of Your Most Recent Tobacco Screening? 09/25/2024 Information not available 09/25/2024 How Many Children Do You Have? 11 Information not available 09/27/2023 What Is Your Relationship Status? Single Information not available 09/27/2023 Are You Sexually Active? Yes Information not available 09/27/2023 Do You Have Smoke And Carbon Monoxide Detectors In Your Home? Yes Information not available 09/27/2023 At What Age Did You Start Smoking Tobacco? 12 Information not available 10/05/2017 Are You Passively Exposed To Smoke? Yes Information no t available 09/27/2023 Do You Or Have You Ever Used Smokeless Tobacco? Never Used Smokeless Tobacco Information not available 01/17/2020 How Much Tobacco Do You Smoke? 1 PPD [email or web address] Information not available 11/07/2020 Do You Use Any Illicit Or Recreational Drugs? No Information not available 08/21/2024 Do You Use Sunscreen Routinely? Yes Information not available 09/27/2023 Has Tobacco Cessation Counseling Been Provided? Yes [email or web address] Information not available 02/10/2023 On What Date Was Tobacco Cessation Counseling Provided? 09/25/2024 Information not available 09/25/2024 How Many Years Have You Smoked Tobacco? 25 Information not available 01/17/2020 Do You Or Have You Ever Used Any Other Forms Of Tobacco Or Nicotine? No Information not available 02/10/2023 Sex: Female Functional Status Question Answer Note LastModified by Organization D etails LastModified Time Are you able to care for yourself? Yes Information n ot available 09/27/2023 What is your exercise level? None Information not available 09/27/2023 Mental Status None recorded. Family History Relationship Description Onset Age of this Age Resolved Age Notes LastModified by Organization Details LastModified Time Maternal Grandmother Heart disease [email or web address] Not available 2015 10:37:36 Maternal Grandfather Heart disease [email or web address] Not available 2015 10:37:36 Medical History Condition Response Coronary Artery Disease N Other N Atrial Fibrillation N High Blood Pressure N Depression N COPD N Blood Clots N Anxiety Disorder N Muscle, Joint, or Bone Problems N Acid Reflux (GERD) N Cancer N Stroke N ADHD N High Cholesterol N Liver Disease N Schizophrenia N Headaches N Thyroid Problems N Kidney or Bladder Problems N GI Problems N Eating Disorder N Skin Problems N Anemia N Heart Attack ([place]) N Diabetes N Seizures/Epilepsy N Asthma N Allergies N Substance Abuse N Hepatitis N Heart Failure N Osteoporosis N Gynecological History Statement/Question Response Flow Moderate Frequency of Cycle (Q days) 28 On BCP's at Conception? N Menses Monthly No Duration of Flow (days) 7 Age at Menarche 12 Current Control Method Age at First Child 17 LMP Unknown Obstetrics History GPAL:G 0 P 0 0 0 0 Immunizations Vaccine Type Date Status Note Provider Nam e and Address Organization Details Recorded Time COVID-19, mRNA, LNP-S, PF, 30 mcg/0.3 mL dose 1 completed Telisa Medina, NURSE MIDWIFE null, [place] - [facility] 04/22/2023 10:24:05 COVID-19, mRNA, LNP-S, PF, 30 mcg/0.3 mL dose 1 completed Telisa Medina, NURSE MIDWIFE [place], [place] [facility] 04/22/2023 10:24:05 Tdap 7 completed Telisa Medina, NURSE MIDWIFE [place], [place] [facility] 04/22/2023 10:24:05 Influenza, split virus, quadrivalent, PF 8 completed Telisa Medina, NURSE MIDWIFE [place], [place] [facility] 04/22/2023 10:24:05 Influenza, split virus, quadrivalent, PF 7 completed Telisa Medina, NURSE MIDWIFE [place], [place] [facility] 04/22/2023 10:24:05 Influenza, split virus, quadrivalent, preservative 3 completed Viji Turner PA-C Attn: Accounting,[address] [place], [address], [place] [facility] 08/13/2023 10:06:17 Past Encounters Encounter ID Performer Location Encounter Start Date Encounter Closed Date Diagnosis/Indication Diagnosis SNOMED-CT Code Diagnosis ICD10 Code [id number] [facility] [address] [place] [address] 11/06/2024 14:14:10 11/06/2024 14:48:29 Overweight 823656305 E66.3 Smoker 15667114 F17.200 Degenerati on of lumbar intervertebral disc 39362043 M51.369 47723390 Z33.1 Health Concerns Section Related Observation LastModified by Organization Detai ls LastModified Time None Recorded Concern Status LastModified by Organization Details LastModified Time None Recorded Payers Encounter Date Sequence Insurance Name Policy Number Policy Rodríguez Covered Member ID Rodríguez Member ID Guarantor Name 11/06/2024 1 [facility] ON OR AFTER 05/29/21 (MEDICAID REPLACEMENT - HMO) Chelsea Hays [id number] Chelsea Hays Notes Date Note Type Note Provider Name and Address Organization Details Recorded Time 11/06/2024 text/html today reports on week of acute on chronic low back pain at midline. feels uncomfortable pressure sensation with sudden excruciating severe pain with certain positioning. denies numbness, tingling, or radiation of pain to perineum or BLE. Viji Turner PA-C Attn: Accounting,[address] [place], [address], [facility] - [facility] 11/06/2024 14:58:34 OBGyn Episode No OBEpisode recorded.
--- OUTSIDE RECORDS SUMMARY | 2024-11-28 06:07 | XMS_ITS | Data Portability ---
Author Organization [facility] Address [address] [place] [address] Care Team Providers Care House Worker Name Role Phone VIJI TURNER Primary Care Provider JOSAFAT Marion [employer] Software Architect [phone] Assessment No assessment recorded. Plan of Treatment Reminders Order Date Submit Date Provider Last Modified By Organization Details Last Modified Time Details Appointments None recorded. Lab CMP, serum or plasma 2023 024 [facility], [facility] [employer], [address], [place], [address], 4 21:06:50 CBC 2023 024 [facility], [facility] [employer], [address], [place], [address], 4 21:06:51 KOBI (antinuclea r antibodies) screen, serum 2023 024 [facility], [facility] [employer], [address], [place], [address], 4 21:06:49 rf (rheumatoid factor) + anti-ccp abs, serum 2023 024 [facility], [address] [place], [place] [address], [address], [place], [address], 4 21:06:48 inflammatio n panel, serum or plasma 2023 024 [facility], [address] [facility], [address], [place], [address], 4 21:06:50 hla-B27, blood 2023 024 [facility], [address] [facility], [address], [place], [address], 4 21:06:51 Referral physical therapist referral - appt for nokomis [address], [place], [address], 4 11:49:42 Procedures None recorded. Surgeries None recorded. Imaging XR, wrist, 3 or more view 2023 024 [facility] (Registration ), [address] [place] [address], [address], 4 21:51:52 XR, hand, 3 or more view 2023 024 [facility] (Registration ), [address] [place] [address], [address], 4 22:00:59 XR, lumbar spine 2023 024 [facility] (Registration ), [address] [place] [address], [address], 4 13:03:23 XR, chest, 2 view 2023 024 [facility] (Registration ), [address] [place] [address], [address], 4 09:43:37 Medication Orders Valtrex 1 gram tablet 2023 024 [facility] [address] [place], [address], 14:04:31 azithromyci n 250 mg tablet 2023 [facility] [address] [place], [address], 13:32:54 albuterol sulfate HFA 90 mcg/actuati on aerosol inhaler 2023 [facility] [address] [place], [address], 13:28:57 Patient TargetsNo targets recorded. Patient Instructions Encounter Date Encounter Id Patient Instructions Last Modified By Organization Details Last Modified Time 01/31/2024 [id number] A healthy lifestyle: care instructions Not available 01/31/2024 14:56:42 Quitting Tobacco : Care Instructions Not available 01/31/2024 14:56:41 02/21/2024 [id number] A healthy lifestyle: care instructions Not available 02/21/2024 15:28:15 Quitting Tobacco : Care Instructions Not available 02/21/2024 15:28:15 08/21/2024 [id number] A healthy lifestyle: care instructions Not available 08/21/2024 13:54:50 Quitting Tobacco : Care Instructions Not available 08/21/2024 13:54:51 09/25/2024 [id number] A healthy lifestyle: care instructions Not available 09/25/2024 13:07:35 11/06/2024 [id number] A healthy lifestyle: care instructions Not available 11/06/2024 14:29:43 Quitting Tobacco : Care Instructions Not available 11/06/2024 14:29:43 Reason for Referral Physical Therapist Referral for Degeneration of lumbar intervertebral disc appt for nokomis Referring Physician: Viji Turner, Family Medicine, Encounter Date: 11/06/2024 Results Created Date Observation Date Name Description Value Unit Range Abnormal Flag Note LastModifiedBy Organization Detail LastModifiedTime 08/21/2008/2208/22/2024 RHEUM ATOID ARTHR ITIS PROFI LE rheumatoid factor (rf) <10.0 Not Available [facility] ([facility]) [address] [place], [address], 08/28/2024 21:06:48 08/21/20 24 08/22/2024 RHEUM ATOID ARTHR ITIS PROFI LE anti-ccp Ab, IgG/IgA 4 units 0-19 Negat timothy <20 Weak posit timothy 20 - 39 Moder ate posit timothy 40 - 59 Stron g posit timothy >59 Not Available [facility] ([facility]) [address] [place], [address], 08/28/2024 21:06:48 08/21/20 24 08/22/2024 KOBI W/REF EDSON KOBI direct NEGATI VE negati ve Not Available [facility] ([facility]) [address] [facility] [place], [place], [address], 08/28/2024 21:06:49 08/21/20 24 08/22/2024 ESR-W ES+CR P sedimentatio n rate-westerg eric 10 mm/HR 0-32 Not Available [facility] ([facility]) [address] [place], [address], 08/28/2024 21:06:49 08/21/20 24 08/22/2024 ESR-W ES+CR P C-reactive protein, quant 13 mg/L 0-10 above high normal Not Available [facility] ([facility]) [address] [place], [address], 08/28/2024 21:06:49 08/21/20 24 08/22/2024 COMP. METAB OLIC PANEL (14) glucose 81 mg/dL 70-99 Not Available [facility] ([facility]) [address] [place], [address], 08/28/2024 21:06:50 08/21/20 24 08/22/2024 COMP. METAB OLIC PANEL (14) BUN 9 mg/dL 6-24 Not Available [facility] ([facility]) [address] [facility] [place], [address], 08/28/2024 21:06:50 08/21/20 24 08/22/2024 COMP. METAB OLIC PANEL (14) creatinine 0.82 mg/dL 0.57-1 .00 Not Available [facility] ([facility]) [address] [facility] [place], [address], 08/28/2024 21:06:50 08/21/20 24 08/22/2024 COMP. METAB OLIC PANEL (14) eGFR 93 mL/mi n/1.7 3 >59 Not Available [facility] ([facility]) [address] [facility] [place], [place], [address], 08/28/2024 21:06:50 08/21/20 24 08/22/2024 COMP. METAB OLIC PANEL (14) BUN/creatini ne ratio 11 9-23 Not Available [facility] ([facility]) [address] [facility] [place], [address], 08/28/2024 21:06:50 08/21/20 24 08/22/2024 COMP. METAB OLIC PANEL (14) sodium 142 mmol/ L 134-14 4 Not Available [facility] ([facility]) [address] [facility] [place], [address], 08/28/2024 21:06:50 08/21/20 24 08/22/2024 COMP. METAB OLIC PANEL (14) potassium 4.6 mmol/ L 3.5-5. 2 Not Available [facility] ([facility]) [address] [facility] [place], [address], 08/28/2024 21:06:50 08/21/20 24 08/22/2024 COMP. METAB OLIC PANEL (14) chloride 104 mmol/ L 96-106 Not Available [facility] ([facility]) [address], [place], [address], 08/28/2024 21:06:50 08/21/20 24 08/22/2024 COMP. METAB OLIC PANEL (14) carbon dioxide, total 26 mmol/ L 20- Not Available [facility] ([facility]) [address], [place], [address], 08/28/2024 21:06:50 08/21/20 24 08/22/2024 COMP. METAB OLIC PANEL (14) calcium 9.9 mg/dL 8.7-10 .2 Not Available [facility] ([facility]) [address] [place], [address], 08/28/2024 21:06:50 08/21/20 24 08/22/2024 COMP. METAB OLIC PANEL (14) protein, total 7.0 g/dL 6.0-8. 5 Not Available [facility] ([facility]) [address], [place], [address], 08/28/2024 21:06:50 08/21/20 24 08/22/2024 COMP. METAB OLIC PANEL (14) albumin 4.4 g/dL 3.9-4. 9 Not Available [facility] ([facility]) [address] [facility] [place], [address], 08/28/2024 21:06:50 08/21/20 24 08/22/2024 COMP. METAB OLIC PANEL (14) globulin, total 2.6 g/dL 1.5-4. 5 Not Available [facility] ([facility]) [address] [facility] [place], [address], 08/28/2024 21:06:50 08/21/20 24 08/22/2024 COMP. METAB OLIC PANEL (14) bilirubin, total 0.2 mg/dL 0.0-1. 2 Not Available [facility] ([facility]) [address] [facility] [place], [place], [address], 08/28/2024 21:06:50 08/21/20 24 08/22/2024 COMP. METAB OLIC PANEL (14) alkaline phosphatase 75 IU/L 44-121 Not Available [facility] ([facility]) [address] [facility] [place], [place], [address], 08/28/2024 21:06:50 08/21/20 24 08/22/2024 COMP. METAB OLIC PANEL (14) AST (SGOT) 11 IU/L 0-40 Not Available [facility] ([facility]) [address] [facility] [place], [place], [address], 08/28/2024 21:06:50 08/21/20 24 08/22/2024 COMP. METAB OLIC PANEL (14) ALT (SGPT) 12 IU/L 0-32 Not Available [facility] ([facility]) [address] [facility] [place], [place], [address], 08/28/2024 21:06:50 08/21/20 24 08/28/2024 HLA B 27 DISEA SE ASSOC IATIO N hla-B27 NEGATI VE HLA-B *27 Negat timothy B27 allel e inter preta tion for all loci based on IMGT/ HLA datab ase versi on 3. 0 This test was devel oped and its perfo rmanc e markel cteri stics deter mined by [facility]. It has not been clear ed or appro galina by the Food and Drug Admin istra tion. [facility] CLIA ID Arabella [id number] This test was perfo rmed using Polym erase Chain React ion (PCR) and Seque nce Speci fic Oligo nucle otide Probe s (SSOP ) techn ique. Seque nce Based Typin g (SBT) may be used as a suppl ement al metho d when neces taylor. If you have quest ions, pleas e call HLA custo katherine servi ce at [phone] or email at [email or web address]. Not Available [facility] ([facility]) [address] [facility] [place], [place], [address], 08/28/2024 21:06:51 08/21/2008/22/2024 CBC, PLATE LET, NO DIFFE RENTI AL WBC 6.7 x10e3 /uL 3.4-10 .8 Not Available [facility] ([facility]) [address] [facility] [place], [place], [address], 08/28/2024 21:06:51 08/21/20 24 08/22/2024 CBC, PLATE LET, NO DIFFE RENTI AL RBC 4.14 x10e6 /uL 3.77-5 .28 Not Available [facility] ([facility]) [address] [facility] [place], [place], [address], 08/28/2024 21:06:51 08/21/2008/22/2024 CBC, PLATE LET, NO DIFFE RENTI AL hemoglobin 12.3 g/dL 11.1-1 5.9 Not Available [facility] ([facility]) [address] [facility] [place], [place], [address], 08/28/2024 21:06:51 08/21/20 24 08/22/2024 CBC, PLATE LET, NO DIFFE RENTI AL hematocrit 38.9 % 34.0-4 6.6 Not Available [facility] ([facility]) [address] [facility] [place], [place], [address], 08/28/2024 21:06:51 08/21/2008/22/2024 CBC, PLATE LET, NO DIFFE RENTI AL MCV 94 fL 79-97 Not Available [facility] ([facility]) [address] [place], [address], 08/28/2024 21:06:51 08/21/20 24 08/22/2024 CBC, PLATE LET, NO DIFFE RENTI AL MCH 29.7 pg 26.6-3 3.0 Not Available [facility] ([facility]) [address] [facility] [place] [facility], [place], [address], 08/28/2024 21:06:51 08/21/20 24 08/22/2024 CBC, PLATE LET, NO DIFFE RENTI AL MCHC 31.6 g/dL 31.5-3 5.7 Not Available [facility] ([facility]) [address] [facility] [place] [facility], [place], [address], 08/28/2024 21:06:51 08/21/20 24 08/22/2024 CBC, PLATE LET, NO DIFFE RENTI AL RDW 12.2 % 11.7-1 5.4 Not Available [facility] ([facility]) [address] [facility], [place], [address], 08/28/2024 21:06:51 08/21/20 24 08/22/2024 CBC, PLATE LET, NO DIFFE RENTI AL platelets 264 x10e3 /uL 150-45 0 Not Available [facility] ([facility]) [address] [facility] [place], [place], [address], 08/28/2024 21:06:51 01/31/20 24 01/31/2024 XR, wrist , 3 or more view No observ ation record ed. [facility] [address] [place], [address], 02/01/2024 09:38:36 01/31/20 24 01/31/2024 XR, hand, 3 or more view No observ ation record ed. [facility] [address] [place], [address], 02/01/2024 09:38:37 08/22/20 24 08/21/2024 XR, lumba r spine No observ ation record ed. [facility] (Radiology) [facility] [place] [address] [place], [address], 08/23/2024 09:38:39 09/28/20 24 09/25/2024 XR, chest , 2 view No observ ation record ed. [facility] [address] [place], [address], 09/28/2024 10:28:32 Result Notes None recorded. 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 Active 2019 Not Available [facility] 09:52:45 Degenerati on of cervical interverte bral disc 59451607 Active 2019 Not Available [facility] 09:52:45 Spinal stenosis in cervical region 80091622 Active 2019 Not Available [facility] 09:52:45 Tendinosis of right shoulder 6170542646244 9100 Active 2019 Not Available [facility] 09:52:45 Cough 22385173 Active 2023 Viji Turner PA-C Attn: Accounting ,[address] [facility], [place], [address] , [place] - [facility] 4 13:07:13 Degenerati on of lumbar interverte bral disc 53575218 Active 2023 Viji Turner PA-C Attn: Accounting ,[address] [place], [address] , [facility] - [facility] 4 14:55:51 Disorder of rotator cuff 286084881 Active Not Available [facility] 09:52:45 Anaphylaxi s 52323174 Active Not Available [facility] 09:52:45 Problem Notes None recorded. Procedures Surgical History Date Name Laterality Status Provider Name and Address Organization Details Recorded Time Appendectomy completed Rita Gil RN [place] 07/08/2016 10:37:36 Imaging Results Imaging Date Name Status LastModified by Organiz ation Details LastModified Time 01/31/2024 XR, wrist, 3 or more view [facility] [address] [place], [address], 02/01/2024 09:38:36 01/31/2024 XR, hand, 3 or more view completed [facility] [address] [place], [address], 02/01/2024 09:38:37 08/21/2024 XR, lumbar spine completed [facility] (Radiology) [address] [place], [address], 08/23/2024 09:38:39 09/25/2024 XR, chest, 2 view completed [facility] [address] [place], [address], 09/28/2024 10:28:32 Procedure Notes None recorded. Medical Equipment None Reported. Allergies Allergen ID Allergen Name Allergen Category Reaction Reaction Severity Criticality Documentation Date Start Date Code Code System Note Provider Name and Address Organization Details Recorded Time 84237 wasp venoms environme nt Not available Not available Not available 07/08/2016 24401 RxNorm Rita Gil RN [facility], [facility] 6 10:37:36 Medications Name Sig Start Date [...] Details Last Updated DateTime 4 175.26 cm 31.1 kg/m2 79300.2 7 g 86 /min 18 /min 94 mm[Hg] 67 mm[Hg] Tosha Hunter LPN [place] - [facility] 4 14:45:34 Date Recorded Body height Body mass index (BMI) Body weight Heart rate Respiratory rate Systolic blood pressure Diastolic blood pressure Provider Name and Address Organization Details Last Updated DateTime 4 175.26 cm 31.1 kg/m2 34713.6 3 g 83 /min 18 /min 124 mm[Hg] 75 mm[Hg] Tosha Hunter LPN [place] [facility] 4 15:16:42 Date Recorded Body height Body mass index (BMI) Body weight Oxygen saturation Oxygen saturation in Arterial blood by Pulse oximetry Heart rate Respiratory rate Systolic blood pressure Diastolic blood pressure Provider Name and Address Organization Details Last Updated DateTime 4 175.26 cm 29.3 kg/m2 98420.4 4 g 98 % 98 % 84 /min 16 /min 126 mm[Hg] 78 mm[Hg] Vivienne Campa MA [facility] 4 13:26:15 Date Recorded Body height Body mass index (BMI) Body weight Oxygen saturation Oxygen saturation in Arterial blood by Pulse oximetry Heart rate Respiratory rate Systolic blood pressure Diastolic blood pressure Provider Name and Address Organization Details Last Updated DateTime 4 175.26 cm 29.1 kg/m2 95241.7 g 97 % 97 % 74 /min 18 /min 116 mm[Hg] 72 mm[Hg] Vivienne Campa MA [facility] 4 13:02:54 Date Recorded Body height Body mass index (BMI) Body weight Heart rate Respiratory rate Systolic blood pressure Diastolic blood pressure Provider Name and Address Organization Details Last Updated DateTime 4 175.26 cm 30 kg/m2 73174.2 5 g 73 /min 18 /min 112 mm[Hg] 70 mm[Hg] Tosha Hunter LPN [facility] 4 14:20:10 Social History Question Answer Notes LastModified by Organizat ion Details LastModified Time Tobacco Smoking Status Current Every Day Smoker Rita Gil RN [facility], [facility] 07/08/2016 10:37:36 Do You Have An Advance [...] not available 01/17/2020 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 10/05/2017 Are There Any [...] Details LastModified Time Maternal Grandmother Heart disease desmond Not available 2015 10:37:36 Maternal Grandfather Heart disease desmond Not available 2015 10:37:36 Medical History Condition Response Coronary Artery Disease N Other N Atrial Fibrillation N High Blood Pressure N Thyroid Problems N Kidney or Bladder Problems N Depression N COPD N Blood Clots N GI Problems N Skin Problems N Eating Disorder N Anemia N Heart Attack (RI) N Diabetes N Anxiety Disorder N Muscle, Joint, or Bone Problems N Seizures/Epilepsy N Acid Reflux (GERD) N Cancer N Stroke N Allergies N Asthma N ADHD N Substance Abuse N High Cholesterol N Hepatitis N Liver Disease N Schizophrenia N Headaches N Osteoporosis N Heart Failure N Gynecological History Statement/Question Response Flow Moderate [...] 30 mcg/0.3 mL dose 1 completed Telisa Muscogee, [employer]NA[employer] null, [place] [facility] 04/22/2023 10:24:05 COVID-19, mRNA, LNP-S, PF, 30 mcg/0.3 mL dose 1 completed Telisa Muscogee, [employer] [place], [place] [facility] 04/22/2023 10:24:05 Tdap 7 completed Telisa Muscogee, [employer]NA[employer] [place], [place] [facility] 04/22/2023 10:24:05 Influenza, split virus, quadrivalent, PF 8 completed Telisa Muscogee, [employer]NA[employer] [place], [place] [facility] 04/22/2023 10:24:05 Influenza, split virus, quadrivalent, PF 09/12/201 7 completed Telisa Muscogee, ANALYST SAL[employer] null, [facility] 04/22/2023 10:24:05 Influenza, split virus, quadrivalent, preservative 3 completed Viji Turner PA-C Attn: Accounting,[address] [facility], [place], [address], [facility] 08/13/2023 10:06:17 Past Encounters Encounter ID Performer Location Encounter Start Date Encounter Closed Date Diagnosis/Indication Diagnosis SNOMED-CT Code Diagnosis ICD10 Code [id number] VINCE Contreras [address] [place] [address] 07/08/2016 10:03:19 07/08/2016 11:23:09 Adult health examination 553470705 Z00.00 Disorder o f rotator cuff 619183126 M75.80 Neck pain 15048781 M54.2 Anaphylaxis 99472017 Z87 .892 Lower abdominal pain 545 97486 R10.30 [id number] VINCE Contreras [address] [place] [address] 09/22/2016 10:21:47 09/22/2016 10:54:20 Eruption 824518752 R21 Lower urin darío tract symptoms 285899201 R39.9 Glossitis 81195804 K14.0 [id number] VINCE Contreras [address] [place] [address] 10/05/2017 14:46:36 10/05/2017 15:54:00 Acute maxillary sinusitis 84539211 J01.00 depression 58 270388 O99.087 [id number] VINCE Contreras [address] [place] [address] 02/18/2018 16:00:54 02/18/2018 16:53:02 Guttate psoriasis 66779962 L40.4 [id number] VINCE Contreras [address] [place] [address] 01/03/2019 15:23:53 01/03/2019 16:12:11 Low back pain 617153408 M54.5 [place] [address] Z30.40 Lumbar radiculopathy 128 166734 M54.16 [id number] VINCE Contreras [address] [place] [address] 01/17/2020 11:26:32 01/17/2020 12:24:24 Injury of tendon of the rotator cuff of shoulder 947658609 S46.001A Chronic neck pain 759645 5494 107 M54.2 Low back pain 347401554 M54.5 Degenerati on of cervical intervertebral disc 35037218 M50.656 [id number] VINCE Contreras [address] [place] [address] 01/19/2020 15:01:37 01/19/2020 15:55:26 Low back strain 267784314 S39.012A [id number] VINCE Contreras [address] [place] [address] 01/29/2020 10:26:48 01/29/2020 11:06:35 Low back strain 649565948 S39.012A Injury of tendon of the rotator cuff of shoulder 430140814 S46.001A Chronic neck pain 635491 5688 107 M54.2 [id number] VINCE Contreras [address] [place] [address] 03/25/2020 14:11:10 03/25/2020 14:48:11 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 Accessory nipple 9312380 7 Q83.3 Injury of tendon of the rotator cuff of shoulder 122534235 S46.001A Degenerati on of cervical intervertebral disc 39326234 M50.931 [id number] VINCE Contreras [address] [place] [address] 07/31/2020 10:39:54 07/31/2020 12:38:13 Suspected COVID-19 231189361 Z03.160 [id number] VINCE Contreras [address] [place] [address] 09/26/2020 08:05:45 09/26/2020 11:05:50 Viral screening 824994035 Z11.59 [id number] VINCE Contreras [address] [place] [address] 11/07/2020 11:24:38 11/07/2020 12:55:04 Lateral epicondylitis of right humerus 4487879197 25596 M77.11 [id number] MD Марина Palomo [address] [place] [address] 01/16/2022 14:07:28 01/16/2022 15:47:34 Pain in coccyx 84343514 M53.3 Hip pain 75334193 M25.55 9 Pain of bi lateral hands 8630274337 5515094 M79.643 Onychomyco sis of toenails 427183250 B35.1 Psoriasis 7222388 L40.9 [id number] VINCE Contreras [facility] [place] [address] 06/08/2022 09:01:35 06/08/2022 10:10:32 Infrapatellar bursitis of right knee 478851758 M70.51 Obesity 167868737 E66.9 [id number] VINCE Contreras [facility] [place] [address] 02/10/2023 15:21:38 02/10/2023 16:13:18 Smoker 01978008 F17.200 Body mass index 30+ - obesity 621734516 Z68.31 Trochanter ic bursitis of left hip 2169404903 06016 M70.62 Acute bronchitis 1866178 2 J20.9 [id number] VINCE Contreras [address] [place] [address] 04/22/2023 10:13:40 04/22/2023 10:36:21 Smoker 68447054 F17.200 Obesity 695296331 E66.9 Psoriasis 6607998 L40.9 Guttate psoriasis 923552 00 L40.4 Depression screening 171 388448 Z13.31 [id number] VINCE Contreras [address] [place] [address] 04/30/2023 12:19:06 04/30/2023 12:40:32 Obesity 892275280 E66.9 Pharyngitis 940823071 J0 2.9 Lesion of oral mucosa 10 18790359 473731 K13.70 [id number] VINCE Contreras [address] [place] [address] 08/12/2023 15:40:36 08/12/2023 16:16:31 Obesity 187667758 E66.9 Smoker 75384861 F17.200 Active or passive immunization 504737347 Z23 Trochanter ic bursitis of left hip 1265102159 79561 M70.62 Depression screening 171 201899 Z13.31 [id number] VINCE Contreras [address] [place] [address] 09/27/2023 13:52:11 09/27/2023 14:44:06 Streptococcal sore throat 72689709 J02.0 Low back pain 640212140 M54.50 [id number] VINCE Contreras [address] [place] [address] 12/15/2023 10:18:07 12/15/2023 11:09:19 Obesity 485812595 E66.9 Smoker 53911080 F17.200 Upper resp iratory infection 68028513 J06.9 Guttate psoriasis 173101 00 L40.4 Depression screening 171 130876 Z13.31 [id number] VINCE Contreras [address] [place] [address] 12/29/2023 11:06:12 12/29/2023 11:53:09 Obesity 568557095 E66.9 Smoker 45519130 F17.200 Pre-surger y evaluation 500267852 Z01.818 Guttate psoriasis 669660 00 L40.4 Depression screening 171 153262 Z13.31 [id number] VINCE Contreras [address] [place] [address] 01/27/2024 10:34:06 01/27/2024 11:20:36 Obesity 410414468 E66.9 Smoker 67102410 F17.200 Varicose v eins of lower extremity 13267162 I83.893 Depression screening 171 120973 Z13.31 [id number] VINCE Contreras [facility] [address] [place] [address] 01/31/2024 14:33:06 01/31/2024 15:09:32 Obesity 097563725 E66.9 Smoker 67335666 F17.200 Fell onto outstretched hand 695530936 W19.XXXA Depression screening 171 195921 Z13.31 [id number] VINCE Contreras [facility] [address] [place] [address] 02/21/2024 14:56:00 02/21/2024 15:26:34 Obesity 006456318 E66.9 Smoker 63164753 F17.200 Pre-surger y evaluation 661136476 Z01.818 Guttate psoriasis 710199 00 L40.4 Herpes zoster 9587303 B0 2.9 [id number] VINCE Contreras [facility] [address] [place] [address] 08/21/2024 13:16:35 08/21/2024 14:05:50 Obesity 066443823 E66.8 Smoker 85496525 F17.200 Guttate psoriasis 405600 00 L40.4 Psoriatic arthritis 1563 58957 L40.50 Chronic low back pain 27 4080672 M54.50 Streptococ shailesh sore throat 41146908 J02.0 [id number] VINCE Contreras [facility] [address] [place] [address] 09/25/2024 12:48:46 09/25/2024 13:34:23 Overweight 443253346 E66.3 Lower resp iratory tract infection 25544079 J22 [id number] VINCE Contreras [address] [place] [address] 11/06/2024 14:14:10 11/06/2024 14:48:29 Overweight 015766770 E66.3 Smoker 39739731 F17.200 Degenerati on of lumbar intervertebral disc 92979458 M51.369 12108278 Z33.1 Health Concerns Section Related Observation LastModified by Organization Detai ls LastModified Time None Recorded Concern Status LastModified by Organization Details LastModified Time None Recorded Advance Directives Directive N: Payers Encounter Date Sequence Insurance Name Policy Number Policy Rodríguez Covered Member ID Rodríguez Member ID Guarantor Name 01/31/2024 1 [facility] ON OR AFTER 05/29/21 (MEDICAID REPLACEMENT - HMO) Chelsea Hays [id number] Chelsea Hays 02/21/2024 1 [facility] ON OR AFTER 05/29/21 (MEDICAID REPLACEMENT - HMO) Chelsea Hays [id number] Chelsea Hays 08/21/2024 1 [facility] ON OR AFTER 05/29/21 (MEDICAID REPLACEMENT - HMO) Chelsea Hays [id number] Chelsea Hays 09/25/2024 1 [facility] ON OR AFTER 05/29/21 (MEDICAID REPLACEMENT - HMO) Chelsea Hays [id number] Chelsea Hays 11/06/2024 1 [facility] ON OR AFTER 05/29/21 (MEDICAID REPLACEMENT - HMO) Chelsea Hays [id number] Chelsea Hays Notes Date Note Type Note Provider Name and Address Organization Details Recorded Time 01/31/2024 text/html 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 reports caught foot on piece of wire in the yard with FOOSH to R hand. reports pain through ulnar wrist and hand dorsum.denies prior significant injury or surgery to this area. Viji Turner PA-C Attn: Accounting,[address] [facility], [place], [address], [facility] - [facility] 02/02/2024 12:18:42 02/21/2024 text/html pt presents for preoperative H and P. has plan for R distal clavicle resection with Dr. Perez in [facility] on 02/23. endorses rash. pt reports third day of painful rash to R anterolateral lower chest. reports burning pain sensation here that intermittently wraps around lateral and posterior chest in a band. reports has had shingles in this location two other times in her 20s. otherwise feels she is in her usual state of health today. Pt denies fever, chills, headaches, syncope, chest pain, shortness of breath, abdominal pain, NVD Viji Turner PA-C Attn: Accounting,[address] [place], [address], [facility] 02/21/2024 15:41:57 08/21/2024 text/html Pt presents for UC f/u as well as for evaluation of chronic low back pain.seen in UC for sore throat 3 days ago and rapid strep positive and started on amoxil. stated as gradually improving.pt concerned for psoriatic arthritis to ankles, hips and low back. is on otezla for psoriasis with benefit to skin but not so for joint pain. pt interested in rheumatology referral. Viji Turner PA-C Attn: Accounting,[address] [place], [address], [facility] 08/21/2024 15:02:06 09/25/2024 text/html reports 4th day of cough, rhinitis, sore throat, fatigue, subjective fever, MITCHELL. denies myalgias, NVD, otalgia. Viji Turner PA-C Attn: Accounting,[address] [place], [address], [facility] 09/26/2024 12:31:33 11/06/2024 text/html today reports on week of acute on chronic low back pain at midline. feels uncomfortable pressure sensation with sudden excruciating severe pain with certain positioning. denies numbness, tingling, or radiation of pain to perineum or BLE. Viji Turner PA-C Attn: Accounting[address] [place], [address], [facility] 11/06/2024 14:58:34 OBGyn Episode No OBEpisode recorded.
--- OUTSIDE RECORDS SUMMARY | 2024-11-28 06:07 | XMS_ITS | Continuity of Care Document ---
Author Organization [facility] Address [address] [place] [address] Care Team Providers Care Television Parts Tester Name Role Phone VIJI TURNER Primary Care Provider JOSAFAT Marion [employer] Plant Superintendent [phone] Assessment No assessment recorded. Plan of Treatment Reminders Order Date Submit Date Provider Last Modified By Organization Details Last Modified Time Details Appointments None recorded. Lab None recorded. Referral None recorded. Procedures None recorded. Surgeries None recorded. Imaging XR, chest, 2 view 2023 [facility] (Registration ), [address] [place], [address], 09:43:37 Medication Orders azithromyci n 250 mg tablet 2023 [facility] [address] [place], [address], 13:32:54 albuterol sulfate HFA 90 mcg/actuati on aerosol inhaler 2023 [facility] [address] [place], [address], 13:28:57 Patient TargetsNo targets recorded. Patient Instructions Encounter Date Encounter Id Patient Instructions Last Modified By Organization Details Last Modified Time 09/25/2024 [id number] A healthy lifestyle: care instructions [email or web address] Not available 09/25/2024 13:07:35 Reason for Referral None Reported. Results Created Date Observation Date Name Description Value Unit Range Abnormal Flag Note LastModifiedBy Organization Detail LastModifiedTime 09/28/20 24 09/25/2024 XR, chest , 2 view No observ ation record ed. [address], [address], 09/28/2024 10:28:32 Result Notes None recorded. Problems Name Problem SNOMED Code Status Onset Date Resolution Date Notes Provider Name and Address Organization Details Recorded Time Accessory nipple 01095592 Active 2019 Not Available [facility] 09:52:45 Degenerati on of cervical interverte bral disc 16778927 Active 2019 Not Available [facility] 09:52:45 Spinal stenosis in cervical region 95808871 Active 2019 Not Available [facility] 09:52:45 Tendinosis of right shoulder 7195093192901 9100 Active 2019 Not Available [facility] 1 09:52:45 Cough 26790052 Active 2023 Viji Turner PA-C Attn: Accounting ,[address] [facility], [place], [address] , [facility] - [facility] 4 13:07:13 Degenerati on of lumbar interverte bral disc 95231501 Active 2023 Viji Turner PA-C Attn: Accounting ,[address] [place], [address] , [facility] - [facility] 4 14:55:51 Disorder of rotator cuff 292126868 Active Not Available [facility] 09:52:45 Anaphylaxi s 67516833 Active Not Available [facility] 09:52:45 Problem Notes None recorded. Procedures Surgical History Date Name Laterality Status Provider Name and Address Organization Details Recorded Time Appendectomy completed Rita Gil RN [place] - [place] 07/08/2016 10:37:36 Imaging Results None recorded. Procedure Notes None recorded. Medical Equipment None Reported. Allergies Allergen ID Allergen Name Allergen Category Reaction Reaction Severity Criticality Documentation Date Start Date Code Code System Note Provider Name and Address Organization Details Recorded Time 01164 wasp venoms environme nt Not available Not available Not available 07/08/2016 79561 RxNorm Rita Gil RN [facility], [place] - [facility] 6 10:37:36 Medications Name Sig Start Date [...] completed Not Available Not Available Not Available June12/18 (28) 1 mg-20 mcg (21)/75 mg (7) [...] Updated DateTime 4 175.26 cm 29.1 kg/m2 74172.7 g 97 % 97 % 74 /min 18 /min 116 mm[Hg] 72 mm[Hg] Vivienne Campa MA [facility] 4 13:02:54 Social History Question Answer Notes LastModified by Organizat ion Details LastModified Time Tobacco Smoking Status Current Every Day Smoker Rita Gil RN [facility], [facility] 07/08/2016 10:37:36 Do You Have An [...] not available 01/17/2020 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 Information not available 10/05/2017 Are There Any [...] Details LastModified Time Maternal Grandmother Heart disease edda Not available 2015 10:37:36 Maternal Grandfather Heart disease edda Not available 2015 10:37:36 Medical History Condition Response Coronary Artery Disease N Other N Atrial Fibrillation N High Blood Pressure N Thyroid Problems N Kidney or Bladder Problems N GI Problems N Depression N COPD N Blood Clots N Eating Disorder N Skin Problems N Anemia N Heart Attack (PR) N Anxiety Disorder N Diabetes N Muscle, Joint, or Bone Problems N Seizures/Epilepsy N Acid Reflux (GERD) N Cancer N Stroke N Asthma N Allergies N ADHD N Substance Abuse N High Cholesterol N Hepatitis N Liver Disease N Schizophrenia N Headaches N Heart Failure N Osteoporosis N Gynecological [...] 30 mcg/0.3 mL dose 1 completed Telisa Crockett, HUMAN RESOURCES BENEFITS SPECIALIST null, [place] - [facility] 04/22/2023 10:24:05 COVID-19, mRNA, LNP-S, PF, 30 mcg/0.3 mL dose 1 completed Telisa Crockett, HUMAN RESOURCES BENEFITS SPECIALIST [place], [place] [facility] 04/22/2023 10:24:05 Tdap 7 completed Telisa Crockett, HUMAN RESOURCES BENEFITS SPECIALIST [place], [place] [facility] 04/22/2023 10:24:05 Influenza, split virus, quadrivalent, PF 8 completed Telisa Crockett, HUMAN RESOURCES BENEFITS SPECIALIST [place], [place] [facility] 04/22/2023 10:24:05 Influenza, split virus, quadrivalent, PF 7 completed Telisa Crockett, HUMAN RESOURCES BENEFITS SPECIALIST [place], [place] [facility] 04/22/2023 10:24:05 Influenza, split virus, quadrivalent, preservative 3 completed Viji Turner PA-C Attn: Accounting,[address] [place], [address], [place] [facility] 08/13/2023 10:06:17 Past Encounters Encounter ID Performer Location Encounter Start Date Encounter Closed Date Diagnosis/Indication Diagnosis SNOMED-CT Code Diagnosis ICD10 Code [id number] VINCE Contreras [address] [place] [address] 09/25/2024 12:48:46 09/25/2024 13:34:23 Overweight 482203247 E66.3 Lower resp iratory tract infection 86992864 J22 Health Concerns Section Related Observation LastModified by Organization Detai ls LastModified Time None Recorded Concern Status LastModified by Organization Details LastModified Time None Recorded Payers Encounter Date Sequence Insurance Name Policy Number Policy Rodríguez Covered Member ID Rodríguez Member ID Guarantor Name 09/25/2024 1 [facility] - DOS ON OR AFTER 21 (MEDICAID REPLACEMENT - HMO) Chelsea Hays [id number] Chelsea Hays Notes Date Note Type Note Provider Name and Address Organization Details Recorded Time 09/25/2024 text/html reports 4th day of cough, rhinitis, sore throat, fatigue, subjective fever, MITCHELL. denies myalgias, NVD, otalgia. Viji Turner PA-C Attn: Accounting,[address] [place], [address], [facility] 09/26/2024 12:31:33 OBGyn Episode No OBEpisode recorded.
== END 2024-11-21 08:06 | disposition home or self-care (01) ==
PROVIDERS: PCP Student in an Organized Health Care Education/Training Program; Visit Provider Student in an Organized Health Care Education/Training Program
DX: G89.18 Other acute postprocedural pain (principal); R93.5 Abnormal findings on diagnostic imaging of other abdominal regions, including retroperitoneum
CPT/HCPCS: 76830; 76856

== ENCOUNTER 2025-07-09 14:08 | Outpatient (CLI) | payer OTHER, SELFPAY ==
[2025-07-09] VITALS (20 sets, daily range): BP systolic 88–120; BP diastolic 40–61; PULSE 66–79; O2SAT 95–100; BMI 33.0
--- OUTSIDE RECORDS SUMMARY | 2025-07-09 14:29 | XMS_ITS | Clinical Summary ---
Author Organization [facility] Address [address] [facility] [place] [address] Care Team Providers Care Recruiter Account Manager Name Role Phone Toni Melendez MD Primary Care Provider [phone] Source Comments [facility],non-owned Affiliates and Associated Physician Practices is amultiple site organization consisting of ambulatory clinics and hospital sitesin [place], [place], [place] and [place]. This disclosure is being madepursuant to the Care Everywhere program and may not contain all information available regarding this patient. Last updated 18.[facility] Allergies No known active allergies Medications * Be aware that medications may not be up to date on this document. Alwaysverify current medications with the patient. Vit-DSS-Fe Fum-FA ( vitamin with iron) tablet Take 1 (one) tablet by mouth once daily Active Active Problems Problem Noted Date Diagnosed Date Antepartum multigravida of advanced maternal age 0504/04/2025 Smoker 04/04/2025 Herpes 04/04/2025 Mild intermittent asthma without complication [facility] 04/04/2025 Encounter for nuchal translucency testing 2013 Prior with congenital cardiac defect, antepartum 09/04/2014 Estimated Date of Delivery Comme nts Yes 10/17/2025 Based on last me nstrual period of 01/10/2025 Resolved Problems Problem Noted Date Diagnosed Date Resolved Date Encounter for routine screen ing for malformation using ultrasonics 12/13/2014 Encounter for supervision of other normal 09/04/2014 04/04/2025 Overview (10/06/2015): Encounters Date Type Department Care Team Description 06/25/2025 9:45 AM CDT - 06/25/2025 11:59 PM CDT Hospital Encounter [facility] [address] [place] [address] Yamilka Leroy MD Discharge Disposition: Home or Self Care 05/29/2025 1:45 PM CDT - 05/29/2025 11:59 PM CDT Hospital Encounter [facility] [address] [place] [address] Lili Roman MD Discharge Disposition: Home or Self Care 05/29/2025 Travel 04/11/2025 Telephone [facility] [address] [place] [phone] Sasha Marin RN Results (NIPT) from Last 3 Months Social History Tobacco Use Types Packs/Day Years Used Date Smoking Tobacco: Every Day Cigarettes 0.5 10 Tobacco Cessation:Ready to Q uit: Not Asked; Counseling Given: Not Answered Alcohol Use Standard Drinks/Week Comments Not Currently 0 (1 standard drink = 0.6 oz pur e alcohol) Estimated Date of Delivery Comme nts Yes 10/17/2025 Based on last me nstrual period of 01/10/2025 Sex and Gender Information Value Date Recorded Sex Assigned at Not on file Legal Sex Female 5:33 AM CHARTER PILOT Gender Identity Female 04/21/2018 2:50 PM CDT Sexual Orientation Not on file Last Filed Vital Signs Vital Sign Reading Time Taken Comments Blood Pressure 106/54 04/04/2025 8:37 AM CDT Pulse 66 04/04/2025 8:37 AM CDT Temperature - - Respiratory Rate - - Oxygen Saturation - - Inhaled Oxygen Concentration - - Weight 99.8 kg (220 lb) 04/04/2025 8:37 AM CDT Height 177.8 cm (5' 10) 04/04/2025 8:37 AM CDT Body Mass Index 31.57 04/04/2025 8:37 AM CDT Plan of Treatment Upcoming Encounters Date Type Department Care Team (Late st Contact Info) Description 07/23/2025 11:15 AM CDT Appointment [facility] [address] [place] [address] Health Maintenance Due Date Last Done Comments LIPID TESTING 1984 MAMMOGRAM 1984 HIV SCREENING 1999 HEPATITIS C SCREENING 04/20/2002 DTAP/TDAP/TD VACCINES (1 - Tdap) 2003 HEPATITIS B VACCINE (1 of 3 - 19+ 3-dose series) 2003 PNEUMOCOCCAL VACCINE (1 of 2 - PCV) 2003 PAP SMEAR 2005 HPV VACCINE (1 - 3-dose SCDM series) 2011 COVID-19 VACCINE (3 - 2023-2 5 season) 2024 2021, 12/31/2020 DEPRESSION SCREENING 11/29/2024 SCREENING FOR DIABETES 2025 OB-ONE HOUR GLUCOSE 07/11/2025 OB-TDAP CURRENT 07/18/2025 08/10/2017 OB-RHOGAM INJECTION 07/25/2025 INFLUENZA VACCINE (#1) 2025 8, 08/10/2017 Respiratory Syncytial Virus (RSV) Vaccine Pt: or over 60 yrs (1 - Risk 1-dose series) 08/22/2025 ZOSTER VACCINE (1 of 2) 2034 HIB VACCINE Aged Out No longer eligi ble based on patient's age to complete this topic MENINGOCOCCAL (Group B) VACCINE SHARED DECISION-MAKING Aged Out No longer eligible based on patient's age to complete this topic MENINGOCOCCAL GROUPS A/C/Y/W VACCINE Aged Out No longer eligible b ased on patient's age to complete this topic Procedures Procedure Name Priority Date/Time Associated Diagnosis Comments SONOGRAM - COMPLETE Routine 06/25/2025 9:53 AM CDT Advanced maternal age in multigravida, first trimester (HCC) Encounter to establish gestational age using ultrasound (HCC) Obesity in (HCC) 22 weeks gestation of ([facility]) Encounter for nuchal translucency testing ([facility]) Prior with congenital cardiac defect, antepartum (HCC) SONOGRAM - COMPLETE Routine 05/29/2025 1:43 PM CDT Antepartum multigravida of advanced maternal age (HCC) 12 weeks gestation of (HCC) Smoker Herpes Mild intermittent asthma without complication (HCC) Ninth ([facility]) from Last 3 Months Results * Sonogram - Complete (06/25/2025 9:53 AM CDT) Only the most recent of2 resultswithin the time period is included. Linked Results Indication ======== Advanced maternal age (AMA), multigravida Maternal obesity complicating , class 1 (BMI 30.0 - 34.9) History ====== OB History 9. Para 7 [id number] 1. live 2002. Gest. age 42 w + 0 d. Weight 3,827 g. Sex of child: female. Details: 2. live 2004. Gest. age 39 w + 0 d. Weight 4,082 g. Sex of child: male. Details: 3. live 2012. Gest. age 41 w + 0 d. Weight 3,883 g. Sex of child: female. Details: 4. live 2014. Gest. age 39 w + 0 d. Weight 3,628 g. Sex of child: female. Details: 5. live 2016. Gest. age 39 w + 0 d. Weight 3,798 g. Sex of child: male. Details: 6. live 2018. Gest. age 39 w + 0 d. Weight 4,450 g. Sex of child: female. Details: 7. live 2019. Gest. age 39 w + 0 d. Weight 5,159 g. Sex of child: female. Details: 8. miscarriage 2023 Lab Tests Test Date Result NIPT Low risk, Male Maternal Assessment Physical Exam Height 175 cm, 5 ft 9 in. Weight 101 kg, 222 lb. Initial weight 99 kg, 218 lb. BMI 32.78 kg/m . Initial BMI 32.19 kg/m . Weight gain 2 kg, 4 lb Method ====== Transabdominal ultrasound. View: Sufficient ========= Brasher . Number of fetuses: 1 Dating ====== Date Details Gest. age NINA LMP 01/10/2025 23 w + 5 d 10/17/2025 U/S 06/25/2025 based upon AC, BPD, Femur, HC 24 w + 5 d 10/10/2025 Assigned dating based on the LMP, selected on 05/29/2025 23 w + 5 d 10/17/2025 General Evaluation Cardiac activity present. FHR 149 bpm. Presentation: cephalic Placenta: Placental site: fundal Amniotic fluid: Amount of AF: normal. MVP 6.4 cm Biometry BPD 59.4 mm 24w 2d 64% Hadlock HC 216.7 mm 23w 5d 33% Hadlock AC 211.8 mm 25w 5d 92% Hadlock Femur 45.5 mm 25w 0d 79% Hadlock Humerus 42.7 mm 25w 4d 91% Aide HC / AC 1.02 Weight Calculation: EFW 781 g 95% Hadlock EFW (lb,oz) 1 lb 12 oz EFW by Hadlock ([id number]) LGA Growth Overview Exam date GA BPD (mm) HC (mm) AC (mm) FL (mm) HL (mm) EFW (g) 05/29/2025 19w 6d 48 76% 169.3 28% 164.7 90% 33.3 63% 32.4 87% 382 92% 06/25/2025 23w 5d 59.4 64% 216.7 33% 211.8 92% 45.5 79% 42.7 91% 781 95% Anatomy The following structures appear normal: Abdomen Stomach. Kidneys. Bladder. Impression ========= Single, live, intrauterine at 23w5d The size is LGA The amniotic fluid volume is normal No major malformations were seen within the limits of ultrasound Comment ======== ultrasound alone cannot detect all structural, genetic, or functional , placental, or maternal abnormalities Follow-up ======== Follow up ultrasound in 4 weeks for serial size assessment Coding ====== Procedures 30097: US Preg Uterus Follow Up [employer] PACS Anatomical Region Laterality Modality Other 06/25/2025 9:53 AM CDT us Toni Melendez MD [facility] ORDERABLES Edited Result - Final from Last 3 Months Insurance [facility] MED[facility] - [place] Care Teams Recruiter Account Manager Relationship Specialty Start Date End Date Toni Melendez MD [address] [place] [id number] PCP - General Obstetrics and Gynecology 05/20/17
--- OUTSIDE RECORDS SUMMARY | 2025-07-09 14:29 | XMS_ITS | Clinical Summary ---
Author Organization [facility] Address [address] [place] [address] Care Team Providers Care Consumer Marketing Analyst Name Role Phone Unavailable Primary Care [...] of 3 - 19+ 3-dose series) 2003 HPV Vaccines (1 - 3-dose SCD M series) 2011 Cervical Cancer Screening Pa p with HPV Testing (Age 30 to 64) Every 5 Years 2014 Cervical Cancer Screening with HPV 2014 Mammogram Screening 2024 COVID-19 Vaccine (2023-2 5 season) 2024 Meningococcal B Vaccine Aged Out No l onger eligible based on patient's age to complete this topic Meningococcal Vaccine Aged Out No stepan isaac eligible based on patient's age to complete this topic Pneumococcal Vaccine: Pediat rics (0 to 5 Years) and At-Risk Patients (6 to 49 Years) Aged Out No longer eligible b ased on patient's age to complete this topic RSV Immunizations Under 20 Months Aged Out No longer eligible based on patient's age to complete this topic
[2025-07-09 15:12] LABS: Hematocrit 29.9 % (37.0-47.0); Hemoglobin 10.0 g/dL (12.0-15.0); Immature Granulocyte Percent A 0.8 % (0-0.5); Lymphocytes Absolute Auto 1.75 K/mm3 (0.9-3.2); Mean Corpuscular HGB Conc 33.4 g/dl (32-36); Mean Corpuscular Hemoglobin 30.9 pg (26-34); Mean Corpuscular Volume 92.3 fl (80-100); Nucleated Red Blood Cells Absolute Auto 0.000 K/mm3 (0.0-0.012); Nucleated Red Blood Cells Perc 0.0 % (0.0-0.2); Platelet Count Result 153 k/mm3 (150-375); Red Blood Count 3.24 M/mm3 (4.2-5.4); White Blood Count 9.9 K/mm3 (4.5-10.0)
[2025-07-09 15:30] LABS: Add Urine Microscopic? YES; Appearance Urine Clear (Clear); Glucose Urine UA Negative (Negative); Leukocyte Esterase Ur 1+ LEU/UL (Negative); Need Manual Microscopic Reviewed; Nitrate Urine Negative (Negative); Specific Grav Ur 1.018 (1.001-1.035)
[2025-07-09 15:37] LABS: Alanine Aminotransferase 12 U/L (6-35); Albumin Level 3.4 g/dL (3.5-5.1); Alkaline Phosphatase 65 U/L (38-126); Anion Gap 6 mmol/L (4-12); Aspartate Amino Transferase 23 U/L (14-36); Bilirubin,Total 0.2 mg/dL (0.2-1.3); Blood Urea Nitrogen 5 mg/dL (7-17); Calcium 8.7 mg/dL (8.4-10.2); Carbon Dioxide 21 mmol/L (22-30); Chloride 107 mmol/L (98-107); Estimated Glomerular Filt Rate > 60; Glucose 102 mg/dL (65-110); Potassium 3.4 mmol/L (3.4-5.0); Sodium 134 mmol/L (137-145); Total Protein 6.4 g/dL (6.3-8.2); Uric Acid 3.2 mg/dL (2.5-7.5)
--- NOTE | 2025-07-09 16:31 | NBIDPHOTO ---
PHOTO ONLY - See Nursing Notes and/ or assessments for documentation.
--- NOTE | 2025-07-09 16:31 | PC.NURSE ---
07/090- notified Dr. zhang of pt arrival and c/o. ok to d/c at this time.
[2025-07-09 16:55] LABS: Total Protein Urine Random 8 mg/dL; Ur Ttl Prot Creatinine Ratio 0.04 mg/mg (0-0.20)
== END 2025-07-09 16:45 | disposition home or self-care (01) ==
LOC: ANHOBOP 14:13 → ANHOBPP 14:16
PROVIDERS: Visit Provider Obstetrics & Gynecology
DX: O13.9 Gestational [pregnancy-induced] hypertension without significant proteinuria, unspecified trimester (principal); Z3A.00 Weeks of gestation of pregnancy not specified
CPT/HCPCS: 36415; 59025; 80053; 81001; 82570; 84156; 84550; 85025; 99199

== ENCOUNTER 2025-08-24 11:49 | Outpatient (CLI) | payer OTHER, SELFPAY ==
[2025-08-24 13:09] LABS: Hematocrit 28.5 % (37.0-47.0); Hemoglobin 9.5 g/dL (12.0-15.0); Immature Granulocyte Percent A 1.0 % (0-0.5); Lymphocytes Absolute Auto 1.90 K/mm3 (0.9-3.2); Mean Corpuscular HGB Conc 33.3 g/dl (32-36); Mean Corpuscular Hemoglobin 30.2 pg (26-34); Mean Corpuscular Volume 90.5 fl (80-100); Nucleated Red Blood Cells Absolute Auto 0.000 K/mm3 (0.0-0.012); Nucleated Red Blood Cells Perc 0.0 % (0.0-0.2); Platelet Count Result 191 k/mm3 (150-375); Red Blood Count 3.15 M/mm3 (4.2-5.4); White Blood Count 11.1 K/mm3 (4.5-10.0)
[2025-08-24 13:36] LABS: Glucose 1 Hour PP 50gm Dose 174 mg/dL
[2025-08-24 14:01] LABS: Syphilis IgG/IgM Antibody Non-Reactive (Nonreactive)
[2025-08-24 14:14] LABS: HIV 1/2 Ab P24 Ag Result Negative (Negative)
== END 2025-08-24 11:50 | disposition home or self-care (01) ==
LOC: ANHLAB 11:49
PROVIDERS: Visit Provider Obstetrics & Gynecology
DX: Z34.90 Encounter for supervision of normal pregnancy, unspecified, unspecified trimester (principal)
CPT/HCPCS: 36415; 82947; 85025; 86593; 86703; G0432

== ENCOUNTER 2025-08-31 08:47 | Outpatient (CLI) | payer OTHER, SELFPAY ==
--- OUTSIDE RECORDS SUMMARY | 2025-08-31 09:01 | XMS_ITS | Clinical Summary ---
Author Organization [facility] Address [address] [place] [address] Care Team Providers Care Chief School Finance Officer Name Role Phone Unavailable Primary Care Provider [...] Screening 2024 COVID-19 Vaccine (2023-2 5 season) 2025 Meningococcal B Vaccine Aged Out No l [...]
--- OUTSIDE RECORDS SUMMARY | 2025-08-31 09:01 | XMS_ITS | Clinical Summary ---
Author Organization [facility] Address [address] [place] [address] Care Team Providers Care Finishing Machine Operator Automatic Name Role Phone Toni Melendez MD Primary Care Provider [phone] Source Comments [facility],non-owned Affiliates and Associated Physician Practices is amultiple site organization consisting of ambulatory clinics and hospital sitesin [place], [place], [place] and [place]. This disclosure is being madepursuant to the Care Everywhere program and may not contain all information available regarding this patient. Last updated 18.SocialTagg Allergies No known active allergies Medications * Be aware that medications may not be up to date on this document. Alwaysverify current medications with the patient. Vit-DSS-Fe Fum-FA ( vitamin with iron) tablet Take 1 (one) tablet by mouth once daily Active Active Problems Patient Care Coordination No te Formatting of this note migh t be different from the original. HEART PATIENT See Plan of Care in Problem List Problem Noted Date Diagnosed Date Encounter for screenin g for congenital cardiac abnormalities 08/23/2025 Overview (08/23/2025): Images from the original note were not included. HEART PATIENT -- SEE CARDIOLOGY CONSULT Care Provider: Dr. Toni Melendez Egg Packer Involved: Dr. Blanca Mendoza Diagnosis: No evidence of congenital heart disease; Increased doppler in ductus arteriosus (pk 1.4 m/s) Date of last echocardiogram: 08/20/2025 Planned Delivery Location: follow up: If delivering at [facility] recommend echocardiogram prior to discharge from nursery; If delivery at local hospital, recommend Cardiology evaluation at two weeks of age Care plan based on evaluation and is subject to change based on assessment. See Cardiac under Chart Review for ECHO report(s) Antepartum multigravida of advanced maternal age 0504/04/2025 [...] Encounters Date Type Department Care Team Description 08/28/2025 10:30 AM CDT - 08/28/2025 11:59 PM CDT Hospital Encounter [facility] [address] [place] [phone] Latosha Chin MD HANDMADE TILE ARTIST Discharge Disposition: Home or Self Care 08/24/2025 3:15 PM CDT Hospital Encounter [facility] [address] [place] [phone] Latosha Chin MD Discharge Disposition: Home or Self Care 08/24/2025 3:15 PM CDT Hospital Encounter [facility] [address] [place] [phone] Latosha Chin MD HANDMADE TILE ARTIST Discharge Disposition: Home or Self Care 08/20/2025 11:15 AM CDT Hospital Encounter [facility] [place] [address] [place] [phone] Blanca Mendoza MD Pediatric Cardiology Discharge Disposition: Home or Self Care 08/20/2025 11:15 AM CDT Hospital Encounter [address] [address] Blanca Mendoza MD Discharge Disposition: Home or Self Care 08/02/[address] [address] Nina Castelan Appointment 08/01/[address] [address] Nina Castelan Appointment 07/23/2025 10:52 AM CDT - 07/23/2025 11:59 PM CDT Hospital Encounter [facility] [address] [place] [phone] Yamilka Leroy MD Discharge Disposition: Home or Self Care 07/18/[address] [address] Nina Castelan Appointment 06/25/2025 9:45 AM CDT - 06/25/2025 11:59 PM CDT Hospital Encounter [facility] [address] [place] [phone] Yamilka Leroy MD Discharge Disposition: Home or Self Care from Last 3 Months Social History Tobacco [...] on file Legal Sex Female 5:33 AM PROOF CLERK Gender Identity Female 04/21/2018 2:50 PM CDT Sexual Orientation Not on file Last Filed Vital Signs Vital Sign Reading Time Taken Comments Blood Pressure 114/65 08/28/2025 11:12 AM CDT Pulse 77 08/28/2025 11:12 AM CDT Temperature - - Respiratory Rate - - Oxygen Saturation - - Inhaled Oxygen Concentration - - Weight 99.8 kg (220 lb) 04/04/2025 8:37 AM CDT Height 177.8 cm (5' 10) 04/04/2025 8:37 AM CDT Body Mass Index 31.57 04/04/2025 8:37 AM CDT Plan of Treatment Upcoming Encounters Date Type Department Care Team (Late st Contact Info) Description 09/04/2025 2:30 PM CDT Hospital Encounter [facility] [address] [place] [phone] 09/11/2025 2:30 PM CDT Appointment [facility] [address] [place] [phone] 09/18/2025 2:30 PM CDT Appointment [facility] [address] [place] [phone] 09/25/2025 2:30 PM CDT Appointment [facility] [address] [place] [phone] 10/02/2025 2:30 PM PROOF CLERK Appointment [facility] [address] [place] [phone] 10/09/2025 2:30 PM PROOF CLERK Appointment [facility] [address] [place] [phone] 10/16/2025 2:30 PM PROOF CLERK Appointment [facility] [address] [place] [phone] Health Maintenance Due Date Last Done Comments LIPID TESTING 1985 MAMMOGRAM 1984 HIV SCREENING 1999 HEPATITIS C SCREENING 04/20/2002 DTAP/TDAP/TD VACCINES (1 - Tdap) 2003 HEPATITIS B VACCINE (1 of 3 - 19+ 3-dose series) 2003 PNEUMOCOCCAL VACCINE (1 of 2 - PCV) 2003 PAP SMEAR 2005 HPV VACCINE (1 - 3-dose SCDM series) 2011 DEPRESSION SCREENING 11/29/2024 SCREENING FOR DIABETES 2025 OB-ONE HOUR GLUCOSE 07/11/2025 OB-TDAP CURRENT 07/18/2025 08/10/2017 OB-RHOGAM INJECTION 07/25/2025 COVID-19 VACCINE (3 - 2024-2 6 season) 2025 2021, 12/31/2020 INFLUENZA VACCINE (#1) 2025 , 08/08/2018, 08/10/2017 Respiratory Syncytial Virus (RSV) Vaccine Pt: [...] Procedure Name Priority Date/Time Associated Diagnosis Comments BIOPHYSICAL PROFILE W NST Routine 08/28/2025 11:23 AM CDT AMA (advanced maternal age) multigravida 35+, third trimester (HCC) Obesity in (HCC) Smoker 32 weeks gestation of (HCC) Encounter for other screening follow-up (HCC) SONOGRAM - COMPLETE Routine 08/24/2025 3 :23 PM CDT Advanced maternal age in multigravida, first trimester (HCC) Obesity in (HCC) Encounter for ultrasound to assess growth (HCC) Smoker 31 weeks gestation of (HCC) Large for dates affecting management of mother, second trimester, other fetus (HCC) Prior with congenital cardiac defect, antepartum (HCC) ECHO COMPLETE CG Routine 08/20/2025 12:10 PM CDT Prior with congenital cardiac defect, antepartum ([facility]) SONOGRAM - COMPLETE Routine 07/23/2025 1 1:41 AM CDT Obesity in ([facility]) Encounter for ultrasound to assess growth ([facility]) Smoker 27 weeks gestation of ([facility]) SONOGRAM - COMPLETE Routine 06/25/2025 9 :53 AM CDT Advanced maternal age in multigravida, first trimester ([facility]) Encounter to establish gestational age using ultrasound ([facility]) Obesity in ([facility]) 22 weeks gestation of ([facility]) Encounter for nuchal translucency testing ([facility]) Prior with congenital cardiac defect, antepartum ([facility]) from Last 3 Months Results * Biophysical Profile w NST (08/28/2025 11:23 AM CDT) Linked Results Indication ======== Large for dates Polyhydramnios Advanced maternal age (AMA), multigravida Maternal obesity complicating , class 1 (BMI 30.0 - 34.9) History ====== OB History 9. Para 7 [id number] 1. live 2002. Gest. age 42 w [...] Sex of child: female. Details: 7. live 2018. Gest. age 39 w + 0 d. Weight 5,159 g. Sex of child: female. Details: 8. miscarriage 2023 Lab Tests Test Date Result NIPT Low risk, Male Maternal Assessment Physical Exam Height 175 cm, 5 ft 9 in. Initial weight 99 kg, 218 lb. Initial BMI 32.19 kg/m Method ====== Transabdominal ultrasound, Transabdominal ultrasound examination. View: Limited by late gestational age, position, and maternal body habitus ========= Brasher . Number of fetuses: 1 Dating ====== Date Details Gest. age NINA LMP 01/10/2025 32 w + 6 d 10/17/2025 Assigned dating based on the LMP, selected on 05/29/2025 32 w + 6 d 10/17/2025 General Evaluation Cardiac activity present. FHR 143 bpm. Presentation: transverse, head maternal right Placenta: Placental site: anterior Amniotic Fluid Assessment === Amount of AF: polyhydramnios MVP 9.2 cm. MENDOZA 29.7 cm. Q1 9.2 cm, Q2 6.1 cm, Q3 6.6 cm, Q4 7.8 cm Biophysical Profile 2: breathing movements 2: Gross body movements 2: tone 2: Amniotic fluid volume NST: reactive 10/10 Biophysical profile score Non Stress Test NST interpretation: reactive. Baseline FHR 130 bpm. Baseline variability: moderate. Accelerations: present. Decelerations: absent. Uterine activity: absent Growth Overview Exam date GA BPD (mm) HC (mm) AC (mm) FL (mm) HL (mm) EFW (g) 05/29/2025 19w 6d 48 76% 169.3 28% 164.7 90% 33.3 63% 32.4 87% 382 92% 06/25/2025 23w 5d 59.4 64% 216.7 33% 211.8 92% 45.5 79% 42.7 91% 781 95% 07/23/2025 27w 5d 73.4 88% 269.1 72% 263.4 98% 53.7 58% 52.8 99% 1429 96% 08/24/2025 32w 2d 88.3 >99% 327.7 >99% 327.4 >99% 65.1 72% 62.3 >99% 2779 >99% Anatomy The following structures appear normal: Abdomen Stomach. Kidneys. Bladder. Impression ========= Single, live, intrauterine at 32w 6d. The amniotic fluid volume is polyhydramnios. The biophysical profile is 10/10. Comment ======== ultrasound alone cannot detect all structural, genetic, or functional , placental, or maternal abnormalities. Follow-up ======== Continue weekly testing. Coding ====== Diagnoses O36.63X0: Maternal care for excessive growth O99.213, E66.811: Obesity complicating , class 1 (BMI 30.0 - 34.9) O09.523: Supervision of elderly multigravida O36.63X0: Maternal care for excessive growth O99.213, E66.811: Obesity complicating , class 1 (BMI 30.0 - 34.9) O09.523: Supervision of elderly multigravida Procedures 27564: [place] Uterus Limited 98084: Biophysical Profile W NST [facility] [email or web address] PACS Anatomical Region Laterality Modality Other 08/28/2025 11:2 3 AM CDT Toni Melendez MD [facility] ORDERABLES Edited Result - Final * Sonogram - Complete (08/24/2025 3:23 PM CDT) Only the most recent of3 resultswithin the time period is included. Linked Results Indication ======== Large for dates Advanced maternal age (AMA), multigravida Maternal obesity complicating , class 1 (BMI 30.0 - 34.9) History ====== OB History 9. Para 7 [id number] 1. live 2002. Gest. age 42 w [...] Sex of child: male. Details: 6. live 2017. Gest. age 39 w + 0 d. Weight 4,450 g. Sex of child: female. Details: 7. live 2019. Gest. age 39 w + 0 d. Weight 5,159 g. Sex of child: female. Details: 8. miscarriage 2023 Lab Tests Test Date Result NIPT Low risk, Male Maternal Assessment Physical Exam Height 175 cm, 5 ft 9 in. Weight 105 kg, 232 lb. Initial weight 99 kg, 218 lb. BMI 34.26 kg/m . Initial BMI 32.19 kg/m . Weight gain 6 kg, 14 lb Method ====== Transabdominal ultrasound. View: Limited by late gestational age, maternal body habitus, and position. ========= Brasher . Number of fetuses: 1 Dating ====== Date Details Gest. age NINA LMP 01/10/2025 32 w + 2 d 10/17/2025 Assigned dating based on the LMP, selected on 05/29/2025 32 w + 2 d 10/17/2025 General Evaluation Cardiac activity present. FHR 149 bpm. Presentation: breech Placenta: Placental site: anterior Amniotic Fluid Assessment === Amount of AF: polyhydramnios MVP 11.8 cm. MENDOZA 37.6 cm. Q1 11.8 cm, Q2 6.9 cm, Q3 10.6 cm, Q4 8.3 cm Biophysical Profile 2: breathing movements 2: Gross body movements 2: tone 2: Amniotic fluid volume NST: reactive 09/07 Biophysical profile score Non Stress Test NST interpretation: reactive. Baseline FHR 135 bpm. Baseline variability: moderate. Accelerations: present. Decelerations: absent. Uterine activity: absent Biometry BPD 88.3 mm 35w 5d >99% Hadlock HC 327.7 mm 37w 1d >99% Hadlock AC 327.4 mm 36w 5d >99% Hadlock Femur 65.1 mm 33w 4d 72% Hadlock Humerus 62.3 mm 36w 0d >99% Aide HC / AC 1.00 Weight Calculation: EFW 2,779 g >99% Hadlock EFW (lb,oz) 6 lb 2 oz EFW by Hadlock ([id number]) LGA Growth Overview Exam date GA BPD (mm) HC (mm) AC (mm) FL (mm) HL (mm) EFW (g) 05/29/2025 19w 6d 48 76% 169.3 28% 164.7 90% 33.3 63% 32.4 87% 382 92% 06/25/2025 23w 5d 59.4 64% 216.7 33% 211.8 92% 45.5 79% 42.7 91% 781 95% 07/23/2025 27w 5d 73.4 88% 269.1 72% 263.4 98% 53.7 58% 52.8 99% 1429 96% 08/24/2025 32w 2d 88.3 >99% 327.7 >99% 327.4 >99% 65.1 72% 62.3 >99% 2779 >99% Anatomy The following structures appear normal: Abdomen Stomach. Kidneys. Bladder. Impression ========= Single, live, intrauterine at 32w 2d. The growth is LGA. The amniotic fluid volume is polyhydramnios. The biophysical profile is 10/10. Follow-up ======== Continue weekly testing. Reassess growth in 4 weeks. Primary OB to ensure gestational diabetes screening was appropriately preformed. Coding ====== Diagnoses O36.63X0: Maternal care for excessive growth O99.213, E66.811: Obesity complicating , class 1 (BMI 30.0 - 34.9) O09.523: Supervision of elderly multigravida O36.63X0: Maternal care for excessive growth O99.213, E66.811: Obesity complicating , class 1 (BMI 30.0 - 34.9) O09.523: Supervision of elderly multigravida Procedures 52060: [place] [address]: Biophysical Profile W NST [place] [employer] Anatomical Region Laterality Modality Other 08/24/2025 3:23 PM CDT Toni Melendez MD [facility] ORDERABLES Edited Result - Final * ECHO COMPLETE CG (08/20/2025 12:10 PM CDT) MV E pk sherley 45.19 cm/s [facility] CV F UJI PACS MV A pk sherley 56.22 cm/s [facility] CV F [facility] [facility] PACS Anatomical Region Laterality Modality Ultrasound 08/20/2025 11:4 5 AM CDT Narrative 08/22/2025 5:31 PM CDT Name: Chelsea Hays Patient Exam Info Gender: Female Patient Status: O/P : 1985 Admit Date: 08/20/2025 Exam Date/Time: 08/20/2025 11:45 AM Site: [facility] Current Location: CARE EStaffOrdering Provider: Monie Fuentes Interpreting Physician: Blanca Mendoza MD Salon Manager: Missael Infante [facility] Study Info Procedure: ECHO COMPLETE CG Indications: O09.299 - Prior with congenital cardiac defect, antepartum (HCC) Maternal Gestational Status GA by EDC: 31 wks , 5 days EDC: 10/17/2025 Type: Brasher Age: 40 yrs Lie: Transverse Summary * The echocardiogram was within normal limits. * Increased doppler flow in ductus arteriosus; pk 1.4 m/s. * Small atrial and ventricular septal defects and persistent ductus arteriosus cannot be excluded as findings. Anatomic Relationships Left sided cardiac apex (levocardia). There is normal visceral-cardiac situs, and normal segmental cardiac anatomical relationship. Systemic Veins There is normal systemic venous return. Pulmonary Veins The visualized pulmonary veins drain normally to the left atrium. Right Atrium The right atrial size is normal. Left Atrium The left atrial size is normal. Atrial Septum Patent foramen ovale with open foramen flap. Color flow is right to left. Right Ventricle The right ventricular cavity size is normal. The right ventricular wall thickness is normal. The right ventricular systolic function is normal. RV Outflow Tract The right ventricular outflow tract is normal. Left Ventricle The left ventricular cavity size is normal. The left ventricular wall thickness is normal. The left ventricular systolic function is normal. Ventricular Septum There is no ventricular septal defect with no shunting. LV Outflow Tract The left ventricular outflow tract is normal. Tricuspid Valve The tricuspid valve is structurally normal. The tricuspid inflow pattern is normal. Tricuspid velocity is within the normal range. There is no tricuspid regurgitation. Mitral Valve The mitral valve is structurally normal. The mitral inflow pattern is normal. Mitral velocity is within the normal range. There is no mitral regurgitation. Aorta aortic arch visualized and is without obstruction by 2D, color flow and Doppler. Pulmonary Arteries The main pulmonary artery is normal, with confluent branch pulmonary arteries. Ductus Arteriosus The antegrade flow velocity and pattern in the ductal arch is increased. A normal ductus arteriosus is appreciated. Doppler Flow in the ductus venosus is normal. The umbilical vein flow pattern is normal. The umbilical artery flow pattern is normal. Hydrops Assessment No pericardial effusion. No ascites present. No pleural effusion(s). Rhythm The rhythm is normal. There is 1:1 AV conduction. Pulmonary Valve The pulmonic valve is normal-sized. The transpulmonic velocity is within normal range. There is no pulmonic regurgitation. Aortic Valve The aortic valve is normal-sized. The transaortic velocity is within normal range. There is no aortic regurgitation. Doppler Measurements (Fetus A) Atrioventricular Valves Name Value Normal Z-Score Percentile Atrioventricular Valves Doppler TV E Peak Velocity 0.5 m/s TV A Peak Velocity 0.7 m/s MV E Peak Velocity 0.5 m/s MV A Peak Velocity 0.6 m/s (Fetus A) Semilunar Valves Name Value Normal Z-Score Percentile Semilunar Valves Doppler PV Peak Velocity. 0.7 m/s AV Peak Velocity () 0.9 m/s (Fetus A) Heart Rate Name Value Normal Z-Score Percentile Heart Rate HR 132 bpm Report Signatures Finalized by Blanca Mendoza MD on 08/22/2025 05:31 PM Procedure Note Blanca Mendoza MD - 08/22/2025 Name: Chelsea Hays Patient Exam Info Gender: Female Patient Status: O/P : 1985 Admit Date: 08/20/2025 Exam Date/Time: 08/20/2025 11:45 AM Site: [facility] Current Location: CARE EStaffOrdering Provider: Monie Fuentes Interpreting Physician: Blanca Mendzoa MD Salon Manager: Missael Infante [facility] Study Info Procedure: ECHO COMPLETE CG Indications: O09.299 - Prior with congenital cardiac defect,antepartum (HCC) Maternal Gestational Status GA by EDC: 31 wks , 5 days EDC: 10/17/2025 Type: Brasher Age: 40 yrs Lie: Transverse Summary * The echocardiogram was within normal limits. * Increased doppler flow in ductus arteriosus; pk 1.4 m/s. * Small atrial and ventricular septal defects and persistent ductus arteriosus cannot be excluded as findings. Anatomic Relationships Left sided cardiac apex (levocardia). There is normal visceral-cardiac situs, and normal segmental cardiac anatomical relationship. Systemic Veins There is normal systemic venous return. Pulmonary Veins The visualized pulmonary veins drain normally to the left atrium. Right Atrium The right atrial size is normal. Left Atrium The left atrial size is normal. Atrial Septum Patent foramen ovale with open foramen flap. Color flow is right toleft. Right Ventricle The right ventricular cavity size is normal. The right ventricularwall thickness is normal. The right ventricular systolic function is normal. RV Outflow Tract The right ventricular outflow tract is normal. Left Ventricle The left ventricular cavity size is normal. The left ventricular wall thickness is normal. The left ventricular systolic function is normal. Ventricular Septum There is no ventricular septal defect with no shunting. LV Outflow Tract The left ventricular outflow tract is normal. Tricuspid Valve The tricuspid valve is structurally normal. The tricuspid inflow patternis normal. Tricuspid velocity is within the normal range. There is notricuspid regurgitation. Mitral Valve The mitral valve is structurally normal. The mitral inflow pattern is normal. Mitral velocity is within the normal range. There is no mitral regurgitation. Aorta aortic arch visualized and is without obstruction by 2D, colorflow and Doppler. Pulmonary Arteries The main pulmonary artery is normal, with confluent branch pulmonary arteries. Ductus Arteriosus The antegrade flow velocity and pattern in the ductal arch is increased.A normal ductus arteriosus is appreciated. Doppler Flow in the ductus venosus is normal. The umbilical vein flow patternis normal. The umbilical artery flow pattern is normal. Hydrops Assessment No pericardial effusion. No ascites present. No pleural effusion(s). Rhythm The rhythm is normal. There is 1:1 AV conduction. Pulmonary Valve The pulmonic valve is normal-sized. The transpulmonic velocity iswithin normal range. There is no pulmonic regurgitation. Aortic Valve The aortic valve is normal-sized. The transaortic velocity is withinnormal range. There is no aortic regurgitation. Doppler Measurements (Fetus A) Atrioventricular Valves Name Value Normal Z-ScorePercentile Atrioventricular Valves Doppler TV E Peak Velocity 0.5 m/s TV A Peak Velocity 0.7 m/s MV E Peak Velocity 0.5 m/s MV A Peak Velocity 0.6 m/s (Fetus A) Semilunar Valves Name Value Normal Z-ScorePercentile Semilunar Valves Doppler PV Peak Velocity. 0.7 m/s AV Peak Velocity () 0.9 m/s (Fetus A) Heart Rate Name Value Normal Z-ScorePercentile Heart Rate HR 132 bpm Report Signatures Finalized by Blanca Mendoza MD on 08/22/2025 05:31 PM Monie Fuentes RUBBER COMPOUNDER FORMULATOR-BUSINESS SOLUTION ANALYST ECHO CUPID Fin al Result from Last 3 Months Insurance [facility] [place] Care Teams Finishing Machine Operator Automatic Relationship Specialty Start Date End Date Toni Melendez MD [address] [facility] [facility] [address] [place] [id number] PCP - General Obstetrics and Gynecology 05/20/17
[2025-08-31 09:31] LABS: Glucose Fasting Gestational 91 mg/dL (>/=95)
[2025-08-31 11:04] LABS: Glucose 1 Hour Gest 183 mg/dL (>/=180)
[2025-08-31 12:22] LABS: Glucose 2 Hour Gest 177 mg/dL (>/= 155)
[2025-08-31 13:25] LABS: Glucose 3 Hour Gest 102 mg/dL (>/=140)
== END 2025-08-31 08:48 | disposition home or self-care (01) ==
LOC: ANHLAB 08:48
PROVIDERS: Visit Provider Obstetrics & Gynecology
DX: R73.09 Other abnormal glucose (principal)
CPT/HCPCS: 36415; 82951; 82952

== ENCOUNTER 2025-10-01 15:13 | Outpatient (CLI) | payer OTHER, SELFPAY ==
--- OUTSIDE RECORDS SUMMARY | 2025-10-01 15:35 | XMS_ITS | Clinical Summary ---
Author Organization [facility] Address [address] [place] [id number] Care Team Providers Care Food Adviser Name Role Phone Unavailable Primary Care Provider [...] HPV 2014 Mammogram Screening 2024 COVID-19 Vaccine (2024-2 6 season) 2025 Influenza Adult (#1) 2025 Hepatitis A Vaccines Aged Out No long er eligible based on patient's age to complete this topic Meningococcal B Vaccine Aged Out No l [...]
--- OUTSIDE RECORDS SUMMARY | 2025-10-01 15:35 | XMS_ITS | Clinical Summary ---
Author Organization [employer] Address [address] [place] [address] Care Team Providers Care Market Research Executive Name Role Phone Toni Melendez MD Primary Care Provider [phone] Source Comments [employer],non-owned Affiliates and Associated Physician Practices is amultiple site organization consisting of ambulatory clinics and hospital sitesin [place], [place], [place] and [place]. This disclosure is being madepursuant to the Care Everywhere program and may not contain all information available regarding this patient. Last updated 18.[employer] Allergies No known active allergies Medications * Be aware that medications may not be up to date on this document. Alwaysverify current medications with the patient. Vit-DSS-Fe Fum-FA ( vitamin with iron) tablet Take 1 (one) tablet by mouth once daily Active insulin glargine (Lantus/Semglee ) 100 units/mL penIndications: Gestational diabetes mellitus (GDM) in third trimester, gestational diabetes method of control unspecified (HCC) Prime needle with 2 units waste, then inject 10 units every morning and 10 units every night. Increase dose as directed due to increasing insulin requirements during . Max total daily dose of 50 units. 15 mL 09/19/20 25 Active Glucagon (Gvoke HypoPen 2-Pack) 1 MG/0.2ML SOAJIndications :Gestational diabetes mellitus (GDM) in third trimester, gestational diabetes method of control unspecified (HCC) Inject 1 mg subcutaneously as needed Inject 1 mg subcutaneously as needed for severe hypoglycemia 0.4 mL 1 09/19/20 Active insulin pen needle (Novofine 31) 31G X 5 MM needleIndicatio ns:Gestational diabetes mellitus (GDM) in third trimester, gestational diabetes method of control unspecified (HCC) Use 1 (one) Each as instructed 2 times daily 100 Each 09/19/20 Active Active Problems Patient Care Coordination No te Formatting of this note migh t be different from the original. HEART PATIENT See Plan of Care in Problem List Problem Noted Date Diagnosed Date Encounter for screenin g for congenital cardiac abnormalities 08/23/2025 Overview (08/23/2025): Images from the original note were not included. HEART PATIENT -- SEE CARDIOLOGY CONSULT Care Provider: Dr. Toni Melendez Mechanical Test Engineer Involved: Dr. Blanca Mendoza Diagnosis: No evidence of congenital heart disease; Increased doppler in ductus arteriosus (pk 1.4 m/s) Date of last echocardiogram: 08/20/2025 Planned Delivery Location: follow up: If delivering at [facility] recommend echocardiogram prior to discharge from nursery; If delivery at local [facility], recommend Cardiology evaluation at two weeks [...] Encounters Date Type Department Care Team Description 09/28/2025 11:15 AM CDT - 09/28/2025 11:59 PM CDT Hospital Encounter [facility] [address] [place] [address] Jose Giang MD Discharge Disposition: Home or Self Care 09/25/2025 2:30 PM CDT - 09/25/2025 11:59 PM CDT Hospital Encounter [facility] [address] [place] [phone] Lili Roman MD Tomlinson, Tracy M, MD Discharge Disposition: Home or Self Care 09/19/2025 1:00 PM CDT - 09/19/2025 11:59 PM CDT Hospital Encounter [facility] [address] [place] [phone] Lili Roman MD Discharge Disposition: Home or Self Care 09/18/2025 2:30 PM CDT - 09/18/2025 11:59 PM CDT Hospital Encounter [facility] [address] [place] [phone] Jose Giang MD Discharge Disposition: Home or Self Care 09/11/2025 1:40 PM CDT - 09/11/2025 11:59 PM CDT Hospital Encounter [facility] [address] [place] [phone] Jose Giang MD Discharge Disposition: Home or Self Care 09/04/2025 2:30 PM CDT - 09/04/2025 11:59 PM CDT Hospital Encounter [facility] [address] [place] [phone] Jose Giang MD Discharge Disposition: Home or Self Care 08/28/2025 10:30 AM CDT - 08/28/2025 11:59 PM CDT Hospital Encounter [facility] [address] [place] [phone] Latosha Chin MD CAP BLOCKER Discharge Disposition: Home or Self Care 08/24/2025 3:15 PM CDT Hospital Encounter [facility] [address] [place] [phone] Latosha Chin MD Discharge Disposition: Home or Self Care 08/24/2025 3:15 PM CDT Hospital Encounter [facility] [address] [place] [phone] Latosha Chin MD CAP BLOCKER Discharge Disposition: Home or Self Care 08/20/2025 11:15 AM CDT Hospital Encounter [address] [address] Blanca Mendoza MD Pediatric Cardiology Discharge Disposition: Home or Self Care 08/20/2025 11:15 AM CDT Hospital Encounter [address] [address] Blanca Mendoza MD Discharge Disposition: Home or Self Care 08/02/2025 Telephone [facility] [place] [address] [place] [phone] Nina Castelan Appointment 08/01/[address] [address] Nina Castelan Appointment 07/23/2025 10:52 AM CDT - 07/23/2025 11:59 PM CDT Hospital Encounter [facility] [address] [place] [address] Yamilka Leroy MD Discharge Disposition: Home or Self Care 07/18/2025 Telephone [facility] [address] [place] [phone] Nina Castelan Appointment from Last 3 Months Social History Tobacco [...] on file Legal Sex Female 5:33 AM 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 Gender Identity Female 04/21/2018 2:50 PM CDT Sexual Orientation Not on file Last Filed Vital Signs Vital Sign Reading Time Taken Comments Blood Pressure 126/74 09/28/2025 11:19 AM CDT Pulse 84 09/28/2025 11:19 AM CDT Temperature - - Respiratory Rate - - Oxygen Saturation - - Inhaled Oxygen Concentration - - Weight 105.3 kg (232 lb 3.2 oz) 09/19/2025 1:58 PM CDT Height 175.3 cm (5' 9) 09/18/2025 2:44 PM CDT Body Mass Index 34.29 09/18/2025 2:44 PM CDT Plan of Treatment Health Maintenance Due Date [...] 2025 2021, 12/31/2020 INFLUENZA VACCINE (#1) 2025 0, 08/08/2018, 08/10/2017 OB-GROUP B STREP SCREEN 09/12/2025 ZOSTER VACCINE (1 of 2) 2034 HIB VACCINE Aged Out No longer eligi ble based on patient's age to complete this topic MENINGOCOCCAL (Group B) VACCINE SHARED DECISION-MAKING Aged Out No longer eligible based on patient's age to complete this topic MENINGOCOCCAL GROUPS A/C/Y/W VACCINE Aged Out No longer eligible b ased on patient's age to complete this topic Respiratory Syncytial Virus (RSV) Vaccine Pt: or over 60 yrs (No Doses Required) Completed Procedures Procedure Name Priority Date/Time Associated Diagnosis Comments BIOPHYSICAL PROFILE [facility] Routine 09/25/2025 3:28 PM CDT AMA (advanced maternal age) multigravida 35+, third trimester (HCC) Obesity in (HCC) 33 weeks gestation of (HCC) Smoker Encounter for other screening follow-up ([facility]) Large for gestational age fetus affecting management of mother, antepartum, third trimester, other fetus (HCC) Polyhydramnios in third trimester complication, single or unspecified fetus (HCC) BIOPHYSICAL PROFILE W T Routine 09/18/2025 3:03 PM CDT AMA (advanced maternal age) multigravida 35+, third trimester (HCC) Obesity in (HCC) 33 weeks gestation of (HCC) Smoker Encounter for other screening follow-up (HCC) Large for gestational age fetus affecting management of mother, antepartum, third trimester, other fetus (HCC) Polyhydramnios in third trimester complication, single or unspecified fetus (HCC) BIOPHYSICAL PROFILE [facility] Routine 09/11/2025 2:37 PM CDT AMA (advanced maternal age) multigravida 35+, third trimester (HCC) Obesity in (HCC) 34 weeks gestation of (HCC) Smoker Encounter for other screening follow-up (HCC) Large for gestational age fetus affecting management of mother, antepartum, third trimester, other fetus (HCC) Polyhydramnios in third trimester complication, single or unspecified fetus (HCC) BIOPHYSICAL PROFILE [facility] Routine 09/04/2025 3:05 PM CDT AMA (advanced maternal age) multigravida 35+, third trimester (HCC) Obesity in (HCC) 33 weeks gestation of (HCC) Smoker Encounter for other screening follow-up (HCC) Large for gestational age fetus affecting management of mother, antepartum, third trimester, other fetus (HCC) Polyhydramnios in third trimester complication, single or unspecified fetus (HCC) BIOPHYSICAL PROFILE W NST Routine 08/28/2025 11:23 [...] CDT Prior with congenital cardiac defect, antepartum (HCC) SONOGRAM - COMPLETE Routine 07/23/2025 1 1:41 AM CDT Obesity in (HCC) Encounter for ultrasound to assess growth (HCC) Smoker 27 weeks gestation of (HCC) from Last 3 Months Results * Biophysical Profile w NST (09/25/2025 3:28 PM CDT) Only the most recent of5 resultswithin the time period is included. Linked Results Indication ======== Advanced maternal age (AMA), multigravida Large for dates Polyhydramnios Gestational diabetes mellitus in , unspecified control Maternal obesity complicating , class 1 (BMI 30.0 - 34.9) Family history of congenital heart defect History ====== OB History 9. Para 7 [id number] 1. live 2002. Gest. age 42 w [...] Initial BMI 32.19 kg/m Method ====== Transabdominal ultrasound. View: Sufficient ========= Brasher . Number of fetuses: 1 Dating ====== Date Details Gest. age NINA LMP 01/10/2025 36 w + 6 d 10/17/2025 Assigned dating based on the LMP, selected on 05/29/2025 36 w + 6 d 10/17/2025 General Evaluation Cardiac activity present. FHR 129 bpm. Presentation: cephalic Placenta: Placental site: posterior Amniotic Fluid Assessment ==== Amount of AF: severely increased MENDOZA 39.5 cm. Q1 13.1 cm, Q2 10.3 cm, Q3 10.1 cm, Q4 6.0 cm Biophysical Profile 2: breathing movements 2: Gross body movements 2: tone 2: Amniotic fluid volume NST: reactive 10 Biophysical profile score Non Stress Test NST interpretation: reactive. Baseline FHR 120 bpm. Baseline variability: moderate. Decelerations: absent Growth Overview Exam date GA BPD [...] >99% 65.1 72% 62.3 >99% 2779 >99% 09/18/2025 35w 6d 95.2 >99% 346.4 97% 387.2 >99% 75 94% 4285 >99% Anatomy The following structures appear normal: Abdomen Stomach. Kidneys. Bladder. Impression ========= 1) Brasher gestation, 36w6d 2) There is persistent polyhydramnios that is currently in the severe range 3) Reassuring biophysical profile Follow-up ======== Close maternal movement monitoring, weekly amniotic fluid assessment, and twice weekly NSTs while awaiting admission for delivery (CD scheduled on 10/02) Coding ====== Diagnoses O36.63X0: Maternal care for excessive growth O99.213, E66.811: Obesity complicating , class 1 (BMI 30.0 - 34.9) O09.523: Supervision of elderly multigravida O24.419: Gestational diabetes mellitus in , unspecified control O40.3XX0: Polyhydramnios Procedures 26887: Biophysical Profile W NST 49085: US Uterus Limited mySugr PACS Anatomical Region Laterality Modality Other 09/25/2025 3:28 PM CDT us Toni Melendez MD [facility] ORDERABLES Edited Result - Final * Sonogram - Complete (08/24/2025 3:23 PM CDT) Only the most recent of2 resultswithin the time period is included. Linked Results Indication ======== Large for dates Advanced maternal age (AMA), multigravida Maternal obesity complicating , class 1 (BMI 30.0 - 34.9) History ====== OB History 9. Para 7 [id number] 1. live 2002. Gest. age 42 w [...] 6 lb 2 oz EFW by Hadlock ([id number]) LGA Growth Overview Exam date GA BPD [...] 34.9) O09.523: Supervision of elderly multigravida Procedures 30213: [place] [address]: Biophysical Profile W NST mySugr PACS Anatomical Region Laterality Modality Other 08/24/2025 3:23 PM CDT us Toni Melendez MD [facility] ORDERABLES Edited Result - Final * ECHO COMPLETE CG (08/20/2025 12:10 PM CDT) MV E pk sherley 45.19 cm/s [facility] CV F UJI PACS MV A pk sherley 56.22 cm/s [facility] CV F UJI PACS Anatomical Region Laterality Modality Ultrasound 08/20/2025 11:4 5 AM CDT Narrative 08/22/2025 5:31 PM CDT Name: Chelsea Hays Patient Exam Info Gender: Female Patient Status: O/P : 1985 Admit Date: 08/20/2025 Exam Date/Time: 08/20/2025 11:45 AM Site: [facility] Current Location: CARE EStaffOrdering Provider: Monie Fuentes Interpreting Physician: Blanca Mendoza MD Doll Wig Maker: Missael Infante RDCS Study Info Procedure: ECHO COMPLETE CG Indications: [...] 08/20/2025 Exam Date/Time: 08/20/2025 11:45 AM Site: [facility] Current Location: CARE EStaffOrdering Provider: Monie Fuentes Interpreting Physician: Blanca Mendoza MD Doll Wig Maker: Missael Infante [facility] Study Info Procedure: ECHO COMPLETE CG Indications: [...] MD on 08/22/2025 05:31 PM Monie Fuentes APRN-PLASTERER [facility] Fin al Result from Last 3 Months Insurance [facility] [place]ICAID [place] Care Teams Market Research Executive Relationship Specialty Start Date End Date Toni Melendez MD [address] [place] [id number] PCP - General Obstetrics and Gynecology 05/20/17
[2025-10-01 15:56] LABS: Hematocrit 31.9 % (37.0-47.0); Hemoglobin 10.5 g/dL (12.0-15.0); Mean Corpuscular HGB Conc 32.9 g/dl (32-36); Mean Corpuscular Hemoglobin 30.2 pg (26-34); Mean Corpuscular Volume 91.7 fl (80-100); Platelet Count Result 189 k/mm3 (150-375); Red Blood Count 3.48 M/mm3 (4.2-5.4); White Blood Count 8.1 K/mm3 (4.5-10.0)
[2025-10-01 16:44] LABS: Syphilis IgG/IgM Antibody Non-Reactive (Nonreactive)
== END 2025-10-01 15:14 | disposition home or self-care (01) ==
PROVIDERS: Visit Provider Obstetrics & Gynecology
DX: Z01.818 Encounter for other preprocedural examination (principal)
CPT/HCPCS: 36415; 85027; 86593; 86850; 86900; 86901

== ENCOUNTER 2025-10-02 10:06 | Inpatient (IN) | payer OTHER, SELFPAY ==
--- NOTE | 2025-10-01 16:05 | PM.IMHP ---
H&P: HPI History of Present Illness Date/Time: 10/01/25 16:05 40-year-old female presents for primary delivery. She is 38 weeks gestation with poorly controlled diabetes and currently on injections of insulin in the evening and morning. She has been seeing Maternal Medicine for this as well as polyhydramnios and macrosomia, baby is also been breech or transverse until 1 exam last week at which time she was vertex, since then has been transverse again. Therefore presents for primary delivery. Chief Complaint: Review of Systems Review of Systems: All systems reviewed & are unremarkable except as noted in HPI and below PMFSH Past Medical History Medical History Vaginal discharge Degenerative disc disease Bursitis Screen for STD (sexually transmitted disease) BMI 30.0-30.9,adult Perirectal abscess REUA and I&D perirectal abscess on 07/20/22. Hemorrhoid thrombosis Smoker Arthritis Encounter for IUD removal (~2009) Mirena removal Encounter for IUD insertion 04/03/05 Mirena insertion 01/10/20 Mirena insertion Herpes HSV 1 & 2 Psoriasis Abnormal Pap smear of cervix (04/04/14) ascus -HPV Asthma Surgical History Surgical History History of hysteroscopy (11/17/24) suction D&C S/P dilatation and curettage History of shoulder surgery (~01/2024) H/O hemorrhoidectomy S/P skin biopsy History of appendectomy (~2003) Family History Family History Grandparent Acute myocardial infarction Daughter Heart valve regurgitation Heart murmur Sibling Diabetes mellitus sister Mother Congestive heart failure Social History Social History Smoking packs per day: 0.5 Smoking cigarettes per day: 10.0 Years smoked: 15 Smoking pack-years: 7.50 Smoking status: Current every day smoker Tobacco type: cigarettes Second hand tobacco smoke exposure: Yes Alcohol intake: never Substance use: former Substance use type: marijuana Other substance usage details: A TEEN 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 Do You Feel Safe in your Home?: Yes Lack of Transportation: No Lack of Food: Never True Current Housing: I Have Housing Concerned About Future Housing: No Difficulty Paying Gas/Electric Bills: No Difficulty Paying for Meds: No Currently Unemployed: No Education: High School Diploma/GED Difficulty w/ Childcare or Family Care: No Living arrangements: with family Additional living arrangements comments: fiance Occupation/Education: occupation 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 Gender identity (if verbalized by the patient): Female Sexual Orientation (if Verbalized by the Patient): Straight or Heterosexual Spiritual care concerns: No Meds Home Medications and Allergies Home Medications ?Medication ?Instructions ?Recorded ?Confirmed ?Type vitamins-iron fumarate 65 1 tablet PO DAILY 10/23/24 10/01/25 History mg iron-folic acid 1 mg tablet albuterol sulfate 90 mcg/actuation 2 puff inhalation Q6H PRN 11/15/24 10/01/25 History aerosol inhaler shortness of breath or wheezing budesonide 90 mcg/actuation breath 1 inh inhalation Q12H 08/14/25 10/01/25 History activated powder inhaler (Pulmicort Flexhaler) insulin glargine 100 unit/mL 10 unit subcut BID 09/25/25 10/01/25 History subcutaneous solution (Lantus U-100 Insulin) aspirin 81 mg capsule 81 mg PO DAILY 10/01/25 10/01/25 History Allergies Allergy/AdvReac Type Severity Reaction Status Date / Time venom-wasp Allergy Unknown Anaphylactic Verified 10/01/25 14:37 Shock Exam Resp: Effort & Inspection: normal respiratory effort Auscultation: clear to auscultation bilaterally Cardio: Rate: regular rate Rhythm: regular rhythm GI: Inspection: normal to inspection Auscultation: normal bowel sounds : Bimanual exam- vagina & uterus: enlarged ( heart tones 140, fundal height 45, vertex right lateral) Assessment and Plan Assessment and plan (1) 38 weeks gestation of : Code(s): Z3A.38 - 38 weeks gestation of Status: Acute (2) malpresentation: Code(s): O32.9XX0 - Maternal care for malpresentation of fetus, unspecified, not applicable or unspecified Status: Acute (3) Gestational diabetes mellitus: Code(s): O24.419 - Gestational diabetes mellitus in , unspecified control Status: Acute (4) Grand multiparity: Code(s): Z64.1 - Problems related to multiparity Status: Acute (5) Advanced maternal age (AMA) in : Status: Acute Plan proceed with primary low transverse section
[2025-10-02] VITALS (62 sets, daily range): BP systolic 92–118; BP diastolic 43–80; PULSE 51–80; RESP 14–18; TEMP 36.1–36.3; O2SAT 97–100; BMI 33.8
--- NOTE | 2025-10-02 09:16 | WPDHPUPDATE1 ---
History and Physical Update Update Date/Time: 10/02/25 09:16 History and Physical has been reviewed, including an updated exam of the patient. There are NO changes in the patient's condition. Risks, benefits, and alternatives have been discussed and questions answered. Patient agrees to proceed with procedure.
[2025-10-02] MEDS: ACETAMINOPHEN 500 MG TABLET 1000 MG PO ×2 (10:42→17:42)
--- NOTE | 2025-10-02 10:48 | LDADM ---
This patient, Chelsea Hays, was admitted to Labor/Delivery/Recovery 119 on 10/02/25 at 10:06. Plans for labor, pain management and were discussed with patient. Patient/family oriented to hospital policies and general routines including ID bracelet, bed and alarms, visiting hours, pain management, procedures, bathroom and other care routines, personal items, smoking policy, room service/diet and guest tray routines, security routines, and visiting hours. Patient/Family are encouraged to report perceived risks to care and to ask questions if they do not understand what they are told or what they should do. See [facility]BIX for further documentation.
[2025-10-02] MEDS: LACTATED RINGERS 1,000 ML 125 ML IV CONT ×3 (11:00→12:00)
[2025-10-02] MEDS: FAMOTIDINE 20 MG/2 ML VIAL IV PUSH (11:06)
[2025-10-02] MEDS: ONDANSETRON INJ 4 MG/2 ML VIAL IV PUSH ×2 (11:06→16:53)
--- NOTE | 2025-10-02 11:30 | WPDANESEPPF ---
Anes - Initial Pre Proc Eval Procedure: Operation Date: 10/02/25 12:00 Proposed Procedures p Primary Section with Bilateral Salpingectomy - Toni Melendez MD Date/Time: 10/02/25 11:30 Surgeon: Toni Melendez MD Pre Op Diagnosis: c/s Patient Data Age: 40 Gender: F Height: 1.78 m Weight: 107 kg Last Vital Signs Pulse 67 10/02/25 11:15 BP 118/61 10/02/25 11:15 Pulse Ox 100 10/02/25 11:27 O2 Del Method Room Air 10/02/25 10:48 Allergies Allergy/AdvReac Type Severity Reaction Status Date / Time venom-wasp Allergy Unknown Anaphylactic Verified 10/02/25 10:48 Shock Home Medications ?Medication ?Instructions ?Recorded ?Confirmed ?Type vitamins-iron fumarate 65 1 tablet PO DAILY 10/23/24 10/01/25 History mg iron-folic acid 1 mg tablet albuterol sulfate 90 mcg/actuation 2 puff inhalation Q6H PRN 11/15/24 10/01/25 History aerosol inhaler shortness of breath or wheezing budesonide 90 mcg/actuation breath 1 inh inhalation Q12H 08/14/25 10/01/25 History activated powder inhaler (Pulmicort Flexhaler) insulin glargine 100 unit/mL 10 unit subcut BID 09/25/25 10/01/25 History subcutaneous solution (Lantus U-100 Insulin) aspirin 81 mg capsule 81 mg PO DAILY 10/01/25 10/01/25 History Laboratory Tests 10/02/25 10:46 POC Capillary Glucose 60 L mg/dl (65-105) Patient hx anesthesia problems: none Family hx anesthesia problems: none Results Review: All pre-operative results and documents have been reviewed as part of the pre-operative evaluation. [facility] Past Medical History Medical History Vaginal discharge Degenerative disc disease Bursitis Screen for STD (sexually transmitted disease) BMI 30.0-30.9,adult Perirectal abscess REUA and I&D perirectal abscess on 07/20/22. Hemorrhoid thrombosis Smoker Arthritis Encounter for IUD removal (~2009) Mirena removal Encounter for IUD insertion 04/03/05 Mirena insertion 01/10/20 Mirena insertion Herpes HSV 1 & 2 Psoriasis Abnormal Pap smear of cervix (04/04/14) ascus -HPV Asthma Surgical History Surgical History History of hysteroscopy (11/17/24) suction D&C S/P dilatation and curettage History of shoulder surgery (~01/2024) H/O hemorrhoidectomy S/P skin biopsy History of appendectomy (~2003) Family History Family History Grandparent Acute myocardial infarction Daughter Heart valve regurgitation Heart murmur Sibling Diabetes mellitus sister Mother Congestive heart failure Social History Social History Smoking packs per day: 0.5 Smoking cigarettes per day: 10.0 Years smoked: 15 Smoking pack-years: 7.50 Smoking status: Current every day smoker Tobacco type: cigarettes Second hand tobacco smoke exposure: Yes Alcohol intake: never Substance use: former Substance use type: marijuana Other substance usage details: A TEEN 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 Do You Feel Safe in your Home?: Yes Lack of Transportation: No Lack of Food: Never True Current Housing: I Have Housing Concerned About Future Housing: No Difficulty Paying Gas/Electric Bills: No Difficulty Paying for Meds: No Currently Unemployed: No Education: High School Diploma/GED Difficulty w/ Childcare or Family Care: No Living arrangements: with family Additional living arrangements comments: fiance Occupation/Education: occupation 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 Gender identity (if verbalized by the patient): Female Sexual Orientation (if Verbalized by the Patient): Straight or Heterosexual Spiritual care concerns: No Anes - Eval Final PreProcedure Day of Procedure 10/02/25 11:30 Patient weight: obese Heart: regular rate and rhythm Lungs: decreased breath sounds Airway: Mallampati scale class II Neurological: alert and oriented Last oral intake: >/= 8 hours ASA classification: III Emergent: no Anesthetic plan: proceed Anesthesia type and monitoring: regional spinal and standard monitoring Results Review: All pre-operative results and documents have been reviewed as part of the pre-operative evaluation. Informed Consent: The patient's anesthetic plan and its attendant risks and benefits were discussed with the patient/family/POA. Questions were solicited and answers provided to the satisfaction of the patient/family/POA.
--- OUTSIDE RECORDS SUMMARY | 2025-10-02 11:30 | XMS_ITS | Clinical Summary ---
Author Organization [facility] Address [address] [place] [address] Care Team Providers Care Viscosity Worker Name Role Phone Toni Melendez MD Primary Care Provider [phone] Source Comments [facility],non-owned Affiliates and Associated Physician Practices is amultiple site organization consisting of ambulatory clinics and hospital sitesin [place], [place]. This disclosure is being madepursuant to the Care Everywhere program and may not contain all information available regarding this patient. Last updated 18.[facility] Allergies No known active allergies Medications * [...] CARDIOLOGY CONSULT Care Provider: Dr. Toni Melendez Applications Development Analyst Involved: Dr. Blanca Mendoza Diagnosis: No evidence of congenital heart disease; Increased doppler in ductus arteriosus (pk 1.4 m/s) Date of last echocardiogram: 08/20/2025 Planned Delivery Location: follow up: If delivering at [place] recommend echocardiogram prior to discharge from nursery; [facility], recommend Cardiology evaluation at two weeks [...] - 09/28/2025 11:59 PM CDT Hospital Encounter Replaced by [facility] [address] [place] [address] Jose Giang MD Discharge Disposition: Home or Self Care 09/25/2025 2:30 PM CDT - 09/25/2025 11:59 PM CDT Hospital Encounter Replaced by [facility] [address] [place] [id number] Lili Roman MD Tomlinson, Tracy M, MD Discharge Disposition: Home or Self Care 09/19/2025 1:00 PM CDT - 09/19/2025 11:59 PM CDT Hospital Encounter Replaced by [facility] [address] [place] [phone] Lili Roman MD Discharge Disposition: Home or Self Care 09/18/2025 2:30 PM CDT - 09/18/2025 11:59 PM CDT Hospital Encounter Replaced by [facility] [address] [place] [phone] Joes Giang MD Discharge Disposition: Home or Self Care 09/11/2025 1:40 PM CDT - 09/11/2025 11:59 PM CDT Hospital Encounter Replaced by [facility] [address] [place] [phone] Jose Giang MD Discharge Disposition: Home or Self Care 09/04/2025 2:30 PM CDT - 09/04/2025 11:59 PM CDT Hospital Encounter Replaced by [facility] [address] [place] [phone] Jose Giang MD Discharge Disposition: Home or Self Care 08/28/2025 10:30 AM CDT - 08/28/2025 11:59 PM CDT Hospital Encounter Replaced by [facility] [address] [place] [phone] Latosha Chin MD BIOMEDICAL SERVICE ENGINEER Discharge Disposition: Home or Self Care 08/24/2025 3:15 PM CDT Hospital Encounter Replaced by [facility] [address] [place] [phone] Latosha Chin MD Discharge Disposition: Home or Self Care 08/24/2025 3:15 PM CDT Hospital Encounter Replaced by [facility] [address] [place] [phone] Latosha Chin MD BIOMEDICAL SERVICE ENGINEER Discharge Disposition: Home or Self Care 08/20/2025 11:15 AM CDT Hospital Encounter [address] [address] Blanca Mendoza MD Pediatric Cardiology Discharge Disposition: Home or Self Care 08/20/2025 11:15 AM CDT Hospital Encounter [address] [address] Blanca Mendoza MD Discharge Disposition: Home or Self Care 08/02/2025 Telephone [facility] [address] [place] [phone] Nina Castelan Appointment 08/01/[address] [address] Nina Castelan Appointment 07/23/2025 10:52 AM CDT - 07/23/2025 11:59 PM CDT Hospital Encounter Replaced by [facility] [address] [place] [address] Yamilka Leroy MD Discharge Disposition: Home or Self Care 07/18/2025 Telephone [facility] [address] [place] [id number] Nina Castelan Appointment from Last 3 Months [...] on file Legal Sex Female 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 Gender Identity Female 04/21/2018 2:50 PM CDT [...] Date/Time Associated Diagnosis Comments BIOPHYSICAL PROFILE [facility] Routine 09/25/2025 3:28 PM CDT AMA (advanced maternal age) multigravida 35+, third trimester (HCC) Obesity in (HCC) 33 weeks gestation of (HCC) Smoker Encounter for other screening follow-up ([facility]) Large for gestational age fetus affecting management [...] or unspecified fetus (HCC) BIOPHYSICAL PROFILE [facility] Routine 09/11/2025 2:37 PM CDT AMA (advanced maternal age) multigravida 35+, third trimester (HCC) Obesity in (HCC) 34 weeks gestation of (HCC) Smoker Encounter for other screening follow-up (HCC) Large for gestational age fetus affecting management of mother, antepartum, third trimester, other fetus (HCC) Polyhydramnios in third trimester complication, single or unspecified fetus (HCC) BIOPHYSICAL PROFILE [facility] Routine 09/04/2025 3:05 PM CDT AMA (advanced [...] History ====== OB History 9. Para 7 [id number] 1. live 2002. Gest. age 42 w [...] in , unspecified control O40.3XX0: Polyhydramnios Procedures 01242: Biophysical Profile W NST 76084: US Uterus Limited Spine Pain Management PACS Anatomical Region Laterality Modality Other 09/25/2025 3:28 PM CDT us Toni Melendez MD [facility] ORDERABLES Edited Result - Final * Sonogram - Complete (08/24/2025 3:23 PM CDT) Only the most recent of2 resultswithin the time period is included. Linked Results Indication ======== Large for dates Advanced maternal age (AMA), multigravida Maternal obesity complicating , class 1 (BMI 30.0 - 34.9) History ====== OB History 9. Para 7 [id number] 1. live 2002. Gest. age 42 w [...] 6 lb 2 oz EFW by Hadlock ([id number]) LGA Growth Overview Exam date GA BPD [...] 34.9) O09.523: Supervision of elderly multigravida Procedures 10890: [place] [address]: Biophysical Profile W NST Spine Pain Management PACS Anatomical Region Laterality Modality Other 08/24/2025 3:23 PM CDT us Toni Melendez MD [facility] ORDERABLES Edited Result - Final * ECHO [...] 08/20/2025 11:45 AM Site: [facility] Current Location: CARE EStaffOrdering Provider: Monie Fuentes Interpreting Physician: Blanca Mendoza MD Sheriff Sergeant: Missael Infante RDCS Study Info Procedure: ECHO [...] 08/20/2025 11:45 AM Site: [facility] Current Location: CARE EStaffOrdering Provider: Monie Fuentes Interpreting Physician: Blanca Mendoza MD Sheriff Sergeant: Missael Infante [facility] Study Info Procedure: ECHO COMPLETE CG Indications: [...] MD on 08/22/2025 05:31 PM Monie Fuentes APRN-PATIENT [facility] Fin al Result from Last [address] [facility] [place] Care Teams Viscosity Worker Relationship Specialty Start Date End Date Toni Melendez MD [address] [place] [id number] PCP - General Obstetrics and Gynecology 05/20/17
[2025-10-02] MEDS: ceFAZolin 2 GM in SODIUM CHLORIDE 0.9% IV 50 ML 100 ML IVPB (11:43)
--- NOTE | 2025-10-02 13:09 | W.PM.OBCSD ---
OB - Delivery Note Procedure Delivery date: 10/02/25 Pre-op diagnosis: Breech Presentation ( Transverse presentation), Gestational Diabetes, Macrosomia and Polyhydramnios Post-op Diagnosis: Same Induction method: None Delivery monitor: External FHT and External Uterine Prior to decision for section, ACOG/SM labor guidelines were considered and discussed with the patient and staff. Decision made to proceed with the section.: Yes Procedure Performed: Primary Primary branch: low cervical, transverse Surgeon: Toni Melendez MD Anesthesia type: Spinal Description of Procedure/Findings: patient prepped and draped usual manner for this procedure. Pfannenstiel incision was made and carried down to the fascia which was extended bilaterally the length of the skin incision. Superiorly and inferiorly dissected away from the rectus muscles which were then bluntly dissected and peritoneum was readily entered. Bladder flap was developed without difficulty. Low-transverse incision was made and this was extended the length of the lower segment. The transverse position was rotated to vertex and delivered in vertex position without difficulty. Rest of baby was delivered cord clamped cut baby was passed off the operative field. Placenta was then removed manually. Initially there was a significant amount of blood loss as uterus was hyperextended, with massage and Pitocin ultimately contracted with minimal blood loss. Once the membranes and clots had been removed from the uterus it was closed using 0 Monocryl in running interlocking manner with good approximation hemostasis noted. Uterus turned the abdomen gutters were clear serous and as fluids and clots and the fascia was approximated 0 Vicryl left angle midline the right angle midline. Subcutaneous tissues approximated using 0 plain suture and salvador were used to approximate the skin edges. Patient was sent to recovery room in stable condition. Specimen: Yes Estimated Blood Loss: 1,000 Drains: No Packing: No Pathology: Yes Complications: No immediate complications Condition: Stable Disposition: PACU Baby Gestational Age by Date: 38 Infant gender: Male presentation: vertex Placenta delivery description: Manual Removal Cord Vessel Description: 3 Vessels
[2025-10-02] MEDS: OXYTOCIN 30 UNITS/NS 500 ML 30 UNITS/500 ML BAG 125 UNITS IV CONT (13:10)
--- NOTE | 2025-10-02 13:29 | S_PTH ---
PATIENT: Chelsea Hays LOC: [facility] U#:[id number] AGE/SX: 40/F ROOM: 284 RE10/02/[address]: Rashawn Sterling MD : 1985 BED: 00 DIS: 10/05/2025 SPEC #: [id number] RECD: 10/03/25 07:10 STATUS: GRAY REAbel #: [id number] HARVEY: 10/02/25 13:[address]: Toni Melendez DEPT: [facility] Surgical RECD BY: Court Teixeira Tissues: A - Placenta Procedures: Hematoxylin and Eosin Stain Gross and Microscopic Level 5
[2025-10-02] MEDS: KETOROLAC 15 MG/ML VIAL (*BKC) IV PUSH ×2 (14:16→17:39)
--- NOTE | 2025-10-02 15:03 | PC.NURSE ---
Pt arrives per stretcher to room #284 Accompanied by Jenna THORNTON and Family also accompanies in open crib
[2025-10-02] MEDS: LIDOCAINE 5% PATCH 1 PATCH TRANSDERM (16:11)
--- NOTE | 2025-10-02 16:26 | WPDHPUPDATE1 ---
History and Physical Update Update Date/Time: 10/02/25 16:26 History and Physical has been reviewed, including an updated exam of the patient. There are NO changes in the patient's condition. Risks, benefits, and alternatives have been discussed and questions answered. Patient agrees to proceed with procedure.
[2025-10-02] MEDS: SIMETHICONE 80 MG TAB.CHEW PO (17:42)
[2025-10-02] MEDS: DEXTROSE 5%/0.45% SOD CHL 1,000 ML 125 ML IV CONT (19:20)
[2025-10-02] MEDS: FLUTICASONE PROP 44 MCG (*SP) 10.6 GM 2 PUFF INHALATION (20:57)
[2025-10-03] MEDS: KETOROLAC 15 MG/ML VIAL (*BKC) IV PUSH ×2 (00:01→04:51)
[2025-10-03] MEDS: ACETAMINOPHEN 500 MG TABLET 1000 MG PO ×5 (00:02→22:43)
[2025-10-03] MEDS: DEXTROSE 5%/0.45% SOD CHL 1,000 ML 125 ML IV CONT (04:30)
[2025-10-03 06:11] LABS: Hematocrit 26.4 % (37.0-47.0); Hemoglobin 8.5 g/dL (12.0-15.0); Immature Granulocyte Percent A 0.5 % (0-0.5); Lymphocytes Absolute Auto 1.55 K/mm3 (0.9-3.2); Mean Corpuscular HGB Conc 32.2 g/dl (32-36); Mean Corpuscular Hemoglobin 30.1 pg (26-34); Mean Corpuscular Volume 93.6 fl (80-100); Nucleated Red Blood Cells Absolute Auto 0.000 K/mm3 (0.0-0.012); Nucleated Red Blood Cells Perc 0.0 % (0.0-0.2); Platelet Count Result 161 k/mm3 (150-375); Red Blood Count 2.82 M/mm3 (4.2-5.4); White Blood Count 8.6 K/mm3 (4.5-10.0)
[2025-10-03 07:25] VITALS: BP 104/52; PULSE 60; RESP 16; TEMP 36.6; O2SAT 98
[2025-10-03 08:45] VITALS: PULSE 65; RESP 17
[2025-10-03] MEDS: FLUTICASONE PROP 44 MCG (*SP) 10.6 GM 2 PUFF INHALATION ×2 (08:45→21:12)
[2025-10-03] MEDS: SIMETHICONE 80 MG TAB.CHEW PO ×3 (09:03→19:55)
[2025-10-03] MEDS: oxyCODONE HCL (*CRX) 5 MG TAB IR PO ×2 (09:03→13:50)
[2025-10-03] MEDS: MULTIVIT/MIN/PREN/FOL AC/IRON TABLET 1 TAB PO (09:03)
[2025-10-03] MEDS: DOCUSATE SODIUM 100 MG CAPSULE PO ×2 (09:03→16:58)
[2025-10-03] MEDS: IBUPROFEN 600 MG TABLET PO ×3 (11:17→22:43)
[2025-10-03 12:15] VITALS: BP 111/59; PULSE 70; RESP 16; TEMP 36.9; O2SAT 97
--- NOTE | 2025-10-03 13:54 | P.DS_ITS ---
DS: Admitting Diagnosis Discharge Date 10/04/2025 Admitting Diagnosis DS: Discharge Diagnosis Discharge Diagnosis (1) , delivered: Code(s): O80 - Encounter for full-term uncomplicated delivery Status: Acute OB - DS: Summary OB Procedures : NST OB Procedures Intrapartum: low cervical, transverse OB Procedures: : None Peripartum Data Procedures: Procedures Operation Date: 10/02/25 12:00 Actual Procedure Side Surgeon p Primary Section Toni Melendez MD Time Spent with Patient Time attestation: Total time spent providing and/or coordinating discharge services: DS: Data Data Completed and Pending Pending studies at discharge: Pending at discharge 10/02/25 13:29 Surgical [PTH] Routine Labs on day of discharge: Labs from last 24 hours 10/03/25 05:57 WBC 8.6 RBC 2.82 L Hgb 8.5 L Hct 26.4 L MCV 93.6 MCH 30.1 MCHC 32.2 RDW 13.8 Plt Count 161 MPV 10.4 Immature Gran % (Auto) 0.5 Neut % (Auto) 72.9 Lymph % (Auto) 18.1 L Daniels % (Auto) 6.9 Eos % (Auto) 1.2 Baso % (Auto) 0.4 Lymph # (Auto) 1.55 Daniels # (Auto) 0.6 Eos # (Auto) 0.1 Baso # (Auto) 0.0 Abs Immat Gran (auto) 0.04 H Absolute Neuts (auto) 6.3 Absolute Nucleated RBC 0.000 Nucleated RBC % 0.0 Discharge Plan Discharge Discharging Clinician: Toni Melendez Patient Disposition: Home Activity: may shower, no straining, follow weight bearing status and pelvic rest Diet: as tolerated Wound Care Instructions: other - see discharge instructions Discharge Instructions: 1. Return to office Wednesday/Wednesday for staple removal WILL NEED REMOVAL KIT AND STRIPS. Patient Instructions: Antibiotic Form, How to Stop Smoking (GEN) Patient Language: Telugu Stand Alone Forms: General Discharge Information Follow-up/Referrals: Toni Melendez MD [Physician, SMALL ENGINE MECHANIC] - 4 Weeks Discharge Medications: New oxycodone 5 mg Tablet 5 mg PO Q4H PRN (Reason: Pain Rated 4-6) Qty: 20 0RF ibuprofen 600 mg Tablet 600 mg PO Q6HR Qty: 30 0RF Continued vit-iron fum-folic ac 65 mg iron- 1 mg tablet 1 tablet PO DAILY Pulmicort Flexhaler 90 mcg/actuation aerosol powdr breath activated 1 inh inhalation Q12H albuterol sulfate 90 mcg/actuation HFA aerosol inhaler 2 puff INHALATION Q6H PRN (Reason: shortness of breath or wheezing) Discontinued insulin glargine [Lantus U-100 Insulin] 100 unit/mL solution 10 unit subcut BID aspirin 81 mg capsule 81 mg PO DAILY Date of admission: 10/02/25 10:06 Primary Care Provider: Yue,Clifton Admitting Provider: Toni Melendez Attending physician on admission: Toni Melendez Condition: Stable
[2025-10-03] MEDS: oxyCODONE HCL (*CRX) 5 MG TAB IR 10 MG PO (17:02)
--- NOTE | 2025-10-03 17:05 | WPDANLDPN2 ---
Anes-Prog Note L&D Date/Time: 10/03/25 17:05 Comfortable throughout: section Neuraxial method: spinal Epidural/Spinal procedure site: clean & non-tender Neuro status: Neuro function grossly intact. Cardiovascular status: normal Respiratory status: normal Airway patency: baseline Mental status: baseline Post-Op hydration status: normal Vital Signs: Last Vital Signs Temp 36.9 C 10/03/25 12:15 Pulse 70 10/03/25 12:15 Resp 16 10/03/25 12:15 BP 111/59 L 10/03/25 12:15 Pulse Ox 97 10/03/25 12:15 O2 Del Method Nasal Cannula 10/02/25 21:45 O2 Flow Rate 2 10/02/25 21:45 Pain score (VAS): 5/10 right shoulder pain I/O: Intake & Output 10/03/25 10/03/25 10/03/25 07:59 15:59 23:59 Intake Total 1000 100 Output Total 300 Balance 1000 -200 Post-procedural complaints: none Patient feedback: Patient satisfied with anesthetic care.
--- NOTE | 2025-10-03 17:05 | WPDANLDNPN2 ---
Anes-Prog Note L&D-Neuraxial Date/Time: 10/03/25 17:05 Neuraxial medications: intrathecal PF morphine Opiod-related complaints: none Patient feedback: Patient satisfied with post-operative pain management. Comments: right shoulder pain
[2025-10-03 19:37] VITALS: BP 111/73; PULSE 70; RESP 18; TEMP 36.3; O2SAT 99
[2025-10-04] MEDS: ACETAMINOPHEN 500 MG TABLET 1000 MG PO ×3 (04:50→16:49)
[2025-10-04] MEDS: IBUPROFEN 600 MG TABLET PO ×3 (04:50→16:49)
[2025-10-04] MEDS: oxyCODONE HCL (*CRX) 5 MG TAB IR PO (08:01)
[2025-10-04] MEDS: SIMETHICONE 80 MG TAB.CHEW PO ×3 (08:02→16:49)
[2025-10-04] MEDS: DOCUSATE SODIUM 100 MG CAPSULE PO ×2 (08:02→16:48)
[2025-10-04] MEDS: MULTIVIT/MIN/PREN/FOL AC/IRON TABLET 1 TAB PO (08:02)
[2025-10-04 08:15] VITALS: BP 115/70; PULSE 66; RESP 18; TEMP 37; O2SAT 100
[2025-10-04] MEDS: FLUTICASONE PROP 44 MCG (*SP) 10.6 GM 2 PUFF INHALATION ×2 (09:00→20:49)
[2025-10-04] MEDS: oxyCODONE HCL (*CRX) 5 MG TAB IR 10 MG PO ×2 (12:04→19:15)
[2025-10-04 19:18] VITALS: BP 105/58; PULSE 59; RESP 16; TEMP 36.5; O2SAT 100
[2025-10-05] MEDS: ACETAMINOPHEN 500 MG TABLET 1000 MG PO ×2 (02:08→07:33)
[2025-10-05] MEDS: IBUPROFEN 600 MG TABLET PO ×2 (02:08→07:34)
[2025-10-05] MEDS: SIMETHICONE 80 MG TAB.CHEW PO (07:34)
[2025-10-05 08:00] VITALS: BP 120/54; PULSE 62; RESP 16; TEMP 36.3; O2SAT 99
[2025-10-05] MEDS: FLUTICASONE PROP 44 MCG (*SP) 10.6 GM 2 PUFF INHALATION (08:20)
--- NOTE | 2025-10-05 09:47 | PC.NURSE ---
Consulted with mother concerning needs and she shared her ability to independently latch infant optimally without pain. Per mother she feels that her milk is in, her breasts feel full and heavier, she does plan on possibly bottle feeding at home sometimes so her other children can feed the baby. Mother has already contacted her local [facility] office and is already established, and she is receiving a breast pump through [facility] as well. Mother is feeding appropriately for growth of infant and understands stimulating to eat if needed. Infant has had appropriate feedings in the last 24 hours meets the outcomes for weight, output, blood sugar and jaundice at this time. Reinforced understanding of milk production, transition of milk, signs of adequate intake, transition of stool, prevention/relief of engorgement, plugged ducts, mastitis, responsive watching for feeding cues, the different methods of stimulating to breastfeed 1-3 hours after the start of the last feeding, community resources, and when to call a provider using the resource of the feeding sheet along with the mom and baby guide. Mother voiced understanding of the information shared, is confident to continue effectively her at home, when to call for assistance, denies any additional assistance or education at this time. Reported to the Primary RN.
--- NOTE | 2025-10-05 12:55 | PC.NURSE ---
1235- This RN called pt at home and reviewed [facility] [facility] depression screen. Pt scored a 1. States she feels good and had no s/s of depression or anxiety at this time.
[2025-10-06 15:00] VITALS: BP 117/54; PULSE 70; RESP 18; TEMP 36.9; O2SAT 100
== END 2025-10-05 10:35 | disposition home or self-care (01) | DRG 540 ==
LOC: ANHOB2 10-03 13:59 → ANHLDR 10-08 13:47 → ANHOB2 10-08 13:47
PROVIDERS: Admitting Provider Obstetrics & Gynecology; Visit Provider Obstetrics & Gynecology
PROC: 10D00Z1 Extraction of Products of Conception, Low, Open Approach (ICD-10-PCS; CPT 59514; principal; 2025-10-02 12:00)
DX: O24.424 Gestational diabetes mellitus in childbirth, insulin controlled (principal); O40.3XX0 Polyhydramnios, third trimester, not applicable or unspecified; O36.63X0 Maternal care for excessive fetal growth, third trimester, not applicable or unspecified; O32.1XX0 Maternal care for breech presentation, not applicable or unspecified; O99.334 Smoking (tobacco) complicating childbirth; F17.210 Nicotine dependence, cigarettes, uncomplicated; Z3A.38 38 weeks gestation of pregnancy; Z37.0 Single live birth
CPT/HCPCS: 36415; 82948; 85025; 88307; 94640; J0690; A9270; J1885; J2250; J2274; J2405; J2590; J7120

== ENCOUNTER 2025-10-09 10:31 | Outpatient (CLI) | payer OTHER, SELFPAY ==
[2025-10-09] VITALS (8 sets, daily range): BP systolic 109–149; BP diastolic 62–107; PULSE 57–69
--- OUTSIDE RECORDS SUMMARY | 2025-10-09 11:08 | XMS_ITS | Clinical Summary ---
Author Organization [email or web address] Address [address] [facility] [place] [address] Care Team Providers Care Eyelet Punch Operator Name Role Phone Toni Melendez MD Primary Care Provider [phone] Source Comments [email or web address],non-owned Affiliates and Associated Physician Practices is amultiple site organization consisting of ambulatory clinics and hospital sitesin [place], [place], [place] and [place]. This disclosure is being madepursuant to the Care Everywhere program and may not contain all information available regarding this patient. Last updated 18.[email or web address] Allergies No known active allergies Medications * [...] CARDIOLOGY CONSULT Care Provider: Dr. Toni Melendez Car Top Bolter Involved: Dr. Blanca Mendoza Diagnosis: No evidence of congenital heart disease; Increased doppler in ductus arteriosus (pk 1.4 m/s) Date of last echocardiogram: 08/20/2025 Planned Delivery Location: follow up: If delivering at [place] recommend echocardiogram prior to discharge from nursery; If delivery at local [facility], recommend Cardiology evaluation at two weeks of [...] - 09/28/2025 11:59 PM CDT Hospital Encounter [facility] [address] [place] [address] Jose Giang MD Discharge Disposition: Home or Self Care 09/25/2025 2:30 PM CDT - 09/25/2025 11:59 PM CDT Hospital Encounter [facility] [address] [place] [phone] Lili Roman MD Tomlinson, Tracy M, MD Discharge Disposition: Home or Self Care 09/19/2025 1:00 PM CDT - 09/19/2025 11:59 PM CDT Hospital Encounter [facility] [address] [place] [phone] Lili Roman MD Discharge Disposition: Home or Self Care 09/18/2025 2:30 PM CDT - 09/18/2025 11:59 PM CDT Hospital Encounter [facility] [address] [place] [phone] Jose Giang MD Discharge Disposition: Home or Self Care 09/11/2025 1:40 PM CDT - 09/11/2025 11:59 PM CDT Hospital Encounter [facility] [address] [place] [phone] Jose Giang MD Discharge Disposition: Home or Self Care 09/04/2025 2:30 PM CDT - 09/04/2025 11:59 PM CDT Hospital Encounter [facility] [address] [place] [phone] Jose Giang MD Discharge Disposition: Home or Self Care 08/28/2025 10:30 AM CDT - 08/28/2025 11:59 PM CDT Hospital Encounter [facility] [address] [place] [phone] Latosha Cihn MD RIG HAND Discharge Disposition: Home or Self Care 08/24/2025 3:15 PM CDT Hospital Encounter [facility] [address] [place] [phone] Latosha Chin MD Discharge Disposition: Home or Self Care 08/24/2025 3:15 PM CDT Hospital Encounter [facility] [address] [place] [phone] Latosha Chin MD RIG HAND Discharge Disposition: Home or Self Care 08/20/2025 11:15 AM CDT Hospital Encounter [address] [address] Blanca Mendoza MD Pediatric Cardiology Discharge Disposition: Home or Self Care 08/20/2025 11:15 AM CDT Hospital Encounter [address] [address] Blanca Mendoza MD Discharge Disposition: Home or Self Care 08/02/2025 Telephone [facility] [address] [place] [phone] Nina Castelan Appointment 08/01/[address] [phone] Nina Castelan Appointment 07/23/2025 10:52 AM CDT - 07/23/2025 11:59 PM CDT Hospital Encounter [facility] [address] [place] [address] Yamilka Leroy MD Discharge Disposition: Home or Self Care 07/18/2025 Telephone [facility] [address] [place] [phone] Nina Castelan Appointment from Last 3 Months [...] on file 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) Large for gestational age fetus affecting [...] or unspecified fetus (HCC) BIOPHYSICAL PROFILE [facility] Routine 09/11/2025 2:37 PM CDT AMA (advanced maternal age) multigravida 35+, third trimester (HCC) Obesity in (HCC) 34 weeks gestation of (HCC) Smoker Encounter for other screening follow-up (HCC) Large for gestational age fetus affecting management of mother, antepartum, third trimester, other fetus (HCC) Polyhydramnios in third trimester complication, single or unspecified fetus (HCC) BIOPHYSICAL PROFILE [facility] Routine 09/04/2025 3:05 PM CDT [...] History ====== OB History 9. Para 7 [id number] 1. live 2002. Gest. age 42 w [...] in , unspecified control O40.3XX0: Polyhydramnios Procedures 37294: Biophysical Profile W NST 89279: US Uterus Limited Exhibia PACS Anatomical Region Laterality Modality Other 09/25/2025 3:28 PM CDT us Toni Melendez MD [facility] ORDERABLES Edited Result - Final * Sonogram - Complete (08/24/2025 3:23 PM CDT) Only the most recent of2 resultswithin the time period is included. Linked Results Indication ======== Large for dates Advanced maternal age (AMA), multigravida Maternal obesity complicating , class 1 (BMI 30.0 - 34.9) History ====== OB History 9. Para 7 [id number] 1. live 2002. Gest. age 42 w [...] 6 lb 2 oz EFW by Hadlock ([id number]) LGA Growth Overview Exam date [place] BPD [...] 34.9) O09.523: Supervision of elderly multigravida Procedures 87124: [place] [address]: Biophysical Profile W NST Exhibia PACS Anatomical Region Laterality Modality Other 08/24/2025 3:23 PM CDT us Toni Melendez MD [facility] ORDERABLES Edited Result - Final * ECHO [...] 08/20/2025 Exam Date/Time: 08/20/2025 11:45 AM Site: [facility] Current Location: CARE EStaffOrdering Provider: Monie Fuentes Interpreting Physician: Blanca Mendoza MD Paraprofessional Aide Teacher: Missael Infante RDCS Study Info Procedure: ECHO [...] 08/20/2025 Exam Date/Time: 08/20/2025 11:45 AM Site: [facility] Current Location: CARE EStaffOrdering Provider: Monie Fuentes Interpreting Physician: Blanca Mendoza MD Paraprofessional Aide Teacher: Missael Infante [facility] Study Info Procedure: ECHO COMPLETE [...] MD on 08/22/2025 05:31 PM Monie Fuentes APRN-PRINTING GRAY CLOTH TENDER ECHO CUPID Fin al Result from Last 3 Months Insurance [facility] [place] Care Teams Eyelet Punch Operator Relationship Specialty Start Date End Date Toni Melendez MD [address] [place] [id number] PCP - General Obstetrics and Gynecology 05/20/17
[2025-10-09 11:31] LABS: Hematocrit 28.3 % (37.0-47.0); Hemoglobin 9.2 g/dL (12.0-15.0); Immature Granulocyte Percent A 0.3 % (0-0.5); Lymphocytes Absolute Auto 1.83 K/mm3 (0.9-3.2); Mean Corpuscular HGB Conc 32.5 g/dl (32-36); Mean Corpuscular Hemoglobin 30.5 pg (26-34); Mean Corpuscular Volume 93.7 fl (80-100); Nucleated Red Blood Cells Absolute Auto 0.000 K/mm3 (0.0-0.012); Nucleated Red Blood Cells Perc 0.0 % (0.0-0.2); Platelet Count Result 288 k/mm3 (150-375); Red Blood Count 3.02 M/mm3 (4.2-5.4); White Blood Count 8.6 K/mm3 (4.5-10.0)
[2025-10-09 12:15] LABS: Alanine Aminotransferase 29 U/L (6-35); Albumin Level 3.4 g/dL (3.5-5.1); Alkaline Phosphatase 90 U/L (38-126); Anion Gap 3 mmol/L (4-12); Aspartate Amino Transferase 24 U/L (14-36); Bilirubin,Total 0.5 mg/dL (0.2-1.3); Blood Urea Nitrogen 16 mg/dL (7-17); Calcium 9.2 mg/dL (8.4-10.2); Carbon Dioxide 27 mmol/L (22-30); Chloride 106 mmol/L (98-107); Estimated Glomerular Filt Rate > 60; Glucose 86 mg/dL (65-110); Potassium 4.4 mmol/L (3.4-5.0); Sodium 136 mmol/L (137-145); Total Protein 6.6 g/dL (6.3-8.2); Uric Acid 4.0 mg/dL (2.5-7.5)
--- NOTE | 2025-10-09 14:16 | PC.NURSE ---
Discussed pt's blood pressures with provider. Provider had been monitoring pt labs and bp. Provider discharging pt with instructions to stay hydrated, states pt can use Tylenol for headache, and small amounts of caffeine ok. Pt given hypertension handout and instructed to notify provider or return if she notices any signs or symptoms listed. Pt and spouse verbalize understanding.
== END 2025-10-09 13:35 | disposition home or self-care (01) ==
LOC: ANHOBOP 10:35 → ANHOBPP 10:37
PROVIDERS: Visit Provider Obstetrics & Gynecology
DX: O13.9 Gestational [pregnancy-induced] hypertension without significant proteinuria, unspecified trimester (principal); Z3A.00 Weeks of gestation of pregnancy not specified
CPT/HCPCS: 36415; 80053; 84550; 85025; 99199